=== PATIENT | female | born 1945 | race Caucasian/White ===

== ENCOUNTER 2023-05-15 15:33 | Inpatient (IN) ==
[2023-05-15 16:41] LABS: Basophils # (auto) 0.03 K/uL (0.00-0.20); Basophils % (auto) 0.2 %; Eosinophils # (auto) 0.01 K/uL (0.00-0.50); Eosinophils % (auto) 0.1 %; Hematocrit (blood only) 31.2 % (37.0-47.0); Hemoglobin 10.7 g/dl (12.0-16.0); Immature Granulocytes # (auto) 0.05 K/uL (0.01-0.20); Immature Granulocytes % (auto) 0.4 %; Lymphocytes # (auto) 0.79 K/uL (1.20-3.40); Lymphocytes % (auto) 6.2 %; Mean Corpuscular Hemoglobin 29.6 pg (25.0-34.0); Mean Corpuscular Hgb Conc 34.3 g/dL (32.0-36.0); Mean Corpuscular Volume 86.4 fL (80.0-100.0); Mean Platelet Volume 10.7 fL (9.4-12.4); Monocytes # (auto) 1.59 K/uL (0.11-0.59); Monocytes % (auto) 12.5 %; Neutrophils # (auto) 10.23 K/uL (1.40-6.50); Neutrophils % (auto) 80.6 %; Platelet Count 212 K/uL (130-400); RDW Coefficient of Variation 14.6 % (11.5-14.5); RDW Standard Deviation 46.9 fL (36.4-46.3); Red Blood Count 3.61 M/uL (4.20-5.40)
--- NOTE | 2023-05-15 16:45 | XRay Report ---
XR chest 1V not portable HISTORY: 78 years-old Female Weakness weakness COMPARISON: None TECHNIQUE: AP view of the chest FINDINGS: Cardiomediastinal and hilar silhouettes are within normal limits. The patient is mildly rotated. No p neumothorax, pleural effusion, airspace consolidation or overt pulmonary edema. Displaced and impacte d comminuted left proximal humeral fracture. IMPRESSION: 1. No acute cardiopulmonary abnormality. 2. Displaced, comminuted and impacted left proximal humeral fracture, possibly subacute. ACT 112: Negative or not required by law. The above report was generated using voice recognition software. It may contain grammatical, syntax o r spelling errors. Electronically signed by: Socrates Copeland M.D. 05/15/2023 4:43 PM
[2023-05-15 16:59] LABS: Albumin Globulin Ratio 1.8 (0.9-2); Albumin Level 3.9 gm/dl (3.4-5.0); BUN Creatinine Ratio 32.7 (10-20); Bilirubin,Total 1.9 mg/dl (0.2-1.0); Calcium 9.6 mg/dl (8.6-10.3); Creatinine Clr Calc Pharmacy 47.1 ml/min; Est GFR (African American) 64.5 ml/min; Est GFR (Non-African American) 55.6 ml/min; Globulin 2.2 gm/dl (2.5-4.0); Magnesium 1.9 mg/dl (1.7-2.4); Potassium 4.4 mmol/L (3.5-5.1); Total Protein 6.1 gm/dl (6.0-8.3)
[2023-05-15 17:05] LABS: Partial Thromboplastin Ratio 0.8; Partial Thromboplastin Time 22 Seconds (21-31); Troponin I High Sensitivity 35.7 pg/ml (0-14)
[2023-05-15 17:14] LABS: Thyroid Stimulating Hormone 0.755 uIu/ml (0.300-4.500)
--- NOTE | 2023-05-15 17:31 | Emergency Department Note ---
Impression & Plan Generalized weakness, Left humeral fracture, Fall from standing, Rhabdomyolysis, Elevated CK, Acute hyponatremia, Non-ST elevation IN (NSTEMI) ED Provider Note HISTORY OF PRESENT ILLNESS: Patient is a 78-year-old female presenting with left shoulder pain and weakness. Patient's landlord who checked on the patient today and found her down on the ground provides most of the history. Reports that the patient fell 3 days ago. She reportedly fell and hit her head 3 days ago. She was found by her landlord sitting on the ground in her apartment today. Patient is amnestic to falling and does not remember any events leading to her fall. She is currently complaining of left shoulder pain, left elbow pain, and left knee pain. She states she is not on any anticoagulation. Landlord was concerned that patient was very confused and called 911. On EMS arrival, she was having difficulties ambulating secondary to weakness. Patient denies any chest pain or shortness of breath. Denies any abdominal pain. ROS: as above PHYSICAL EXAM: Constitutional: Patient appears in no acute distress. HENT: Head: Normocephalic. Old appearing ecchymosis to the right forehead. Eyes: EOMI, PERRL Mouth/Throat: Mucous membranes moist. Neck: Trachea midline. Neck supple. No midline cervical spine tenderness to palpation. Cardiovascular: RRR, No murmurs, rubs or gallops. Intact distal pulses. Pulmonary/Chest: No respiratory distress. Breath sounds clear and equal bilaterally. No wheezes or rales. No chest wall tenderness to palpation. Abdominal: Abdomen soft, no tenderness, rebound or guarding. Back: No midline spinal tenderness, no paraspinal tenderness, no CVA tenderness. Musculoskeletal: - LUE: Ecchymosis and swelling diffusely across the left shoulder. No open wounds. Unable to range his shoulder secondary to pain. Patient also has ecchymosis to the left lateral elbow. She is able to flex and extend at the elbow. Intact radial pulse. Able to give thumbs up, okay sign and cross fingers. - LLE: Patient is able to straight leg raise bilaterally. No reproducible tenderness to palpation of the pelvis. She does have ecchymosis to the medial part of her left knee. Able to flex and extend the knee without significant pain. Intact DP and PT pulses. Able to dorsiflex and plantarflex at the ankle. Skin: Warm and dry. No rash, erythema, pallor or cyanosis Psychiatric: Appropriate mood and affect for situation. Neurological: Alert and keenly responsive. CN II-XII grossly intact, moving all extremities equally and fully. MDM: - Vitals signs showed tachypnea. - History obtained via patient and patient's landlord, given patient's confusion. Patient presents with left shoulder pain and weakness. Patient reportedly has been having recurrent falls in the last few days that she is amnestic to. Her landlord went to check on her today and found her on the ground. Patient is complaining of left shoulder pain. Denies any chest pain or shortness of breath. Denies any dysuria or hematuria. - Chronic conditions affecting care: CKD; hypothyroidism; HTN - Differential diagnoses include, but are not limited to: UTI; intracranial hemorrhage; CVA; humeral fracture; electrolyte abnormality - Order placed for continuous cardiac monitoring. At this time, monitor showed rate of 82 bpm with normal sinus rhythm, per my interpretation. - External medical records reviewed. History and physical note dated 10/05/2020 was reviewed. Patient follows in [facility] ophthalmology for her cataracts. - EKG interpreted by myself showed normal sinus rhythm. Rate 79 bpm. QT 410. No acute ischemic changes. - Laboratory workup interpreted by myself showed leukocytosis (WBC 12.70) with left shift; hyponatremia (Na 128); normal creatinine; elevated CK (1180); elevated troponin (35.7) - CXR negative for pneumonia, per my interpretation. Radiology did note a displaced, comminuted and impacted left proximal humeral fracture - Xray knee negative for fracture, per my interpretation - Xray left elbow negative for fracture - CT head wo contrast negative for acute intracranial pathology - CT cervical spine wo negative for acute cervical spine fracture, but he did have a right clavicular head fracture. - Patient given 1L NS in ER - Significant concern for patient's ability to care for self at home. Will admit to hospitalist service. - Discussion was had with adult protective caseworker about patient's case and need for admission - Hospitalist consulted for admission - Patient admitted to [facility] hospitalist service for further evaluation and management. ASSESSMENT AND PLAN: Diagnosis: generalized weakness; left humeral fracture; acute hyponatremia; rhabdomyolysis; NSTEMI; elevated CK Plan: admit Past Med/Surg History Medical History History of colon polyps Endometrial cancer HX HYSTERECTOMY 20 YR AGO , HX RADIATION Hypothyroid HTN (hypertension) Chronic kidney disease Surgical History History of cataract surgery LEFT History of colonoscopy History of hysterectomy Family History Family/Other Hypertension Grandmother Breast cancer Brother Cancer Brother Cancer Social History Smoking Status: Former smoker Do You Dip or Chew Tobacco: No; Hx Alcohol Use: Yes Alcohol type: wine Preferred Language: Ukrainian Communication Ability: Effective Visual Impairment: Limited Hearing Ability: Normal 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: No Beliefs That Will Affect Care: None marital status: Single Current Living Situation: Alone current occupational status: retired Feels Safe at Home: Yes Assistive Devices: Glasses Allergies Allergies Allergy/AdvReac Type Severity Reaction Status Date / Time Penicillins Allergy Intermediate HX ASTHMA, Verified 05/15/23 16:52 MADE ASTHMA LIKE SYMPTOMS WORSE Home Meds Home Medications Medication Instructions Recorded Confirmed aspirin 81 mg tablet,delayed 81 mg PO DAILY 04/25/19 05/15/23 release (Adult Low Dose Aspirin) hydrochlorothiazide 25 mg tablet 25 mg PO QAM 04/25/19 05/15/23 latanoprost 0.005 % eye drops 1 drops OPB QPM 04/25/19 05/15/23 lisinopril 40 mg tablet 40 mg PO QAM 04/25/19 05/15/23 atorvastatin 20 mg tablet 20 mg PO QAM 05/15/23 05/15/23 carvedilol 12.5 mg tablet 12.5 mg PO BID 05/15/23 05/15/23 cholecalciferol (vitamin D3) 25 25 mcg PO DAILY 05/15/23 05/15/23 mcg (1,000 unit) capsule (Vitamin D3) levothyroxine 112 mcg tablet 112 mcg PO DAILYBB 05/15/23 05/15/23 vitamin B complex-vitamin C-folic 1 tab PO DAILY 05/15/23 05/15/23 acid 1 mg tablet Results & Data (ED) Vital Signs Vital Signs - 24 hr 05/15/23 15:24 05/15/23 15:24 05/15/23 16:20 Temperature 36.8 C Temperature Source Oral Pulse Rate 90 Respiratory Rate 25 H Respiratory Effort / Characteristics Non-Labored Spontaneous Respiratory Depth Normal Respiratory Pattern Regular Blood Pressure 107/73 Blood Pressure Mean 84 Pulse Oximetry 97 97 97 Oxygen Delivery Method Room Air Room Air Room Air Oxygen Flow Rate 0 0 Sepsis Recent Fever Within 48 Hours No Sepsis New/Unexplained Change in Mental Status Yes Sepsis Action Taken by Nursing No Action Required 05/15/23 16:20 05/15/23 17:10 Temperature Temperature Source Pulse Rate 81 Respiratory Rate Respiratory Effort / Characteristics Respiratory Depth Respiratory Pattern Blood Pressure Blood Pressure Mean Pulse Oximetry 97 Oxygen Delivery Method Room Air Oxygen Flow Rate Sepsis Recent Fever Within 48 Hours Sepsis New/Unexplained Change in Mental Status Sepsis Action Taken by Nursing Laboratory Data 05/15/23 16:00 05/15/23 16:00 Lab Results 05/15/23 05/15/23 Range/Units 16:00 17:31 WBC 12.70 H (4.8-10.8) K/ul RBC 3.61 L (4.20-5.40) M/uL Hgb 10.7 L (12.0-16.0) g/dl Hct 31.2 L (37.0-47.0) % MCV 86.4 (80.0-100.0) fL MCH 29.6 (25.0-34.0) pg MCHC 34.3 (32.0-36.0) g/dL RDW Std Deviation 46.9 H (36.4-46.3) fL RDW Coeff of Nanci 14.6 H (11.5-14.5) % Plt Count 212 (130-400) K/uL MPV 10.7 (9.4-12.4) fL Immature Gran % (Auto) 0.4 % Neut % (Auto) 80.6 % Lymph % (Auto) 6.2 % Cocke % (Auto) 12.5 % Eos % (Auto) 0.1 % Baso % (Auto) 0.2 % Neut # (Auto) 10.23 H (1.40-6.50) K/uL Lymph # (Auto) 0.79 L (1.20-3.40) K/uL Cocke # (Auto) 1.59 H (0.11-0.59) K/uL Eos # (Auto) 0.01 (0.00-0.50) K/uL Baso # (Auto) 0.03 (0.00-0.20) K/uL Immature Gran # (Auto) 0.05 (0.01-0.20) K/uL PT 11.0 (9.0-12.0) Seconds INR 1.0 (0.9-1.1) APTT 22 (21-31) Seconds PTT Ratio 0.8 Sodium 128 L (136-145) mmol/L Potassium 4.4 (3.5-5.1) mmol/L Chloride 93 L (98-107) mmol/L Carbon Dioxide 25 (21-32) mmol/L Anion Gap 10 (3-11) BUN 32 H (6-23) mg/dl Creatinine 0.98 (0.6-1.2) mg/dl Est Cr Clr Drug Dosing 47.1 ml/min Est GFR ( Amer) 64.5 ml/min Est GFR (Non-Af Amer) 55.6 ml/min BUN/Creatinine Ratio 32.7 H (10-20) Glucose 109 H (70-99(Fasting)) mg/dl Osmolality 275 L (280-300) mOsm/kg Calcium 9.6 (8.6-10.3) mg/dl Magnesium 1.9 (1.7-2.4) mg/dl Total Bilirubin 1.9 H (0.2-1.0) mg/dl AST 53 H (13-39) U/L ALT 29 (7-52) U/L Alkaline Phosphatase 52 (34-104) U/L Total Creatine Kinase 1180 H Cancelled (26-192) U/L Troponin I High Sens 35.7 H (0-14) pg/ml Total Protein 6.1 (6.0-8.3) gm/dl Albumin 3.9 (3.4-5.0) gm/dl Globulin 2.2 L (2.5-4.0) gm/dl Albumin/Globulin Ratio 1.8 (0.9-2) TSH 0.755 (0.300-4.500) uIu/ml Administered Medications Discontinued Medications Sodium Chloride (Nss) 1,000 mls @ 999 mls/hr IV .Q1H1M ONE Stop: 05/15/23 18:31 Last Admin: 05/15/23 18:05 Dose: 999 mls/hr Documented By: WISAM Imaging Data Radiologist's Impression: Chest X-Ray 05/15/23 16:20 XR chest 1V not portable HISTORY: 78 years-old Female Weakness weakness COMPARISON: None TECHNIQUE: AP view of the chest FINDINGS: Cardiomediastinal and hilar silhouettes are within normal limits. The patient is mildly rotated. No pneumothorax, pleural effusion, airspace consolidation or overt pulmonary edema. Displaced and impacted comminuted left proximal humeral fracture. IMPRESSION: 1. No acute cardiopulmonary abnormality. 2. Displaced, comminuted and impacted left proximal humeral fracture, possibly subacute. ACT 112: Negative or not required by law. The above report was generated using voice recognition software. It may contain grammatical, syntax or spelling errors. Electronically signed by: Socrates Copeland M.D. 05/15/2023 4:[address] 05/15/23 17:26 CT SCAN OF THE CERVICAL SPINE CLINICAL HISTORY: Fall. COMPARISON STUDY: No priors. TECHNIQUE: CT scan of the cervical spine is performed from the skull base to the upper thoracic spine. Images are reviewed in the axial, sagittal, and coronal planes. IV contrast was not administered for this examination. A dose lowering technique was utilized adhering to the principles of ALARA. FINDINGS: Skeletal structures: The skeletal structures are osteopenia. There is no evidence of fracture or subluxation involving the cervical spine. Vertebral body height and alignment are maintained. Tiny anterior osteophytes are seen throughout. The odontoid process and lateral masses are intact. The atlantoaxial articulation is preserved noting mild productive degenerative change. The spinous processes appear intact. A comminuted fracture of the right clavicle is partially imaged. Intervertebral discs: There is mild multilevel disc space narrowing, greatest at C5-C6 and C6-C7. Central canal: A posterior disc osteophyte complex at C5-C6 may contribute to mild acquired compromise of the central canal. Soft tissues: The prevertebral and paraspinous soft tissues are within normal limits. The thyroid gland is atrophic. There is atherosclerotic calcification of the carotid bulbs. There is hemorrhage around a right clavicular fracture. Calvarium: The visualized calvarium at the skull base appears intact. Brain parenchyma: Partially visualized brain parenchyma at the skull base is within normal limits. Sinuses and mastoids: There is trace mucosal thickening in the right maxillary antrum. The mastoid air cells are well pneumatized. Lung apices: Clear as visualized. IMPRESSION: 1. There is no evidence of fracture or subluxation involving the cervical spine. 2. Osteopenia and spondylotic change as above. 3. A comminuted fracture of the right clavicular head is partially visualized. ACT 112: Negative or not required by law. Electronically signed by: Amrit Delgado M.D. 05/15/2023 6:[address] 05/15/23 17:26 CT SCAN OF THE BRAIN WITHOUT IV CONTRAST CLINICAL HISTORY: Fall. COMPARISON STUDY: No priors. TECHNIQUE: Unenhanced axial CT scan of the brain is performed from the vertex to the skull base. A dose lowering technique was utilized adhering to the principles of ALARA. CT DOSE: 1601.13 mGy.cm FINDINGS: Brain parenchyma: There is age-related involutional change noting advanced confluent subcortical and periventricular microangiopathic disease. There is no hemorrhage, mass effect, or evidence of acute territorial ischemia by CT criteria. Frederick-white matter differentiation is preserved. No extra-axial fluid collection is seen. Ventricles, sulci, cisterns: Prominent secondary to involutional change. Intracranial vasculature: There is atherosclerotic calcification of the cavernous carotid and vertebral arteries. Calvarium: The skeletal structures are osteopenic. No depressed calvarial fracture is identified. Sinuses and mastoids: The visualized paranasal sinuses are clear. The mastoid air cells are well pneumatized. Orbits: The bony orbits are grossly intact. There are bilateral ocular lens implants. IMPRESSION: There is no hemorrhage, mass effect, or evidence of acute territorial ischemia by CT criteria. ACT 112: Negative or not required by law. Electronically signed by: Amrit Delgado M.D. 05/15/2023 6:38 PM Discharge Plan Visit Data Chief Complaint: Altered Mental Status ED Provider: Elizabeth Guerrero Discharge Problem: Generalized weakness, Left humeral fracture, Fall from standing, Rhabdomyolysis, Elevated CK, Acute hyponatremia, Non-ST elevation IN (NSTEMI) Forms Stand Alone Forms: [facility] Prescriptions Prescriptions: No Action aspirin [Adult Low Dose Aspirin] 81 mg tablet,delayed release (DR/EC) 81 mg PO DAILY hydrochlorothiazide 25 mg tablet 25 mg PO QAM latanoprost 0.005 % drops 1 drops OPB QPM Patient Comments: BOTH EYES lisinopril 40 mg tablet 40 mg PO QAM atorvastatin 20 mg tablet 20 mg PO QAM carvedilol 12.5 mg tablet 12.5 mg PO BID B complex-vitamin C-folic acid 1 mg Tablet 1 tab PO DAILY levothyroxine 112 mcg tablet 112 mcg PO DAILYBB cholecalciferol (vitamin D3) [Vitamin D3] 25 mcg (1,000 unit) Capsule 25 mcg PO DAILY Referrals Referrals: Paul De La Rosa, [Primary Care Provider] -
--- NOTE | 2023-05-15 17:57 | Electrocardiogram Report ---
Test Reason : Blood Pressure : / mmHG Vent. Rate : 079 BPM Atrial Rate : 079 BPM P-R Int : 162 ms QRS Dur : 088 ms QT Int : 410 ms P-R-T Axes : 036 -47 061 degrees QTc Int : 470 ms Normal sinus rhythm Left axis deviation Low voltage QRS Abnormal ECG When compared with ECG of 30-JUL-2013 15:34, Premature ventricular complexes are no longer Present Confirmed by Valeriy Wen ([id number]) on 05/15/2023 5:57:32 PM Referred By: Confirmed By:Valeriy Wen
[2023-05-15] MEDS: SODIUM CHLORIDE 0.9% 1,000 ML IV ONE ×2 (18:05→21:08)
--- NOTE | 2023-05-15 18:26 | History & Physical Report ---
Date of Service May 15, 2023 Assessment & Plan (1) Acute metabolic encephalopathy: Plan: This is a 78-year-old female with PMH of hypertension, CKD 3, dyslipidemia, acquired hypothyroidism, chronic borderline hyponatremia and other medical problems listed below who presents after multiple falls at home and acute metabolic encephalopathy in setting of UTI and rhabdomyolysis. In setting of UTI and rhabdo Mentation improving in ED, but unsure nature or details of either fall CT head without acute intracranial abnormality Expect improvement with IV fluids, abx (2) UTI (urinary tract infection): Plan: Abnormal UA. Started on empiric Rocephin, follow urine culture (3) Rhabdomyolysis: Plan: CK >1000 in setting of falls Cr at baseline ~ 1 Initial HS trop mildly elevated at 35.7, no chest pain or acute EKG changes Continue IV fluids, repeat CK in AM (4) Repeated falls: (5) Traumatic ecchymosis of left upper arm: (6) Clavicular fracture: (7) Proximal humeral fracture: Plan: Has had at least 2 unwitnessed falls in the past few days with extensive bruising on L arm Lives alone and ambulates independently at baseline Evidence of displaced, comminuted and impacted left proximal humeral fracture, possibly subacute Added shoulder XR for better visualization Ortho consulted, pain control, fall precautions, PT/OT when able (8) CKD (chronic kidney disease), stage III: Plan: Follows with Dr. Stevens, h/o renal stones. Cr at baseline ~1. Continue to monitor with daily BMP (9) HTN (hypertension): Plan: Home regimen includes carvedilol 12.5mg BID, hctz and lisinopril 40mg Given 1L NSS in ED but BP remains borderline low. Continue IV fluids overnight, will hold antihypertensives, to be reassessed tomorrow (10) Hypothyroidism: Plan: Continue levothyroxine DVT Ppx: SCDs Code status: FULL PCP: Janes De La Rosa Dispo: Admitted to PCU Updated patient's cousin Noemi over the phone [phone] (closest living relative), resides in [place] is looking for patient's advance directive paperwork at home. Patient seen in collaboration with Dr. Owens. Please see addendum. I spent a total of 75 minutes coordinating, documenting, and providing care for this patient excluding time spent in the performance of separately billed services. History of Present Illness Chief Complaint: Altered mental status Primary Care Provider: Paul De La Rosa DO This is a 78-year-old female with PMH of hypertension, CKD 3, dyslipidemia, acquired hypothyroidism, chronic borderline hyponatremia and other medical problems listed below who presents after multiple falls at home and altered mental status. History primarily obtained from landlord as patient does not remember events from the past few days other than she felt that she has been in a "black hole". Patient lives in [facility] and predominantly student housing and has lived in the building for the past 40 years. He is close to both the landlord and maintenance staff, who check in on her a few times per week. At baseline, patient is alert and oriented, independent with A DLs and walks a few miles a day. [place] or [place] when she fell a few days ago. Does not remember any details of the fall. When the maintenance staff checked on patient earlier today, she was found on the ground in between the bathroom in her bedroom and was brought to the ED for further evaluation. Patient does not remember any details of this fall or how long she was on the ground. Endorses pain in areas with bruising such as left arm, left knee and right forehead. Denies any fever, chills, lightheadedness, chest pain, shortness of breath, nausea, vomiting, abdominal pain, dysuria, hematuria, diarrhea or constipation. Does not have any close living family but does have a cousin who resides in [place]. Otherwise considers as close his family. 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 Allergies Allergy/AdvReac Type Severity Reaction Status Date / Time Penicillins Allergy Intermediate HX ASTHMA, Verified 05/15/23 16:52 MADE ASTHMA LIKE SYMPTOMS WORSE Home Medications Medication Instructions Recorded Confirmed Type aspirin 81 mg tablet,delayed 81 mg PO DAILY 04/25/19 05/15/23 History release (Adult Low Dose Aspirin) hydrochlorothiazide 25 mg tablet 25 mg PO QAM 04/25/19 05/15/23 History latanoprost 0.005 % eye drops 1 drops OPB QPM 04/25/19 05/15/23 History lisinopril 40 mg tablet 40 mg PO QAM 04/25/19 05/15/23 History atorvastatin 20 mg tablet 20 mg PO QAM 05/15/23 05/15/23 History carvedilol 12.5 mg tablet 12.5 mg PO BID 05/15/23 05/15/23 History cholecalciferol (vitamin D3) 25 25 mcg PO DAILY 05/15/23 05/15/23 History mcg (1,000 unit) capsule (Vitamin D3) levothyroxine 112 mcg tablet 112 mcg PO DAILYBB 05/15/23 05/15/23 History vitamin B complex-vitamin C-folic 1 tab PO DAILY 05/15/23 05/15/23 History acid 1 mg tablet Past Med/Surg History Medical History CKD (chronic kidney disease), stage III Hypothyroidism History of colon polyps Endometrial cancer HX HYSTERECTOMY 20 YR AGO , HX RADIATION HTN (hypertension) Surgical History Status post EDY-BSO History of cataract surgery LEFT History of colonoscopy History of hysterectomy Family History Family/Other Hypertension Grandmother Breast cancer Brother Cancer Brother Cancer Social History Smoking Status: Never smoker Second Hand Exposure: No; Do You Dip or Chew Tobacco: No; Hx Alcohol Use: No Hx Substance Use: No Preferred Language: [place] Sudanese Communication Ability: Effective Visual Impairment: Limited Hearing Ability: Normal Director Sports Required: No Beliefs That Will Affect Care: None marital status: Single Current Living Situation: Alone current occupational status: retired Other Information That Helps Us Care for You: No Feels Safe at Home: Yes Safety Concerns: Feels Safe At This Time Assistive Devices: Cane and Other Review of Systems Review of Systems: At least ten systems reviewed and negative except as noted in the HPI. Physical Exam Physical Exam: General Appearance: WD/WN, vitals as above, NAD, sitting up in bed, pleasant Head: normocephalic, + bruising on R forehead Eyes: normal inspection, PERRL, conjunctivae normal, anicteric sclerae ENT: external ear and nose normal, oropharynx normal Neck: normal visual inspection, trachea midline, no thyromegaly Respiratory: normal respiratory effort, lungs clear to auscultation, no wheeze, rales, rhonchi. No accessory muscle use Cardiovascular: regular rate, rhythm, no murmur, normal peripheral pulses, no BLE edema. Vessels: no JVD Chest: normal inspection of chest Abdomen/GI: normal bowel sounds, soft, nontender, no hepatosplenomegaly Extremities/Musculoskeletal: + Significant ecchymosis and edema of left arm, shoulder displaced, TTP, L medical knee and L foot prox. to great toe with ecchymosis, edema. No cyanosis or clubbing, extremities motor strength 5/5 Neurologic: PERRL, EOMI, accommodation nl, no face palsy, no dysarthria, CN's II-XI intact bilaterally and moves all extremities Psychiatric: A+Ox3 with some transient confusion, limited insight Skin: no rashes, normal color, warm/dry Results & Data Results & Data Vital Signs (Past 12 Hours) Vital Signs Temp Pulse Resp BP Pulse Ox O2 Del Method O2 Flow Rate 05/15/23 17:10 81 05/15/23 16:20 97 Room Air 05/15/23 16:20 97 Room Air 0 05/15/23 15:24 97 Room Air 0 05/15/23 15:24 36.8 C 90 25 H 107/73 97 Room Air Laboratory Results Short CBC 05/15/23 Range/Units 16:00 WBC 12.70 H (4.8-10.8) K/ul Hgb 10.7 L (12.0-16.0) g/dl Hct 31.2 L (37.0-47.0) % Plt Count 212 (130-400) K/uL BMP 05/15/23 16:00 Sodium 128 L Potassium 4.4 Chloride 93 L Carbon Dioxide 25 BUN 32 H Creatinine 0.98 Glucose 109 H Calcium 9.6 Cardiac Enzymes 05/15/23 05/15/23 Range/Units 16:00 17:31 Total Creatine Kinase 1180 H Cancelled (26-192) U/L Liver Function 05/15/23 Range/Units 16:00 Total Bilirubin 1.9 H (0.2-1.0) mg/dl AST 53 H (13-39) U/L ALT 29 (7-52) U/L Alkaline Phosphatase 52 (34-104) U/L Albumin 3.9 (3.4-5.0) gm/dl Diagnostic Findings Chest X-Ray 05/15/23 16:20 XR chest 1V not portable HISTORY: 78 years-old Female Weakness weakness COMPARISON: None TECHNIQUE: AP view of the chest FINDINGS: Cardiomediastinal and hilar silhouettes are within normal limits. The patient is mildly rotated. No pneumothorax, pleural effusion, airspace consolidation or overt pulmonary edema. Displaced and impacted comminuted left proximal humeral fracture. IMPRESSION: 1. No acute cardiopulmonary abnormality. 2. Displaced, comminuted and impacted left proximal humeral fracture, possibly subacute. ACT 112: Negative or not required by law. The above report was generated using voice recognition software. It may contain grammatical, syntax or spelling errors. Electronically signed by: Socrates Copeland M.D. 05/15/2023 4:[address] 05/15/23 17:26 CT SCAN OF THE CERVICAL SPINE CLINICAL HISTORY: Fall. COMPARISON STUDY: No priors. TECHNIQUE: CT scan of the cervical spine is performed from the skull base to the upper thoracic spine. Images are reviewed in the axial, sagittal, and coronal planes. IV contrast was not administered for this examination. A dose lowering technique was utilized adhering to the principles of ALARA. FINDINGS: Skeletal structures: The skeletal structures are osteopenia. There is no evidence of fracture or subluxation involving the cervical spine. Vertebral body height and alignment are maintained. Tiny anterior osteophytes are seen throughout. The odontoid process and lateral masses are intact. The atlantoaxial articulation is preserved noting mild productive degenerative change. The spinous processes appear intact. A comminuted fracture of the right clavicle is partially imaged. Intervertebral discs: There is mild multilevel disc space narrowing, greatest at C5-C6 and C6-C7. Central canal: A posterior disc osteophyte complex at C5-C6 may contribute to mild acquired compromise of the central canal. Soft tissues: The prevertebral and paraspinous soft tissues are within normal limits. The thyroid gland is atrophic. There is atherosclerotic calcification of the carotid bulbs. There is hemorrhage around a right clavicular fracture. Calvarium: The visualized calvarium at the skull base appears intact. Brain parenchyma: Partially visualized brain parenchyma at the skull base is within normal limits. Sinuses and mastoids: There is trace mucosal thickening in the right maxillary antrum. The mastoid air cells are well pneumatized. Lung apices: Clear as visualized. IMPRESSION: 1. There is no evidence of fracture or subluxation involving the cervical spine. 2. Osteopenia and spondylotic change as above. 3. A comminuted fracture of the right clavicular head is partially visualized. ACT 112: Negative or not required by law. Electronically signed by: Amrit Delgado M.D. 05/15/2023 6:[address] 05/15/23 17:26 CT SCAN OF THE BRAIN WITHOUT IV CONTRAST CLINICAL HISTORY: Fall. COMPARISON STUDY: No priors. TECHNIQUE: Unenhanced axial CT scan of the brain is performed from the vertex to the skull base. A dose lowering technique was utilized adhering to the principles of ALARA. CT DOSE: 1601.13 mGy.cm FINDINGS: Brain parenchyma: There is age-related involutional change noting advanced confluent subcortical and periventricular microangiopathic disease. There is no hemorrhage, mass effect, or evidence of acute territorial ischemia by CT criteria. Frederick-white matter differentiation is preserved. No extra-axial fluid collection is seen. Ventricles, sulci, cisterns: Prominent secondary to involutional change. Intracranial vasculature: There is atherosclerotic calcification of the cavernous carotid and vertebral arteries. Calvarium: The skeletal structures are osteopenic. No depressed calvarial fracture is identified. Sinuses and mastoids: The visualized paranasal sinuses are clear. The mastoid air cells are well pneumatized. Orbits: The bony orbits are grossly intact. There are bilateral ocular lens implants. IMPRESSION: There is no hemorrhage, mass effect, or evidence of acute territorial ischemia by CT criteria. ACT 112: Negative or not required by law. Electronically signed by: Amrit Delgado M.D. 05/15/2023 6:38 PM ECG Additional Comments: EKG reviewed- sinus rhythm, no acute ST changes Code Status & VTE Plan VTE Prophylaxis Plan VTE Prophylaxis will be ordered: Yes Supervising Physician Co-Signing Physician Notes Pt was seen and examined by myself, Cheyenne Owens MD on the day of service. Care was coordinated with Pattie Beasley PA-C. 78yoF presenting with AMS and fall. Somewhat confused on exam. Significantly bruised on her face L shoulder, knees and lower extremities Imaging with noted humeral head fracture and possible fracture of the clavicle. UA suggestive of a severe infection, urine Cx pending. IV Rocephin, ortho consult Otherwise as above. I spent a total [id number] coordinating, documenting, and providing care for this patient excluding time spent in the performance of separately billed services
--- NOTE | 2023-05-15 18:40 | CT Scan Report ---
CT SCAN OF THE BRAIN WITHOUT IV CONTRAST CLINICAL HISTORY: Fall. COMPARISON STUDY: No priors. TECHNIQUE: Unenhanced axial CT scan of the brain is performed from the vertex to the skull base. A do se lowering technique was utilized adhering to the principles of ALARA. CT DOSE: 1601.13 mGy.cm FINDINGS: Brain parenchyma: There is age-related involutional change noting advanced confluent subcortical and periventricular microangiopathic disease. There is no hemorrhage, mass effect, or evidence of acute t erritorial ischemia by CT criteria. Frederick-white matter differentiation is preserved. No extra-axial fl uid collection is seen. Ventricles, sulci, cisterns: Prominent secondary to involutional change. Intracranial vasculature: There is atherosclerotic calcification of the cavernous carotid and vertebr al arteries. Calvarium: The skeletal structures are osteopenic. No depressed calvarial fracture is identified. Sinuses and mastoids: The visualized paranasal sinuses are clear. The mastoid air cells are well pneu matized. Orbits: The bony orbits are grossly intact. There are bilateral ocular lens implants. IMPRESSION: There is no hemorrhage, mass effect, or evidence of acute territorial ischemia by CT lor palacio. ACT 112: Negative or not required by law. Electronically signed by: Amrit Delgado M.D. 05/15/2023 6:38 PM
--- NOTE | 2023-05-15 18:59 | CT Scan Report ---
CT SCAN OF THE CERVICAL SPINE CLINICAL HISTORY: Fall. COMPARISON STUDY: No priors. TECHNIQUE: CT scan of the cervical spine is performed from the skull base to the upper thoracic spine . Images are reviewed in the axial, sagittal, and coronal planes. IV contrast was not administered fo r this examination. A dose lowering technique was utilized adhering to the principles of ALARA. FINDINGS: Skeletal structures: The skeletal structures are osteopenia. There is no evidence of fracture or subl uxation involving the cervical spine. Vertebral body height and alignment are maintained. Tiny anteri or osteophytes are seen throughout. The odontoid process and lateral masses are intact. The atlantoax ial articulation is preserved noting mild productive degenerative change. The spinous processes appea r intact. A comminuted fracture of the right clavicle is partially imaged. Intervertebral discs: There is mild multilevel disc space narrowing, greatest at C5-C6 and C6-C7. Central canal: A posterior disc osteophyte complex at C5-C6 may contribute to mild acquired compromis e of the central canal. Soft tissues: The prevertebral and paraspinous soft tissues are within normal limits. The thyroid gla nd is atrophic. There is atherosclerotic calcification of the carotid bulbs. There is hemorrhage arou nd a right clavicular fracture. Calvarium: The visualized calvarium at the skull base appears intact. Brain parenchyma: Partially visualized brain parenchyma at the skull base is within normal limits. Sinuses and mastoids: There is trace mucosal thickening in the right maxillary antrum. The mastoid ai r cells are well pneumatized. Lung apices: Clear as visualized. IMPRESSION: 1. There is no evidence of fracture or subluxation involving the cervical spine. 2. Osteopenia and spondylotic change as above. 3. A comminuted fracture of the right clavicular head is partially visualized. ACT 112: Negative or not required by law. Electronically signed by: Amrit Delgado M.D. 05/15/2023 6:56 PM
--- NOTE | 2023-05-15 19:13 | XRay Report ---
LEFT KNEE 3 VIEWS CLINICAL HISTORY: Fall. Left knee injury. FINDINGS: AP, crosstable lateral, and sunrise views of the left knee are obtained. No prior studies a re available for comparison at the time of dictation. The skeletal structures are osteopenic. No frac ture is seen. There is moderate degenerative narrowing in the medial and patellofemoral compartments. Mild narrowing is seen in the lateral compartment. There is chondrocalcinosis within the medial and lateral components. There are marginal osteophytes, patellar enthesophytes, and degenerative beaking of the tibial spine. A small joint effusion is observed. There is soft tissue edema around the knee. IMPRESSION: 1. Soft tissue swelling and small joint effusion with no fracture identified. 2. Osteopenia with degenerative change and chondrocalcinosis as above. Electronically signed by: Amrit Delgado M.D. 05/15/2023 7:11 PM
--- NOTE | 2023-05-15 19:26 | XRay Report ---
LEFT ELBOW 2 VIEWS CLINICAL HISTORY: Fall. Left arm injury. FINDINGS: AP and lateral views of the left elbow are obtained. No prior studies are available for [facility] at the time of dictation. The skeletal structures are osteopenic. There is no radiographic ev idence of acute fracture or dislocation on this 2 view examination. No joint effusion is identified. Soft tissue edema is seen throughout the left arm. IMPRESSION: Soft tissue swelling with no radiographic evidence of acute fracture. Electronically signed by: Amrit Delgado M.D. 05/15/2023 7:25 PM
[2023-05-15] MEDS ORDERED: ONDANSETRON INJ 2 MG/ML 2 ML VIAL IV PRN (20:10)
[2023-05-15] MEDS ORDERED: ACETAMINOPHEN 325 MG TAB PO PRN (20:10)
[2023-05-15 20:15] LABS: Appearance Urine Cloudy (Clear); Bacteria Urine Automated 1+ (Negative); Bilirubin Urine Negative (Negative); Blood Urine Negative (Negative); Color Urine Dark Yellow; Epithelial Cell Urine Auto >30 /lpf (0-5); Glucose Urine UA Negative (Negative); Ketones Urine Trace (Negative); Leukocyte Esterase Urine 2+ (Negative); Nitrite Urine Positive (Negative); Protein Urine Trace (Negative); Specific Gravity Urine 1.022 (1.000-1.030); Urobilinogen Urine Negative (Negative); pH Urine 5.5 (4.5-7.5)
[2023-05-15 20:42] LABS: Calcium Oxalate Crystals Urine Present (None Prsent); RBC Urine Automated 0-4 /hpf (0-4)
[2023-05-15] MEDS: LATANOPROST 0.005% OP SOLN 2.5 ML BTL OPB SCH (20:45)
[2023-05-15] MEDS: SODIUM CHLORIDE 0.9% 1,000 ML IV SCH (20:45)
[2023-05-15] MEDS: ACETAMINOPHEN 500 MG TAB PO SCH (20:46)
[2023-05-15] MEDS: carvediloL 12.5 MG TAB PO SCH (20:59)
[2023-05-15 21:01] LABS: Amphetamines+Metham, Urine Neg (Neg); Barbiturates, Urine Neg (Neg); Benzodiazepine, Urine Neg (Neg); Cocaine, Urine Neg (Neg); MDMA (Ecstacy), Urine Neg (Neg); Marijuana, Urine Neg (Neg); Methadone, Urine Neg (Neg); Opiate, Urine Neg (Neg); Phencyclidine, Urine Neg (Neg)
[2023-05-15] MEDS: cefTRIAXone SODIUM 1,000 MG in DEXTROSE 5 % MINI-B 50 ML IV SCH (22:36)
[2023-05-16 04:20] LABS: Hematocrit (blood only) 25.2 % (37.0-47.0); Hemoglobin 8.3 g/dl (12.0-16.0); Mean Corpuscular Hemoglobin 29.7 pg (25.0-34.0); Mean Corpuscular Hgb Conc 32.9 g/dL (32.0-36.0); Mean Corpuscular Volume 90.3 fL (80.0-100.0); Mean Platelet Volume 10.8 fL (9.4-12.4); Platelet Count 175 K/uL (130-400); RDW Coefficient of Variation 14.9 % (11.5-14.5); RDW Standard Deviation 49.3 fL (36.4-46.3); Red Blood Count 2.79 M/uL (4.20-5.40); White Blood Count 7.64 K/ul (4.8-10.8)
[2023-05-16 04:42] LABS: Calcium 7.8 mg/dl (8.6-10.3); Creatinine Clr Calc Pharmacy 56.9 ml/min; Est GFR (African American) 81.2 ml/min; Est GFR (Non-African American) 70.1 ml/min; Potassium 3.3 mmol/L (3.5-5.1)
--- OUTSIDE RECORDS SUMMARY | 2023-05-16 06:53 | External Medical Summary | Summary of Care ---
Author Name Unknown Organization [facility] Address [address] [place] [address] Phone [phone] Care Team Providers Care Barrel Turner Name Role Phone Paul De La Rosa DO Primary Care Provider [phone] Reason for Visit * Reason Onset Date Comments Adult Annual Wellness Visit, Subsequent Visit Encounter Details Date Type Department Care Team (Late st Contact Info) Description 03/08/2023 Telephone Ancillary [facility] [address] [facility] [place] [address] Stacey Chawla, JEANINE Adult Annual Wellness Visit, Subsequent Visit Allergies Active Allergy Reactions Criticality Noted Date Comments Penicillins Nausea/vomiting High 07/31/2006 Other reaction(s): HX ASTHMA, MADE ASTHMA LIKE SYMPTOMS WORSE documented as of this encounter (statuses as of 03/23/2023) Medications Medication Sig Dispensed Refills Start Date End Date Status ASPIRIN 81 MG OR TABS one tab by mouth daily 34 5 04/07/2004 Active FLUORIDE TOOTHPASTE DT PSTEIndications:Arr ested dental caries 0 01/18/2009 Activ e B Prdivnh-A-Sqzyy Acid Oral Tablet Take by mouth daily. 0 05/14/2020 Active LORazepam 0.5 MG Oral Tablet (Ativan) 1 Tablet. 0 09/13/2020 Active Vitamin D 25 MCG (1000 UT) Oral Tablet Take 1 Tablet by mouth in the morning. 0 Active hydroCHLOROthiazide 12.5 MG Oral Capsule (Hydrodiuril) TAKE 1 CAPSULE BY MOUTH IN THE MORNING. 90 Capsule 3 07/04/2022 07/04/2023 Active Latanoprost 0.005 % Ophthalmic Solution (Xalatan) instill one drop into both eyes at bedtime for 30 days 2.5 mL 11 08/23/2022 Active Carvedilol 12.5 MG Oral Tablet (Coreg) Take 1 Tablet by mouth in the morning and 1 Tablet before bedtime. 180 Tablet 3 09/27/2022 Active Latanoprost 0.005 % Ophthalmic Solution (Xalatan) instill 1 drop into both eyes at bedtime 7.5 mL 3 09/15/2022 Active Atorvastatin Calcium 20 MG Oral Tablet (Lipitor)Indication s:Dyslipidemia, goal LDL below 130 TAKE ONE TABLET BY MOUTH IN THE MORNING 90 Tablet 3 11/21/2022 Active Levothyroxine Sodium 112 MCG Oral Tablet (Levoxyl) Take 1 Tablet by mouth in the morning. (at least 30 min prior to breakfast or other meds). 90 Tablet 3 11/28/2022 Active Lisinopril 40 MG Oral TabletIndications:E ssential hypertension with goal blood pressure less than 140/90 Take 1 Tablet by mouth in the morning. TAKE ONE TABLET BY MOUTH IN THE MORNING. 90 Tablet 3 11/28/2022 Active documented as of this encounter (statuses as of 03/23/2023) Active Problems Problem Noted Date Diagnosed Date Benign hypertension with stage 3b chronic kidney disease 07/20/2020 Overview: Per CKD protocol Primary open-angle glaucoma, bilateral, moderate stage 07/18/2019 Acquired hypothyroidism 11/17/2015 History of renal stone 05/27/2015 HTN, goal below 140/90 05/25/2015 Dyslipidemia, goal LDL below 130 05/10/2012 ADVANCE DIRECTIVE INFORMATION 07/23/2007 Overview: Yes, Patient instructed to provide copy of advance directive for provider to review and to be scanned into Electronic Medical Record documented as of this encounter (statuses as of 03/23/2023) Resolved Problems Problem Noted Date Diagnosed Date Resolved Date Benign hypertension with CKD (chronic kidney disease) stage III 06/15/2017 07/22/2020 Overview: Per CKD protocol Hyponatremia 05/25/2015 07/05/2018 HTN, goal below 140/90 10/09/201311/26 HTN, goal below 130/80 04/08/200910/09 Overview: Per HTN Taxonomy. Dyslipidemia, goal LDL below 100 02/25/2009 05/10/2012 Overview: Per Lipid Taxonomy. 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 HTN, goal below 140/90 07/24/200104/08 Overview: Per HTN Taxonomy. Malignant neoplasm of corpus uteri 07/20/2000 12/13/2016 Other disorder of menstruati on and other abnormal bleeding from female genital tract 07/04/2000 08/07/2000 CA IN SITU CERVIX UTERI 07/10 CKD (chronic kidney disease) stage 3, GFR 30-59 ml/min 04/25/2018 Overview: non functioning right kidney documented as of this encounter (statuses as of 03/23/2023) Immunizations Name Administration Dates Next Due COVID-19 mRNA, LNP-s, No Pre serve, 2-Dose Series (Moderna) 06/19/2020,05/17/2020 COVID-19, mRNA, LNP-s, PF, B ooster, 100mcg/0.5mg (Moderna) 08/01/2021,01/25/2021 Covid-19, Mrna, Lnp-s, Pf, B ivalent, 30 Mcg, IM, 12 yrs and above (Pfizer) 12/01/2021 Covid-19, Mrna, Lnp-s, Pf, B ivalent, 50 Mcg, IM, 12 yrs and above (Moderna) 08/25/2022 Pneumococcal Conjugate Vacc, 13 Valent (Prevnar) 05/27/2015 Pneumococcal Polysaccharide PPV23 (Pneumovax) 11/19/2013,02/14/2007 Season Influenza, Quad, PF, Adjuvanted, 65+ Yrs, IM (FLUAD) 01/20/2020 Seasonal Influenza, PF, 6 M & above, IM , (FluLaval or Fluzone) 12/31/2017,12/13/2016 Seasonal Influenza, Quadriva lent Hd (Fluzone Hd) 11/28/2022,01/16/2022,02/22/2021 Seasonal Influenza, Quadriva lent, No Preserve, IM 12/15/2015 12/14/2016 Seasonal Influenza, Split, I IV3, With Preserve, Inj 11/26/2014,11/19/2013,11/23/2012,11/10,04/12/2011,01/03/2010,02/15/20 07,01/12/2006 Seasonal Influenza, Trivalen t, Adjuvanted, 65+ yrs 01/13/2019 TDAP (age 10 and older)(Boostrix) 11/07/2021 TDAP (age 11 and older)(Adacel) 07/29/2011,07/31 Varicella Zoster Vaccine (Adult) 09/14/2008 Zoster Vaccine Recombinant (Shingrix) 11/10/2019 ,07/21/2019 documented as of this encounter Social History Tobacco Use Types Packs/Day Years Used Date Smoking Tobacco: Never Smokeless Tobacco: Never Alcohol Use Standard Drinks/Week Comments Yes 0 (1 standard drink = 0.6 oz pur e alcohol) infreq. PHQ-2 Answer Date Recorded PHQ Adult Total Score 3 02/13/2022 Hunger Vital Sign Answer Date Recorded Within the past 12 months, y ou worried that your food would run out before you got the money to buy more. Never true 05/21/19 23 Within the past 12 months, t he food you bought just didn't last and you didn't have money to get more. Never true 05/20/2022 Sex and Gender Information Value Date Recorded Sex Assigned at Female 11/04/2021 11:13 PM EDT Gender Identity Female 11/04/2021 11:13 PM EDT Sexual Orientation Straight 11/04/2021 11 :13 PM EDT Sexual Orientation Something else 11/04/2021 11 :13 PM EDT Job Start Date Occupation Industry Not on file Not on file Not on file documented as of this encounter Miscellaneous Notes * Telephone Encounter - Stacey Chawla, JEANINE - 03/08/2023 2:08 PM EST Provider to address: nothing Reason for Call: No chief complaint on file. Contact: [facility] Contact Type: Information Outcome: Sent message to patient to schedule an AWV Face to face time spent with Patient (minutes): 0 Total Time including non face to face (minutes): 10 documented in this encounter Plan of Treatment Upcoming Encounters Date Type Department Care Team (Late st Contact Info) Description 03/30/2023 2:40 PM EST Office Visit Nephrology, [facility] [address] [facility] [place] [address] Héctor Stevens MD [address] [facility] [place] [address] 07/02/2023 12:40 PM EDT Office Visit Family Practice [facility] [place] [facility] [address] [facility] [place] [address] Paul De La Rosa, DO [address] [facility] [place] [address] Scheduled Procedures Name Priority Associated Diagnoses Date/Ti me COLONOSCOPY FLEXIBLE PROXIMA L DIAGNOSTIC Recall Special screening for malignant neoplasms, colon Health Maintenance Due Date Last Done Comments COVID-19 Vaccine ( season) 2022 08/25/2022, 12/01/2021, 08/01/2021, Additional history exists Depression Screening 02/13/2023 02/13/2022 Albumin/Creatinine Ratio 05/24/202305/23/2 023, 01/06/2019, 03/28/2018, Additional history exists GFR 09/21/2023 03/23/2023, 11/10, 05/23/2022, Additional history exists CKD HGB USE SMARTSET 35956 11/24/202311/23, 11/23/2022, 03/24/2022, Additional history exists TSH 11/24/2023 11/23/2022, 05/10, 11/02/2021, Additional history exists CKD PHOS USE SMARTSET 13819 03/23/202403/12, 11/23/2022, 03/24/2022, Additional history exists DTaP,Tdap,and Td Vaccines (4 - Td or Tdap) 11/08/2031 11/07/2021, 07/29/2011, 07/31/2006, Additional history exists Pneumococcal Vaccine: 65+ Years Completed 05/27/2015, 11/19/2013, 02/14/2007 Zoster Vaccines Completed 11/10/2019, 07/10, 09/14/2008 Influenza Vaccine (FLU shot) Completed , 01/16/2022, 02/22/2021, Additional history exists GARDASIL-HPV IMMUNIZATION SERIES Aged Out No longer eligible based on patient's age to complete this topic Hepatitis B Aged Out No longer eligi ble based on patient's age to complete this topic MENINGOCOCCAL (MENACTRA/MENVEO) Aged Out No longer eligible based on patient's age to complete this topic documented as of this encounter Medical Devices Not on filedocumented as of this encounter Advance Directives Documents on File Type Date Recorded Patient Quality Controller Expl anation Power of Branch Banker 07/31/2006 Care Teams Barrel Turner Relationship Specialty Start Date End Date Paul De La Rosa DO [address] [place] [address] PCP - General Family Medicine 09/26/16 documented as of this encounter
--- OUTSIDE RECORDS SUMMARY | 2023-05-16 06:53 | External Medical Summary | Summary of Care ---
Author Name Unknown Organization [facility] Address [address] [place] [address] Phone [phone] Care Team Providers Care Freezer Machine Operator Name Role Phone Paul De La Rosa DO Primary Care Provider [phone] Reason for Visit * Reason Onset Date Comments Medication Administration 11/28/2022 Flu an d/or Pneumo Inj Encounter Details Date Type Department Care Team Description 11/28/2022 Office Visit Family Practice [facility] [address] [place] [address] Paul De La Rosa DO [address] [place] [address] Essential hypertension with goal blood pressure less than 140/90*; Need for prophylactic vaccination and inoculation against influenza; Dyslipidemia, goal LDL below 130; Acquired hypothyroidism; Benign hypertension with stage 3b chronic kidney disease (HCC) Allergies Active Allergy Reactions Severity Noted Date Comments Penicillins Nausea/vomiting High 07/31/2006 Other reaction(s): HX ASTHMA, MADE ASTHMA LIKE SYMPTOMS WORSE documented as of this encounter (statuses as of 11/28/2022) Medications Medication Sig Dispensed Refills Start Date End Date Status ASPIRIN 81 MG OR TABS one tab by mouth daily 34 5 04/07/2004 Active FLUORIDE TOOTHPASTE DT PSTEIndications:Ar rested dental caries 0 01/18/2009 Active B Zvotkht-A-Fbeqe Acid Oral Tablet Take by mouth daily. 0 05/14/2020 Active LORazepam 0.5 MG Oral Tablet (Ativan) 1 Tablet. 0 09/13/2020 Active Vitamin D 25 MCG (1000 UT) Oral Tablet Take 1 Tablet by mouth in the morning. 0 Active hydroCHLOROthiazid e 12.5 MG Oral Capsule (Hydrodiuril) TAKE 1 CAPSULE BY MOUTH IN THE MORNING. 90 Capsule 3 07/04/2022 4 Active Latanoprost 0.005 % Ophthalmic Solution (Xalatan) [...] Active Atorvastatin Calcium 20 MG Oral Tablet (Lipitor)Indicatio ns:Dyslipidemia, goal LDL below 130 TAKE ONE TABLET BY MOUTH IN THE MORNING 90 Tablet 3 11/21/2022 Active Levothyroxine Sodium 112 MCG Oral Tablet (Levoxyl) Take 1 Tablet by mouth in the morning. (at least 30 min prior to breakfast or other meds). 90 Tablet 3 11/28/2022 Active Lisinopril 40 MG Oral TabletIndications: Essential hypertension with goal blood pressure less than 140/90 Take 1 Tablet by mouth in the morning. TAKE ONE TABLET BY MOUTH IN THE MORNING. 90 Tablet 3 11/28/2022 Active latanoprost (XALATAN) 0.005 % ophthalmic solutionIndication s:Glaucoma of both eyes, unspecified glaucoma type 1 Drop at bedtime. 2.5 mL 12 12/13/2016 3 Discontinue d(Medicatio n List Clean Up) Lisinopril 40 MG Oral TabletIndications: Essential hypertension with goal blood pressure less than 140/90 TAKE ONE TABLET BY MOUTH IN THE MORNING 90 Tablet 3 11/07/2021 3 Discontinue d(Refill) Levothyroxine Sodium 112 MCG Oral Tablet (Levoxyl) Take 1 Tablet by mouth in the morning. (at least 30 min prior to breakfast or other meds). 90 Tablet 3 05/30/2022 3 Discontinue d(Refill) documented as of this encounter (statuses as of 11/28/2022) Active Problems Problem Noted Date Benign hypertension with stage 3b chroni c kidney disease 07/20/2020 Overview: Per CKD protocol Primary open-angle glaucoma, bilateral, moderate stage 07/18/2019 Acquired hypothyroidism 11/17/2015 History of renal stone 05/27/2015 HTN, goal below 140/90 05/25/2015 Dyslipidemia, goal LDL below 130 013 ADVANCE DIRECTIVE INFORMATION 07/23/2007 Overview: Yes, Patient instructed to provide copy of advance directive for provider to review and to be scanned into Electronic Medical Record documented as of this encounter (statuses as of 11/28/2022) Resolved Problems Problem Noted Date Resolved Date Benign hypertension with CKD (chronic kidney disease) stage III 06/15/2017 07/22/2020 Overview: Per CKD protocol Hyponatremia 05/25/2015 07/05/2018 HTN, goal below 140/90 10/09/2013 5 HTN, goal below 130/80 04/08/2009 4 Overview: Per HTN Taxonomy. Dyslipidemia, goal LDL below 100 02/25/2009 05/10/2012 Overview: Per Lipid Taxonomy. 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 HTN, goal below 140/90 07/24/2001 0 Overview: Per HTN Taxonomy. Malignant neoplasm of corpus uteri 07/20/2000 12/13/2016 Other disorder of menstruati on and other abnormal bleeding from female genital tract 07/04/2000 08/07/2000 CA IN SITU CERVIX UTERI 07/21/19 CKD (chronic kidney disease) stage 3, GFR 30-59 ml/min 04/25/2018 Overview: non functioning right kidney documented as of this encounter (statuses as of 11/28/2022) Immunizations Name Administration Dates Next Due COVID-19 [...] IM (FLUAD) 01/20/2020 Seasonal Influenza, PF, 6 mo ns & Above, IM , (Flulaval) 12/31/2017,12/13/2016 Seasonal Influenza, Quadriva lent Hd (Fluzone [...] = 0.6 oz pur e alcohol) infreq. Food Insecurity Answer Date Recorded Within the past 12 months, y ou worried that your food would run out before you got money to buy more. Never true 05/20/2022 Within the past 12 months, t he food you bought just didn't last and you didn't have money to get more. Never true 05/20/2022 Sex Assigned at Date Recorded Female 11/04/2021 11:13 PM EDT Job Start Date Occupation Industry Not on file Not on file Not on file documented as of this encounter Last Filed Vital Signs Vital Sign Reading Time Taken Comments Blood Pressure 136/70 11/28/2022 12:58 PM EDT Pulse 66 11/28/2022 12:58 PM EDT Temperature 35.9 C (96.7 F) 11/28/2022 12:58 PM E DT Respiratory Rate 18 11/28/2022 12:58 PM EDT Oxygen Saturation - - Inhaled Oxygen Concentration - - Weight 67.2 kg (148 lb 3.2 oz) 11/28/2022 12:58 PM EDT Height - - Body Mass Index 24.69 02/13/2022 11:01 AM EST documented in this encounter Progress Notes * Paul De La Rosa, DO - 11/28/2022 1:15 PM EDT Subjective: Holli Moreno is a 77 year old female. Chief Complaint Patient presents with Medication Administration Flu and/or Pneumo Inj HPI: Pt here in follow-up. We adjusted her thyroid medication,. Did not feel different utside of possible effect from Coreg. Coreg put on for BP. Sometimes feels tired after taking it. Also depends on how well she slept. BP seems all over. She feels like her BP was stable for a long time until last year. HAs been up since. She also feels like she is losing weight over time. Now losing without trying. She feels that she was losing weight before then. No burning with urination, F or C. No change in bowels. No night sweats. PMHx, meds, and allergies reviewed Patient Active Problem List Diagnosis Code ADVANCE DIRECTIVE INFORMATION Dyslipidemia, goal LDL below 130 E78.5 HTN, goal below 140/90 I10 History of renal stone Z87.442 Acquired hypothyroidism E03.9 Primary open-angle glaucoma, bilateral, moderate stage H40.1132 Benign hypertension with stage 3b chronic kidney disease (HCC) I12.9, N18.32 Current Outpatient Medications Medication Sig Dispense Refill ASPIRIN 81 MG OR TABS one tab by mouth daily 34 5 FLUORIDE TOOTHPASTE DT PSTE 0 B Ruxzamn-T-Bppgb Acid Oral Tablet Take by mouth daily. LORazepam 0.5 MG Oral Tablet (Ativan) 1 Tablet. Lisinopril 40 MG Oral Tablet TAKE ONE TABLET BY MOUTH IN THE MORNING 90 Tablet 3 Levothyroxine Sodium 112 MCG Oral Tablet (Levoxyl) Take 1 Tablet by mouth in the morning. (at least30 min prior to breakfast or other meds). 90 Tablet 3 Latanoprost 0.005 % Ophthalmic Solution (Xalatan) instill one drop into both eyes at bedtime for 30days 2.5 mL 11 Carvedilol 12.5 MG Oral Tablet (Coreg) Take 1 Tablet by mouth in the morning and 1 Tablet before bedtime. 180 Tablet 3 Atorvastatin Calcium 20 MG Oral Tablet (Lipitor) TAKE ONE TABLET BY MOUTH IN THE MORNING 90 Tablet 3 Vitamin D 25 MCG (1000 UT) Oral Tablet Take 1 Tablet by mouth in the morning. hydroCHLOROthiazide 12.5 MG Oral Capsule (Hydrodiuril) TAKE 1 CAPSULE BY MOUTH IN THE MORNING. 90 Capsule 3 Latanoprost 0.005 % Ophthalmic Solution (Xalatan) instill 1 drop into both eyes at bedtime 7.5 mL 3 No current facility-administered medications for this visit. Review of patient's allergies indicates: Allergen Reactions Penicillins Nausea/vomiting Other reaction(s): HX ASTHMA, MADE ASTHMA LIKE SYMPTOMS WORSE OBJECTIVE: BP 154/76 | Pulse 66 | Temp 35.9 C (96.7 F) (Tympanic) | Resp 18 | Wt 67.2 kg (148 lb 3.2 oz) |LMP 07/02/2000 | BMI 24.69 kg/m | BSA 1.75 m Estimated body mass index is 24.69 kg/m as calculated from the following: Height as of 02/13/22: 1.65 m (5' 4.96"). Weight as of this encounter: 67.2 kg (148 lb 3.2 oz). BP Readings from Last 3 Encounters: 11/28/22 154/76 09/27/22 135/68 05/22/22 136/82 Wt Readings from Last 3 Encounters: 11/28/22 67.2 kg (148 lb 3.2 oz) 09/27/22 68 kg (150 lb) 05/22/22 71 kg (156 lb 9.6 oz) ROS: Negative except for above PHYSICAL EXAM: General: alert, healthy, and no distress Head: Normocephalic, No masses, lesions, tenderness or abnormalities ASSESSMENT/Plan Essential hypertension with goal blood pressure less than 140/90 (Primary) - Lisinopril 40 MG Oral Tablet; Take 1 Tablet by mouth in the morning. TAKE ONE TABLET BY MOUTH IN THE MORNING. Need for prophylactic vaccination and inoculation against influenza - INFLUENZA VACC, QUAD, HIGH DOSE (FLUZONE HD) Dyslipidemia, goal LDL below 130 Acquired hypothyroidism Benign hypertension with stage 3b chronic kidney disease (HCC) Other orders - Levothyroxine Sodium 112 MCG Oral Tablet (Levoxyl); Take 1 Tablet by mouth in the morning. (at least 30 min prior to breakfast or other meds). Multiple chronic stable problems discussed. Continue Levothyroxine at 112 mcg. The above was discussed and understanding was expressed. Paul De La Rosa DO * Paulette Stephens LPN - 11/28/2022 12:59 PM EDT PRE - ADMINISTRATION DOCUMENTATION Are you experiencing any cold symptoms or fever? No Have you had Guillain-[place] Syndrome (an illness that causes paralysis) within the last 6 weeks? No Have you had the flu shot in the past? YES Have you ever had a reaction to the flu shot? No Paulette Stephens LPN, 11/28/2022 12:59 PM Immunization Administration Documentation Time Out Procedure Performed: Yes Patient Identified (Ask Name/Date of ): Yes Does the patient have a fever greater than 101 degrees today? No Patient allergic to latex? No [facility] Stock: No Immunization(s) verified: Yes, Immunization Name: Flu, VIS Sheet(s) given: Yes Verified Side and Site: Yes Verified Shot(s) with Parent(s)/Patient: Yes documented in this encounter Nursing Notes * Paulette Stephens LPN - 11/28/2022 12:57 PM EDT Holli Hunt Tiffanie presents for 6 month recheck. Medications & HM reviewed. Patient brought in a list of BP readings. documented in this encounter Plan of Treatment Upcoming Encounters Date Type Specialty Care Team Description 03/30/2023 Office Visit Nephrology Héctor Stevens MD [address] [place] [address] 07/02/2023 Office Visit Family Medicine Paul De La Rosa DO [address] [facility] [place] [address] Scheduled Procedures Name Priority Associated Diagnoses Date/Ti me COLONOSCOPY FLEXIBLE PROXIMA L DIAGNOSTIC Recall Special screening for malignant neoplasms, colon Health Maintenance Due Date Last Done Comments Depression Screening 02/13/2023 02/13/2022 Albumin/Creatinine Ratio 05/24/20232 023, 01/06/2019, 03/28/2018, Additional history exists GFR 05/24/2023 11/23/2022, 05/10, 03/24/2022, Additional history exists CKD HGB USE SMARTSET 73986 11/24/202311/23, 11/23/2022, 03/24/2022, Additional history exists CKD PHOS USE SMARTSET 93335 11/24/202311/10, 03/24/2022, 07/11/2021, Additional history exists TSH 11/24/2023 11/23/2022, 05/10, 11/02/2021, Additional history exists DTaP,Tdap,and Td Vaccines (4 - Td or Tdap) 11/08/2031 11/07/2021, 07/29/2011, 07/31/2006, Additional history exists Pneumococcal Vaccine: 65+ Years Completed 05/27/2015, 11/19/2013, 02/14/2007 Zoster Vaccines Completed 11/10/2019, 07/10, 09/14/2008 COVID-19 Vaccine Completed 08/25/2022, , 08/01/2021, Additional history exists Influenza Vaccine (FLU shot) Completed , 01/16/2022, [...] Not on filedocumented as of this encounter Visit Diagnoses Diagnosis Essential hypertension with goal blood pressure less than 140/90- Primary Need for prophylactic vaccination and inoculation against influenza Dyslipidemia, goal LDL below 130 Other and unspecified hyperlipidemia Acquired hypothyroidism Unspecified hypothyroidism Benign hypertension with stage 3b chronic kidney disease (HCC) documented in this encounter Advance Directives Documents on File Type Date Recorded Patient Liberal Arts Dean Expl anation Power of Quill Stripper 07/31/2006 Care Teams Freezer Machine Operator Relationship Specialty Start Date End Date Paul De La Rosa, DO [address] [place] [address] PCP - General Family Medicine 09/26/16 documented as of this encounter
--- OUTSIDE RECORDS SUMMARY | 2023-05-16 06:53 | External Medical Summary | Summary of Care ---
Author Name Unknown Organization [facility] Address [address] [place] [address] Phone [phone] Care Team Providers Care Ultrasonic Cleaner Name Role Phone Paul De La Rosa DO Primary Care Provider [phone] Reason for Visit * Reason Comments Outpatient Testing Encounter Details Date Type Department Care Team (Late st Contact Info) Description 03/23/2023 10:30 AM EST Laboratory [facility] [address] [place] [id number] [place], [address] [place] [address] Hyponatremia Allergies Active Allergy Reactions Criticality Noted Date [...] dental caries 0 01/18/2009 Activ e B Fwhjlwy-V-Tgapo Acid Oral Tablet Take by mouth daily. [...] on file documented as of this encounter Plan of Treatment Upcoming Encounters Date Type Department Care Team (Late st Contact Info) Description 03/30/2023 2:40 PM EST Office Visit Nephrology, [facility] [address] [facility] [place] [address] Héctor Stevens MD [address] [facility] [place] [address] 07/02/2023 12:40 PM EDT Office Visit Family Practice [facility] [place] [address] [facility] [place] [address] Paul De La Rosa DO [address] [facility] [place] [address] Pending Results Name Type Priority Associated Diagnoses Date /Time RENAL FUNCTION PANEL Lab Routine Hyponatremia 03/23/2023 10:11 AM EST Scheduled Procedures Name Priority Associated Diagnoses Date/Ti me COLONOSCOPY FLEXIBLE PROXIMA L DIAGNOSTIC Recall Special screening for malignant neoplasms, colon Health Maintenance Due Date Last Done Comments COVID-19 Vaccine ( season) 2022 08/25/2022, 12/01/2021, 08/01/2021, Additional history exists Depression Screening 02/13/2023 02/13/2022 Albumin/Creatinine Ratio 05/24/202305/23/2 023, 01/06/2019, 03/28/2018, Additional history exists GFR 05/24/2023 11/23/2022, 05/10, 03/24/2022, Additional history exists CKD HGB USE SMARTSET 19887 11/24/202311/23, 11/23/2022, 03/24/2022, Additional history exists CKD PHOS USE SMARTSET 38761 11/24/202311/10, 03/24/2022, 07/11/2021, Additional history exists TSH [...] as of this encounter Visit Diagnoses Diagnosis Hyponatremia Hyposmolality and/or hyponatremia documented in this encounter Advance Directives Documents on File Type Date Recorded 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
--- OUTSIDE RECORDS SUMMARY | 2023-05-16 06:53 | External Medical Summary | Summary of Care ---
Author Name Unknown Organization [facility] Address [address] [place] [address] Phone [phone] Care Team Providers Care Unit Receptionist Name Role Phone Paul De La Rosa DO Primary Care Provider [phone] Reason for Visit * Reason Onset Date Comments Adult Annual Wellness Visit, Subsequent Visit Encounter Details Date Type Department Care Team (Late st Contact Info) Description 03/08/2023 Telephone Ancillary [facility] [address] [facility] [place] [address] Stacey Chawla, JEANINE Adult Annual Wellness Visit, Subsequent Visit Allergies Active Allergy Reactions Criticality Noted Date Comments Penicillins Nausea/vomiting High 07/31/2006 Other reaction(s): HX ASTHMA, MADE ASTHMA LIKE SYMPTOMS WORSE documented as of this encounter (statuses as of 03/26/2023) Medications Medication Sig Dispensed Refills Start Date End Date Status ASPIRIN 81 MG OR TABS one tab by mouth daily 34 5 04/07/2004 Active FLUORIDE TOOTHPASTE DT PSTEIndications:Arr ested dental caries 0 01/18/2009 Activ e B Cnujiyg-H-Fbnso Acid Oral Tablet Take by mouth daily. [...] as of this encounter (statuses as of 03/26/2023) Active Problems Problem Noted Date Diagnosed Date [...] as of this encounter (statuses as of 03/26/2023) Resolved Problems Problem Noted Date Diagnosed Date [...] as of this encounter (statuses as of 03/26/2023) Immunizations Name Administration Dates Next Due COVID-19 [...] 03/30/2023 2:40 PM EST Office Visit Nephrology, [facility] [address] [facility] [place] [address] Héctor Stevens MD [address] [facility] [place] [address] 07/02/2023 12:40 PM EDT Office Visit Family Practice [facility] [place] [address] [facility] [place] [address] Paul De La Rosa, DO [address] [facility] [place] [address] Scheduled Procedures Name Priority Associated Diagnoses Date/Ti me COLONOSCOPY FLEXIBLE PROXIMA L DIAGNOSTIC Recall Special screening for malignant neoplasms, colon Health Maintenance Due Date Last Done Comments COVID-19 Vaccine ( season) 2022 08/25/2022, 12/01/2021, 08/01/2021, Additional history exists Depression Screening 02/13/2023 02/13/2022 Albumin/Creatinine Ratio 05/24/202305/23/2 023, 01/06/2019, 03/28/2018, Additional history exists GFR 09/21/2023 03/23/2023, 11/10, 05/23/2022, Additional history exists CKD HGB USE SMARTSET 78152 11/24/202311/23, 11/23/2022, 03/24/2022, Additional history exists TSH 11/24/2023 11/23/2022, 05/10, 11/02/2021, Additional history exists CKD PHOS USE SMARTSET 81956 03/23/202403/12, 11/23/2022, 03/24/2022, Additional history exists DTaP,Tdap,and [...] Documents on File Type Date Recorded 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
--- OUTSIDE RECORDS SUMMARY | 2023-05-16 06:53 | External Medical Summary | Summary of Care ---
Author Name Unknown Organization [facility] Address [address] [place] [address] Phone [phone] Care Team Providers Care Chiropractic Neurologist Name Role Phone Paul De La Rosa DO Primary Care Provider [phone] Reason for Visit * Reason Onset Date Comments Test Results 11/24/2022 Encounter Details Date Type Department Care Team Description 11/24/2022 Telephone [facility] [address] [place] [address] Héctor Stevens MD [address] [facility] [place] [address] Test Results Allergies Active Allergy Reactions Severity Noted Date Comments Penicillins Nausea/vomiting High 07/31/2006 Other reaction(s): HX ASTHMA, MADE ASTHMA LIKE SYMPTOMS WORSE documented as of this encounter (statuses as of 11/24/2022) Medications Medication Sig Dispensed Refills Start Date End Date Status ASPIRIN 81 MG OR TABS one tab by mouth daily 34 5 04/07/2004 Active FLUORIDE TOOTHPASTE DT PSTEIndications:Arr ested dental caries 0 01/18/2009 Activ e latanoprost (XALATAN) 0.005 % ophthalmic solutionIndications :Glaucoma of both eyes, unspecified glaucoma type 1 Drop at bedtime. 2.5 mL 12 12/13/2016 Active B Vbietux-F-Fgotb Acid Oral Tablet Take by mouth daily. 0 05/14/2020 Active LORazepam 0.5 MG Oral Tablet (Ativan) 1 Tablet. 0 09/13/2020 Active Lisinopril 40 MG Oral TabletIndications:E ssential hypertension with goal blood pressure less than 140/90 TAKE ONE TABLET BY MOUTH IN THE MORNING 90 Tablet 3 11/07/2021 01/08/2023 Active Vitamin D 25 MCG (1000 UT) Oral Tablet Take 1 Tablet by mouth in the morning. 0 Active Levothyroxine Sodium 112 MCG Oral Tablet (Levoxyl) Take 1 Tablet by mouth in the morning. (at least 30 min prior to breakfast or other meds). 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 01 CKD (chronic kidney disease) stage 3, GFR 30-59 ml/min 04/25/2018 Overview: non functioning right kidney documented as of this encounter (statuses as of 11/24/2022) Immunizations Name Administration Dates Next Due COVID-19 mRNA, LNP-s, No Pre serve, 2-Dose Series (Moderna) 06/19/2020,05/17/2020 COVID-19, mRNA, LNP-s, PF, B ooster, 100mcg/0.5mg (Moderna) 08/01/2021,01/25/2021 Covid-19, Mrna, Lnp-s, Pf, B ivalent, 30 Mcg, IM, 12 yrs and above ([employer]) 12/01/2021 Pneumococcal Conjugate Vacc, 13 Valent (Prevnar) 05/27/2015 Pneumococcal Polysaccharide PPV23 (Pneumovax) 11/19/2013,02/14/2007 Season Influenza, Quad, PF, Adjuvanted, 65+ Yrs, IM (FLUAD) 01/20/2020 Seasonal Influenza, PF, 6 mo ns & Above, IM , (Flulaval) 12/31/2017,12/13/2016 Seasonal Influenza, Quadriva lent Hd (Fluzone Hd) 01/16/2022,02/22/2021 Seasonal Influenza, Quadriva lent, No Preserve, IM [...] encounter Miscellaneous Notes * Telephone Encounter - Celestina Barahona RN - 11/24/2022 12:21 PM EDT ----- Message from Héctor Stevens MD sent at 11/24/2022 10:38 AM EDT ----- Kidney function and urine test stable. Serum sodium slightly low but within the range. documented in this encounter Plan of Treatment Upcoming Encounters Date Type Specialty Care Team Description 11/28/2022 Office Visit Family Medicine Paul De La Rosa DO [address] [facility] [place] [address] 03/30/2023 Office Visit Nephrology Héctor Stevens MD [address] [facility] [place] [address] Scheduled Procedures Name Priority Associated Diagnoses Date/Ti me COLONOSCOPY FLEXIBLE PROXIMA L DIAGNOSTIC Recall Special screening for malignant neoplasms, colon Health Maintenance Due Date Last Done Comments Influenza Vaccine (FLU shot) (#1) 2022 01/16/2022, 02/22/2021, 01/20/2020, Additional history exists Depression Screening 02/13/2023 02/13/2022 Albumin/Creatinine Ratio 05/24/202305/23/2 023, 01/06/2019, 03/28/2018, Additional history exists GFR 05/24/2023 11/23/2022, 05/10, 03/24/2022, Additional history exists CKD HGB USE SMARTSET 17722 11/24/202311/23, 11/23/2022, 03/24/2022, Additional history exists CKD PHOS USE SMARTSET 29235 11/24/202311/10, 03/24/2022, 07/11/2021, Additional history exists TSH 11/24/2023 11/23/2022, 05/10, 11/02/2021, Additional history exists DTaP,Tdap,and Td Vaccines (4 - Td or Tdap) 11/08/2031 11/07/2021, 07/29/2011, 07/31/2006, Additional history exists Pneumococcal Vaccine: 65+ Years Completed 05/27/2015, 11/19/2013, 02/14/2007 Zoster Vaccines Completed 11/10/2019, 07/10, 09/14/2008 COVID-19 Vaccine Completed 12/01/2021, , 01/25/2021, Additional history exists GARDASIL-HPV IMMUNIZATION SERIES Aged [...] Documents on File Type Date Recorded Patient It Sales Representative Expl anation Power of Gasoline Tester 07/31/2006 Care Teams Chiropractic Neurologist Relationship Specialty Start Date End Date Paul De La Rosa, DO [address] [facility] [place] [address] PCP - General Family Medicine 09/26/16 documented as of this encounter
--- OUTSIDE RECORDS SUMMARY | 2023-05-16 06:53 | External Medical Summary | Summary of Care ---
Author Name Unknown Organization [facility] Address [address] [place] [address] Phone [phone] Care Team Providers Care Medication Care Manager Name Role Phone Garland De La Rosae Bronson ROBIN Primary Care Provider [phone] Reason for Visit * Reason Comments Chronic Kidney Disease (CKD) Encounter Details Date Type Department Care Team (Late st Contact Info) Description 03/30/2023 2:40 PM EST Office Visit Nephrology, [facility] [address] [facility] [place] [address] Héctor Stevens MD [address] [facility] [place] [address] Hyponatremia*; Benign hypertension with stage 3b chronic kidney disease (HCC); HTN, goal below 140/90; History of renal stone Allergies Active Allergy Reactions Criticality Noted Date Comments Penicillins Nausea/vomiting High 07/31/2006 Other reaction(s): HX ASTHMA, MADE ASTHMA LIKE SYMPTOMS WORSE documented as of this encounter (statuses as of 03/30/2023) Medications Medication Sig Dispensed Refills Start Date End Date Status ASPIRIN 81 MG OR TABS one tab by mouth daily 34 5 04/07/2004 Active FLUORIDE TOOTHPASTE DT PSTEIndications:Arr ested dental caries 0 01/18/2009 Activ e B Nodccds-E-Frhne Acid Oral Tablet Take by mouth daily. [...] as of this encounter (statuses as of 03/30/2023) Active Problems Problem Noted Date Diagnosed Date [...] as of this encounter (statuses as of 03/30/2023) Resolved Problems Problem Noted Date Diagnosed Date [...] as of this encounter (statuses as of 03/30/2023) Immunizations Name Administration Dates Next Due COVID-19 [...] Date Smoking Tobacco: Never Smokeless Tobacco: Never Tobacco Cessation:Counseling Given: Not Answered Alcohol Use Standard Drinks/Week Comments Yes 0 [...] Sign Reading Time Taken Comments Blood Pressure 167/87 03/30/2023 2:36 PM EST Pulse 57 03/30/2023 2:36 PM EST Temperature 36.6 C (97.8 F) 03/30/2023 2:33 PM ES T Respiratory Rate 18 03/30/2023 2:33 PM EST Oxygen Saturation 98% 03/30/2023 2:33 PM EST Inhaled Oxygen Concentration - - Weight 65.3 kg (143 lb 14.4 oz) 03/30/2023 2:33 PM EST Height - - Body Mass Index 23.97 02/13/2022 11:01 AM EST documented in this encounter Progress Notes * Héctor Stevens MD - 03/30/2023 2:32 PM EST Chief Complaint Patient presents with Status Check CKD 3, Htn, HPI: Patient is a pleasant 78 year old female with CKD stage G3b-A1 without proteinuria secondary to advanced age, HTN, and functionally solitary kidney due to renal stones here for follow up. With HTN for about 16 years. No recent stones and patient drinks a significant amount of water. No tobacco. No Diabetes. No myeloma. No NSAIDs. Since last visit ---she had 24 hour ambulatory blood pressure monitoring done and blood pressure was good after switching over to carvedilol. She feels very tired after carvedilol but does feellike it is working. Denies any infections, procedures, or hospitalizations. Patient continues to drink plenty of water. No recent kidney stones. Denies any nausea, vomiting, SOB, chest pain, edema, confusion or metallic taste to foods. No new meds. PMH: Patient Active Problem List Diagnosis Code ADVANCE [...] 5 FLUORIDE TOOTHPASTE DT PSTE 0 B Nlzwqad-F-Yiaec Acid Oral Tablet Take by mouth daily. LORazepam 0.5 MG Oral Tablet (Ativan) 1 Tablet. Vitamin D 25 MCG (1000 UT) Oral [...] 1 Tablet before bedtime. 180 Tablet 3 Latanoprost 0.005 % Ophthalmic Solution (Xalatan) instill 1 drop into both eyes at bedtime 7.5 mL 3 Atorvastatin Calcium 20 MG Oral Tablet (Lipitor) TAKE ONE TABLET BY MOUTH IN THE MORNING 90 Tablet 3 Levothyroxine Sodium 112 MCG Oral Tablet (Levoxyl) Take 1 Tablet by mouth in the morning. (at least30 min prior to breakfast or other meds). 90 Tablet 3 Lisinopril 40 MG Oral Tablet Take 1 Tablet by mouth in the morning. TAKE ONE TABLET BY MOUTH IN THEMORNING. 90 Tablet 3 No current facility-administered medications for this visit. Past Medical History: Diagnosis Date Benign colon polyp 07/31/14 hyperplastic repeat 10 years Calculus of kidney 05/09/2007 Carcinoma in situ of cervix uteri Dyslipidemia, goal LDL below 100 02/25/2009 Per Lipid Taxonomy. Endometrial cancer (HCC) 07/2000 Charis with radiation HTN, goal below 130/80 04/08/2009 Per HTN Taxonomy. 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, grade 3 Past Surgical History: Procedure Laterality Date BREAST LESION,OTHER,EXCISION Right 04/07/2015 Papilloma COLONOSCOPY, DIAGNOSTIC (RECTUM) 07/31/2014 hyperplastic polyp, diverticulosis, repeat 10 yrs/COLONOSCOPY FLEXIBLE PROXIMAL DIAGNOSTIC performed by Brad Robins MD at ENDOSCOPY [facility] COLONOSCOPY, REMOVE LESION 06/14 hyperplastic polyps, repeat 2014 COLORECTAL CANCER SCREEN;W/FLE 09/06/98 WNL CYSTOSCOPY 06-14-07 CYSTOSCOPY 07-23-07 stent removal CYSTOSCOPY 12-31-07 STENT REMOVAL CYSTOSCOPY/INSERTION OF STENT 12-04-2007 CYSTOURETERO W/LITHOTRIPSY 12-04-2007 EXC BREAST LESION RADMARK Right 04/07/2015 04/07/2015 right breast EXCISION OF BREAST LESION RADIOLOGICAL MARKER performed by Lynnette Doshi MD at OR [facility] dx: breast , right 10:00, needle localization excision negative for carcinoma, focal intraductal papilloma with atypia, < 1 mm from superior margin, fibroadenomatoid change and columnar cell change , microcalcifications identified FRAGMENT KIDNEY STONE BY SHOCK WAVE 07-12-07 FRAGMENT KIDNEY STONE BY SHOCK WAVE 12-04-07 ESWL (Extracorporeal Shock Wave Lithotripsy) FRAGMENT KIDNEY STONE BY SHOCK WAVE 12/13/2007 INFORMATION 2004 vaginal biopsy, glandular metaplasia - neg bx INSERT URETERAL SUPPORT 06-14-07 Ureteral Stent Placement MAMMOGRAM - 1 BREAST 11/29/07 birad code 2, benign findings, yearly mammo. MAG views MAMMOGRAM - BILATERAL 10/20/03 birad code 2 MAMMOGRAM - BILATERAL 11/18/04 birad code 2 MAMMOGRAM - BILATERAL 11/21/05 birad code 2 MAMMOGRAM - BILATERAL 11/22/06 birad code2 MAMMOGRAM SCREENING BILATERAL 12/15/2010 birad 2, repeat in 12mths MAMMOGRAM SCREENING-BILATERAL 11-26-07 birad code 0, MAG views requested for left upper outer quadrant calcifications. stable asymmetries. PAP SCREEN 12/21/05 RADIATION THERAPY 2000 Endometrial Cancer RADIATION THERAPY DOSE PLAN 2000 TOTAL ABD HYSTERECTOMY W/WO REMOVAL OF TUBE(S) Bilateral 07/10 CHARIS/BSO, Stage IB Grade 3 endometrial camcer Review of patient's allergies indicates: Allergen Reactions Penicillins Nausea/vomiting Other reaction(s): HX ASTHMA, MADE ASTHMA LIKE SYMPTOMS WORSE Family History Problem Relation Age of Onset Neurological Disorder Mother dementia/seizures Hypertension Father skin cancer Cancer Grandmother (Paternal) breast Breast Cancer Grandmother (Paternal) Cancer Brother bladder Cancer Brother colon/liver Other (Other) Other no ovarian cancer Family Status Relation Status Mother at age 83 old age, seizures no cancers Father at age 88 skin cancer, in fdc, pneumonia, dementia Brother at age 33 intestinal cancer Brother at age abt 60 bladder cancer at 50, back pain, recurrent cancer Maternal Grandmother at age 80s ? 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 Drug use: No Sexual activity: Never Lifestyle Physical activity: Days per week: Not on file Minutes per session: Not on file Stress: Not on file Relationships Social connections: Talks on phone: Not on file Gets together: Not on file Attends amish service: Not on file Active member of club or organization: Not on file Attends meetings of clubs or organizations: Not on file Relationship status: Not on file Intimate partner violence: Fear of current or ex partner: Not on file Emotionally abused: Not on file Physically abused: Not on file Forced sexual activity: Not on file Other Topics Concern Service No Blood Transfusions No Caffeine Concern No Occupational Exposure No Hobby Hazards No Sleep Concern No Stress Concern No Weight Concern Yes Special Diet No Back Care No Exercise Yes Comment: Yoga, walks Bike Helmet Not Asked Seat Belt Yes Self-Exams Yes Comment: breast Social History Narrative Born in [facility] Review of Systems: General: No change in weight and no fatigue Head: No significant headache and No recent significant head injury Neck: No complaint of lumps in neck and No recent swelling in thyroid area Respiratory: No cough, sputum, or hemoptysis and No shortness of breath Cardiac: No chest pain and No edema Gastrointestinal: No dysphagia, No nausea, vomiting, diarrhea, or constipation and No abdominal pain Urinary: No dysuria, No hematuria and + nocturia chronic Musculoskeletal: No joint pain or stiffness, No arthritis and No joint swelling Neurologic: No fainting or blackouts, No seizures and No tremors Skin: No rash and No itching LMP 07/02/2000 BP 167/87 (BP Site: Right Arm, BP Position: Sitting, BP Cuff Size: Regular) | Pulse 57 | Temp 36.6 C (97.8 F) | Resp 18 | Wt 65.3 kg (143 lb 14.4 oz) | LMP 07/02/2000 | SpO2 98% | BMI 23.97 kg/m | BSA 1.73 m Physical Exam: General: alert, healthy, no distress, well nourished and well developed HEENT: normocephalic, atraumatic, Supple without masses or lymphadenopathy, sclera and conjuctiva clear bl Heart: rrr Lungs: clear Abdomen: abdomen soft, non-tender and normal bowel sounds Extremities: no joint deformities, effusion, or inflammation, no edema, no clubbing Neuro Exam: alert & oriented x 3 with fluent speech, no focal motor/sensory deficits, gait normal Skin: Skin color, texture, turgor normal. No rashes or lesions NEPH-FLOW Latest Ref Rng & Units 06/02/2016 06/23/2016 12/05/2016 Bun 6 - 20 mg/dL 20 20 17 Cr 0.5 - 1.0 mg/dL 1.4 (H) 1.5 (H) 1.4 (H) eGFR >60 mL/min eGFR >60 37.6 (L) 36.4 (L) 39.0 (L) K 3.5 - 5.1 mmol/L 4.4 4.2 4.4 Hb 12.0 - 15.3 g/dL 13.4 Microalb/cr ratio <30 mg/g creat <11 NEPH-FLOW Latest Ref Rng & Units 04/03/2017 06/11/2017 10/04/2017 Bun 6 - 20 mg/dL 19 17 17 Cr 0.5 - 1.0 mg/dL 1.3 (H) 1.3 (H) 1.3 (H) eGFR >60 mL/min eGFR >60 40.9 (L) 42.8 (L) 40.1 (L) K 3.5 - 5.1 mmol/L 4.2 4.2 4.6 Hb 12.0 - 15.3 g/dL 11.8 (L) Microalb/cr ratio <30 mg/g creat <8 NEPH-FLOW Latest Ref Rng & Units 06/11/2017 10/04/2017 03/28/2018 Bun 6 - 20 mg/dL 17 17 25 (H) Cr 0.5 - 1.0 mg/dL 1.3 (H) 1.3 (H) 1.3 (H) eGFR >60 mL/min eGFR >60 42.8 (L) 40.1 (L) 41.7 (L) K 3.5 - 5.1 mmol/L 4.2 4.6 4.1 Hb 12.0 - 15.3 g/dL 11.8 (L) 12.9 Microalb/cr ratio <30 mg/g creat <8 <15 NEPH-FLOW Latest Ref Rng & Units 07/01/2018 01/06/2019 04/08/2019 Bun 6 - 20 mg/dL 19 23 (H) 20 Cr 0.5 - 1.0 mg/dL 1.2 (H) 1.3 (H) 1.4 (H) eGFR >60 mL/min eGFR >60 44.2 (L) 42.9 (L) 38.2 (L) K 3.5 - 5.1 mmol/L 4.4 4.4 4.4 Hb 12.0 - 15.3 g/dL 14.0 13.4 Microalb/cr ratio <30 mg/g creat <18 NEPH-FLOW Latest Ref Rng & Units 07/26/2020 09/01/2020 01/05/2021 Bun 6 - 20 mg/dL 17 18 17 Cr 0.5 - 1.0 mg/dL 1.2 (H) 1.2 (H) 1.1 (H) eGFR >=60 mL/min 45.5 (L) 46.5 (L) 49 (L) eGFR >60 K 3.5 - 5.1 mmol/L 4.3 4.3 4.3 Hb 12.0 - 15.3 g/dL 13.8 12.9 Pro/Cr ratio <150 mg/g 78 <114 NEPH-FLOW Latest Ref Rng & Units 09/01/2020 01/05/2021 07/11/2021 Bun 6 - 20 mg/dL 18 17 20 Cr 0.5 - 1.0 mg/dL 1.2 (H) 1.1 (H) 1.2 (H) eGFR >=60 mL/min 46.5 (L) 49 (L) 50 (L) eGFR >60 K 3.5 - 5.1 mmol/L 4.3 4.3 4.2 Hb 12.0 - 15.3 g/dL 12.9 12.9 Pro/Cr ratio <150 mg/g <114 69 Microalb/cr ratio <30 mg/g creat \\Hyponatremia (Primary) Chronic borderline hyponatremia with a serum sodium in the 130 range. But given her history of kidney stone with single functional kidney I do not want to take chance with recurrence of kidney stone.So we will continue hydrochlorothiazide and plenty of hydration despite borderline low sodium Benign hypertension with stage 3b chronic kidney disease (HCC) CKD stage G3b-A1 without proteinuria secondary to advanced age, HTN, and functionally solitary kidney due to renal stones. CT showed multiple right obstructing calculi with an unremarkable left kidney. Creatinine remains within baseline at 0.9---1.2 No tobacco. No Myeloma. No DM. No NSAIDs. Labs done was reviewed and discussed with the patient in detail. HTN, goal below 140/90 Blood pressure is not at goal. She is on lisinopril hydrochlorothiazide and carvedilol. She claims carvedilol is very effective but also makes her very sleepy and tired. We discussed about need for another blood pressure medicine to control---I do not want to raise thehydrochlorothiazide because of low borderline sodium, heart rate is already in the 50s so hard to raise carvedilol, lisinopril is already full-dose. She also does have some trace edema. She wants to follow her blood pressure for now. History of renal stone History of kidney stone in the past which actually caused permanent functional damage to 1 kidney. Fortunately has not had any major issues for the last few years on the current regimen of hydrochlorothiazide and push oral hydration. Previous uro risk study is did not show any abnormalities anyway. She does follow Low oxalate diet though. Follow Up: Return in about 6 months (around 09/28/2023) for Clinic Visit. | For: Clinic Visit Héctor Stevens MD documented in this encounter Nursing Notes * Celestina Barahona, RN - 03/30/2023 2:35 PM EST Follow up visit today. States she is taking medications as ordered and did take them today. She states she is worked up getting around in the snow. documented in this encounter Plan of Treatment Upcoming Encounters Date Type Department Care Team (Late st Contact Info) Description 07/02/2023 12:40 PM EDT Office Visit Family Practice [facility] [place] [address] [facility] [place] [address] Paul De La Rosa DO [address] [facility] [place] [address] 12/21/2023 11:40 AM EDT Office Visit Nephrology, [facility] [address] [place] [address] Héctor Stevens MD [address] [facility] [place] [address] Scheduled Procedures Name Priority Associated Diagnoses Date/Ti me COLONOSCOPY FLEXIBLE PROXIMA L DIAGNOSTIC Recall Special screening for malignant neoplasms, colon Health Maintenance Due Date Last Done Comments COVID-19 Vaccine ( season) 2022 08/25/2022, 12/01/2021, 08/01/2021, Additional history exists Depression Screening 02/13/2023 02/13/2022 Albumin/Creatinine Ratio 05/24/202305/23/2 023, 01/06/2019, 03/28/2018, Additional history exists GFR 09/21/2023 03/23/2023, 11/10, 05/23/2022, Additional history exists CKD HGB USE SMARTSET 11977 11/24/202311/23, 11/23/2022, 03/24/2022, Additional history exists TSH 11/24/2023 11/23/2022, 05/10, 11/02/2021, Additional history exists CKD PHOS USE SMARTSET 63435 03/23/202403/12, 11/23/2022, 03/24/2022, Additional history exists DTaP,Tdap,and [...] as of this encounter Visit Diagnoses Diagnosis Hyponatremia- Primary Hyposmolality and/or hyponatremia Benign hypertension with stage 3b chronic kidney disease (HCC) HTN, goal below 140/90 Unspecified essential hypertension History of renal stone Personal history of urinary calculi documented in this encounter Advance Directives Documents on File Type Date Recorded Patient Behavioral Analyst Expl anation Power of Glove Former 07/31/2006 Care Teams Medication Care Manager Relationship Specialty Start Date End Date Paul De La Rosa DO [address] [place] [address] PCP - General Family Medicine 09/26/16 documented as of this encounter"
--- OUTSIDE RECORDS SUMMARY | 2023-05-16 06:53 | External Medical Summary | Summary of Care ---
Author Name Unknown Organization [facility] Address [address] [place] [address] Phone [phone] Care Team Providers Care Fluoroscope Operator Name Role Phone Paul De La Rosa DO Primary Care Provider [phone] Reason for Visit * Reason Onset Date Comments Adult Annual Wellness Visit, Subsequent Visit Encounter Details Date Type Department Care Team (Late st Contact Info) Description 03/08/2023 Telephone Ancillary [facility] [address] [facility] [place] [address] Stacey Chawla, JEANINE Adult Annual Wellness Visit, Subsequent Visit Allergies Active Allergy Reactions Criticality Noted Date Comments Penicillins Nausea/vomiting High 07/31/2006 Other reaction(s): HX ASTHMA, MADE ASTHMA LIKE SYMPTOMS WORSE documented as of this encounter (statuses as of 03/08/2023) Medications Medication Sig Dispensed Refills Start Date End Date Status ASPIRIN 81 MG OR TABS one tab by mouth daily 34 5 04/07/2004 Active FLUORIDE TOOTHPASTE DT PSTEIndications:Arr ested dental caries 0 01/18/2009 Activ e B Zaxpujf-E-Xzibw Acid Oral Tablet Take by mouth daily. [...] as of this encounter (statuses as of 03/08/2023) Active Problems Problem Noted Date Diagnosed Date [...] as of this encounter (statuses as of 03/08/2023) Resolved Problems Problem Noted Date Diagnosed Date [...] as of this encounter (statuses as of 03/08/2023) Immunizations Name Administration Dates Next Due COVID-19 [...] 03/30/2023 2:40 PM EST Office Visit Nephrology, [facility] [address] [facility] [place] [address] Héctor Stevens MD [address] [facility] [place] [address] 07/02/2023 12:40 PM EDT Office Visit Family Practice [facility] [place] [address] [facility] [place] [address] Paul De La Rosa, DO [address] [facility] [place] [address] Scheduled Procedures Name Priority Associated Diagnoses Date/Ti me COLONOSCOPY FLEXIBLE PROXIMA L DIAGNOSTIC Recall Special screening for malignant neoplasms, colon Health Maintenance Due Date Last Done Comments COVID-19 Vaccine ( season) 2022 08/25/2022, 12/01/2021, 08/01/2021, Additional history exists Depression Screening 02/13/2023 02/13/2022 Albumin/Creatinine Ratio 05/24/20232 023, 01/06/2019, 03/28/2018, Additional history exists GFR 05/24/2023 11/23/2022, 05/10, 03/24/2022, Additional history exists CKD HGB USE SMARTSET 10924 11/24/202311/23, 11/23/2022, 03/24/2022, Additional history exists CKD PHOS USE SMARTSET 93295 11/24/202311/10, 03/24/2022, 07/11/2021, Additional history exists TSH [...] Documents on File Type Date Recorded Patient Driver Messenger Expl anation Power of Block Cableman 07/31/2006 Care Teams Fluoroscope Operator Relationship Specialty Start Date End Date Paul De La Rosa DO [address] [place] [address] PCP - General Family Medicine 09/26/16 documented as of this encounter
--- OUTSIDE RECORDS SUMMARY | 2023-05-16 06:53 | External Medical Summary ---
Author Name Unknown Address Unknown Organization K09[facility] [place] [address] Laboratory Report Ordering Provider Test Date Status CANDELARIA MORROW 03/23/2023 10:11:13 Final Observation Date Value Abnormality Reference (Units ) Status BUN 03/23/2023 10:11:13 19 6-20 (mg/dL) Final Creatinine 03/23/2023 10:11:13 0.9 0.5-1.0 (mg/dL) Final Glomerular filtration rate/1.73 sq M.predicted [Volume Rate/Area] in Serum, Plasma or Blood by Creatinine-based formula (CKD-EPI) 03/23/2023 10:11:13 62 >=60 (mL/min) Final eGFR is calculated based on the CKD-EPI 2020 equation SODIUM 03/23/2023 10:11:13 133 Below low normal 135 -146 (mmol/L) Final Potassium 03/23/2023 10:11:13 4.5 3.5-5.1 (m mol/L) Final Cl 03/23/2023 10:11:13 96 Below low normal 98- 107 (mmol/L) Final CO2 03/23/2023 10:11:13 27 22-32 (mmo l/L) Final Anion gap 03/23/2023 10:11:13 10 7-15 (mmol /L) Final Glucose 03/23/2023 10:11:13 92 70-120 (mg /dL) Final Calcium 03/23/2023 10:11:13 10.1 8.4-10.2 ( mg/dL) Final Albumin 03/23/2023 10:11:13 4.2 3.8-5.0 (g /dL) Final Phosphate 03/23/2023 10:11:13 3.6 2.5-4.8 (m g/dL) Final Performing Location [facility] [place] [address]
--- OUTSIDE RECORDS SUMMARY | 2023-05-16 06:53 | External Medical Summary | Summary of Care ---
Author Name Unknown Organization [facility] Address [address] [place] [address] Phone [phone] Care Team Providers Care Bridge Club Manager Name Role Phone Paul De La Roas DO Primary Care Provider [phone] Reason for Visit * Reason Onset Date Comments Adult Annual Wellness Visit, Subsequent Visit Encounter Details Date Type Department Care Team (Late st Contact Info) Description 03/08/2023 Telephone Ancillary [facility] [address] [facility] [place] [address] Stacey Chawla, JEANINE Adult Annual Wellness Visit, Subsequent Visit Allergies Active Allergy Reactions Criticality Noted Date Comments Penicillins Nausea/vomiting High 07/31/2006 Other reaction(s): HX ASTHMA, MADE ASTHMA LIKE SYMPTOMS WORSE documented as of this encounter (statuses as of 03/20/2023) Medications Medication Sig Dispensed Refills Start Date End Date Status ASPIRIN 81 MG OR TABS one tab by mouth daily 34 5 04/07/2004 Active FLUORIDE TOOTHPASTE DT PSTEIndications:Arr ested dental caries 0 01/18/2009 Activ e B Lwokdas-I-Egmyk Acid Oral Tablet Take by mouth daily. [...] as of this encounter (statuses as of 03/20/2023) Active Problems Problem Noted Date Diagnosed Date [...] as of this encounter (statuses as of 03/20/2023) Resolved Problems Problem Noted Date Diagnosed Date [...] as of this encounter (statuses as of 03/20/2023) Immunizations Name Administration Dates Next Due COVID-19 [...] 03/30/2023 2:40 PM EST Office Visit Nephrology, [facility] [address] [facility] [place] [address] Héctor Stevens MD [address] [facility] [place] [address] 07/02/2023 12:40 PM EDT Office Visit Family Practice [facility] [place] [address] [facility] [place] [address] Paul De La Rosa, DO [address] [facility] [place] [address] Scheduled Procedures Name Priority Associated Diagnoses Date/Ti me COLONOSCOPY FLEXIBLE PROXIMA L DIAGNOSTIC Recall Special screening for malignant neoplasms, colon Health Maintenance Due Date Last Done Comments COVID-19 Vaccine ( season) 2022 08/25/2022, 12/01/2021, 08/01/2021, Additional history exists Depression Screening 02/13/2023 02/13/2022 Albumin/Creatinine Ratio 05/24/20232 023, 01/06/2019, 03/28/2018, Additional history exists GFR 05/24/2023 11/23/2022, 05/10, 03/24/2022, Additional history exists CKD HGB USE SMARTSET 56569 11/24/202311/23, 11/23/2022, 03/24/2022, Additional history exists CKD PHOS USE SMARTSET 25031 11/24/202311/10, 03/24/2022, 07/11/2021, Additional history exists TSH [...] Documents on File Type Date Recorded Patient Brickmason Apprentice Expl anation Power of Audio Visual Engineer 07/31/2006 Care Teams Bridge Club Manager Relationship Specialty Start Date End Date Paul De La Rosa DO [address] [place] [address] PCP - General Family Medicine 09/26/16 documented as of this encounter
--- OUTSIDE RECORDS SUMMARY | 2023-05-16 06:53 | External Medical Summary | Summary of Care ---
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 Allergies Active Allergy Reactions Criticality Noted Date Comments Penicillins Nausea/vomiting High 07/31/2006 Other reaction(s): HX ASTHMA, MADE ASTHMA LIKE SYMPTOMS WORSE documented as of this encounter (statuses as of 03/08/2023) Medications Medication Sig Dispensed Refills Start Date End Date Status ASPIRIN 81 MG OR TABS one tab by mouth daily 34 5 5 Active FLUORIDE TOOTHPASTE DT PSTEIndications:Ar rested dental caries 0 9 Active B Fadhyri-S-Sewua Acid Oral Tablet Take by mouth daily. 0 1 Active LORazepam 0.5 MG Oral Tablet (Ativan) 1 Tablet. 0 1 Active latanoprost (XALATAN) 0.005 % ophthalmic solutionIndication s:Glaucoma of both eyes, unspecified glaucoma type 1 Drop at bedtime. 2.5 mL 12 7 11/29/19 23 Discontinued(Med ication List Clean Up) Atorvastatin Calcium 20 MG Oral Tablet (Lipitor)Indicatio ns:Dyslipidemia, goal LDL below 130 TAKE ONE TABLET BY MOUTH IN THE MORNING 90 Tablet 3 2 11/20/19 23 Discontinued(Ref ill) Levothyroxine Sodium 100 MCG Oral Tablet (Levoxyl)Indicatio ns:Acquired hypothyroidism TAKE ONE TABLET BY MOUTH IN THE MORNING AT LEAST 30 MINUTES PRIOR TO BREAKFAST OR OTHER MEDS 90 Tablet 3 2 05/31/19 23 Discontinued Lisinopril 40 MG Oral TabletIndications: Essential hypertension with goal blood pressure less than 140/90 TAKE ONE TABLET BY MOUTH IN THE MORNING 90 Tablet 3 2 11/29/19 23 Discontinued(Ref ill) Metoprolol Succinate ER 50 MG Oral Tablet Extended Release 24 Hour (toPROL XL)Indications:HTN , goal below 130/80 TAKE ONE TABLET BY MOUTH IN THE MORNING 90 Tablet 3 2 03/28/19 23 Discontinued(Med ication/Dose Changed) Vsnlcfq-Jppkdm-Cjy ll Pertussis 5-2.5-18.5 LF-MCG/0.5 Suspension Prefilled Syringe (Boostrix)Indicati ons:Need for diphtheria-tetanus -pertussis (Tdap) vaccine INJECT 0.5 ML INTO A LARGE MUSCLE ONCE FOR 1 DOSE DIRECTED .5 mL 0 2 03/28/19 23 Discontinued(Pat ient preference/disco ntinuation) hydroCHLOROthiazid e 12.5 MG Oral Capsule (Hydrodiuril) TAKE 1 CAPSULE BY MOUTH IN THE MORNING. 90 Capsule 3 2 07/05/19 23 Discontinued(Ref ill) Latanoprost 0.005 % Ophthalmic Solution (Xalatan) INSTILL ONE DROP INTO BOTH EYES AT BEDTIME 7.5 mL 4 2 06/28/19 23 documented as of this encounter (statuses as [...] IM, 12 yrs and above (Pfizer) 12/01/2021 Pneumococcal Conjugate Vacc, 13 Valent (Prevnar) [...] the money to buy more. Never true 11/05/19 22 Within the past 12 months, t he food you bought just didn't last and you didn't have money to get more. Never true 11/04/2021 Sex and Gender Information Value Date Recorded [...] Sign Reading Time Taken Comments Blood Pressure 138/82 02/13/2022 11:01 AM EST Pulse 51 02/13/2022 11:01 AM EST Temperature 36.3 C (97.3 F) 02/13/2022 11:[address] Respiratory Rate 18 02/13/2022 11:01 AM EST Oxygen Saturation 97% 02/13/2022 11:01 AM EST Inhaled Oxygen Concentration - - Weight 72.2 kg (159 lb 3.2 oz) 02/13/2022 11:01 AM EST Height 165 cm (5' 4.96") 02/13/2022 11:01 AM EST Body Mass Index 26.52 02/13/2022 11:01 AM EST documented in this encounter Patient Instructions * Patient Instructions* Bette Huynh RN - 02/13/2022 10:49 AM EST Patient Instructions - Fall Prevention (This education is for all patients over 65 regardless of symptoms) Remember to take your current medications as prescribed. In order to prevent falls, you are encouraged to: Exercise Utilize assistive/adaptive devices Avoid multifocal lenses when walking Avoid hazards in home Maintain a regular toileting schedule Any questions please contact our office. Preventing Falls in the Home (This education is for all patients over 65 regardless of symptoms) As you get older, falls are more likely. Thats because your reaction time slows. Your muscles and joints may also get stiffer, making them less flexible. Illness, medications, and vision changes can also affect your balance. A fall could leave you unable to live on your own. To make your home safer, follow these tips: Floors Put nonskid pads under area rugs Remove throw rugs Replace worn floor coverings Tack carpets firmly to each step on carpeted stairs. Put nonskid strips on the edges of uncarpeted stairs Keep floors and stairs free of clutter and cords Arrange furniture so there are clear pathways Clean up any spills right away Bathrooms Install grab bars in the tub or shower Apply nonskid strips or put a nonskid rubber mat in the tub or shower Sit on a bath chair to bathe Use bathmats with nonskid backing Lighting Keep a flashlight in each room Put a nightlight along the pathway between the bedroom and the bathroom Melissa Patient Education Copyright 2008 - 2010 Melissa except where otherwise noted Preventing Falls: Exercises to Improve Balance, Flexibility, Strength, and Staying Power (This education is for all patients over 65 regardless of symptoms) Certain types of exercises may help make you less likely to fall. Try the ones below. Or do other exercises that your healthcare provider suggests. Depending on your health, you may need to start slowly. Dont let that stop you. Even small amounts of exercise can help you. Be sure to talk to yourhealthcare provider before starting any exercise program. Improve Balance Many types of exercise can help improve balance. Tashia chi and yoga are good examples. Heres another one to try. You can do it anytime and almost anywhere. Stand next to a counter or solid support. Push yourself up onto your tiptoes. Hold for 5 seconds. If you start to lose your balance, hold on to the counter. Rest and repeat 5 times. Work up to holding for 20 to 30 seconds, if you can. Increase Flexibility Being more flexible makes it easier for you to move around safely. Try exercises like the seated hamstring stretch. Sit in a chair and put one foot on a stool. Straighten your leg and reach with both hands down either side of your leg. Reach as far down your leg as you can. Hold for about 20 seconds. Go back to the starting position. Then repeat 5 times. Switch legs. Build Strength Resistance exercises help build strength. You can do them without equipment. Or you can use weights, elastic bands, or special machines. One such exercise is called the biceps curl. You can hold a 1 pound weight or even a can of soup. Do this exercise at least 3 times a week. Strive for everyday. Sit up straight in a chair. Keep your elbow close to your body and your wrist straight. Bend your arm, moving your hand up to your shoulder. Then slowly lower your arm. Repeat 5 times. Switch to the other arm. Build Your Staying Power Aerobic exercises make your heart and lungs stronger so you can keep moving longer. Walking and swimming are two of the best types of exercises you can do. Using a stationary bike is great, too. Find an aerobic exercise that you enjoy. Start slowly and build up. Even 5 minutes is helpful. Aimfor a goal of 30 minutes, at least 3 times a week. You dont have to do 30 minutes in one session. Break it up and walk a little throughout the day. More Helpful Tips Start easy. Slowly work up to doing more. Talk with your healthcare provider about the best exercises for you. Call senior centers or health clubs about exercise programs. If needed, have a family member watch you walk every so often to check your stability. Exercise with a friend. Choose an activity you both enjoy. Try exercises that you can do anytime, anywhere. Here are two examples. Have someone with you when you first try these: Practice walking by placing one foot right in front of the other. Stand up and sit down 10 times. Repeat this throughout the day. Melissa Patient Education Copyright 2008 - 2010 Melissa except where otherwise noted. Preventing Falls: Moving Safely Using a Cane or Walker (This education is for all patients over 65 regardless of symptoms) Keep the cane away from your feet so you dont trip. A walking aid, such as a cane or walker, can help you stay more independent and avoid falls. Remember to keep your walking aid within easy reach when youre in a chair or in bed. And learn how to use it safely so you dont injure yourself. Using a Cane If you have a stronger side, hold the cane on that side. 17. Get your balance. 18. Move the cane and your weaker leg forward. 19. Support your weight on both the cane and your weaker side. 20. Step with your stronger leg. 21. Start again from step 1. If youre using a folding walker, be sure you know how to lock it open. Check that its locked open before each use. Using a Walker 7. Roll the walker (or lift it, if youre using one without wheels) forward about 12 inches. 8. Step forward with your weaker leg first. 9. Use the walker to help keep your balance. 10. Bring your other foot forward to the center of the walker. 11. Start again from step 1. Helpful Tips Check with your healthcare provider about the right walking aid to use. Ask about a walker with a seat attached. Check the tips of your cane or walker to make sure they have nonskid covers. Move slowly from room to room. Dont petersen. Sit down to get dressed. Use a kirby pack or backpack to keep your hands free. Get help for jobs that mean climbing, even on a stepstool. Melissa Patient Education Copyright 2008 - 2010 Melissa except where otherwise noted. Urinary Incontinence Plan of Care Documentation: (This education is for all patients over 65 regardless of symptoms) Current medications reconciled. Patient encouraged to: Practice kegal exercises Provide education materials Use the restroom every 2 hours throughout the day Limit caffeine, alcohol, spicy foods and acidic foods Keep a bladder diary Limit fluid intake 3-4 hours before bed Lose weight Prevent constipation Take fluid pills at a time when you can get to the bathroom quickly Control sugar better if diabetic Limit fluid intake to 60 oz. per day Wear support stockings (TEDs)if you have edema Bette Huynh RN 02/13/2022 Kegel Exercises Kegel exercises dont require special clothing or equipment. Theyre easy to learn and simple to do. And if you do them right, no one can tell youre doing them, so they can be done almost anywhere. Your doctor, nurse, or physical therapist can answer any questions you have and help you get started. A Weak Pelvic Floor The pelvic floor muscles may weaken due to aging, and vaginal childbirth, injury, surgery, chronic cough, or lack of exercise. If the pelvic floor is weak, your bladder and other pelvic organs may sag out of place. The urethra may also open too easily and allow urine to leak out. Kegel exercises can help you strengthen your pelvic floor muscles so they can better support the pelvic organs and control urine flow. How Kegel Exercises Are Done Try each of the Kegel exercises described below. When youre doing them, try not to move your leg, buttock, or stomach muscles. While youre urinating, try to stop the flow of urine. Start and stop it as often as you can. Contract as if you were stopping your urine stream, but do it when youre not urinating. Tighten your rectum as if trying not to pass gas. Contract your anus, but dont move your buttocks. Helpful Hints Do your Kegels as often as you can. The more you do them, the faster youll feel the results. Pick an activity you do often as a reminder. For instance, do your Kegels every time you sit down. Tighten your pelvic floor before you sneeze, get up from a chair, cough, laugh, or lift. This protects your pelvic floor from injury and can help prevent urine leakage. Try to hold each Kegel for a slow count to five. You probably wont be able to hold them for thatlong at first, but keep practicing. It will get easier as your pelvic floor gets stronger. Eventually, special weights that you place in your vagina may be recommended to help make your Kegels even more effective. Melissa Patient Education Copyright 2009 - 2010 Melissa except where otherwise noted. Here are some helpful tips for your urinary incontinence: (This education is for all patients over 65 regardless of symptoms) Practice Kegel exercises Use the restroom every 2 hours throughout the day Limit caffeine, alcohol, spicy foods, and acidic foods Keep a bladder diary Limit fluid intake 3-4 hours before bed Lose weight Prevent constipation Take fluid pills at a time when can get to the bathroom quickly Control sugar better if diabetic Limit fluid intake to 60 oz. per day Any questions, please feel free to contact our office. Hi Ms. Morneo, As your primary care physician, I know that regular visits with my patients who have several chronic conditions can go a long way in helping you stay healthy. Many times, the clinic team and I are in touch with you and/or other care team members between office visits to adjust medications, discuss any changes in your health, and review our care plan to make sure it is still meeting your needs. I am dedicated to helping you take a more active role in your overall care. It is important that there are resources available to you, so I created a personalized plan of care with a Health Calendar for you, which is included on the next page of this letter. Below is a list that summarizes your electronic health record: Health Maintenance Due: Health Maintenance Due Topic Date Due Hepatitis B (1 of 3 - 3-dose series) Never done Alb / Creat Ratio 01/07/2020 Depression Screening, Annual for Pts 12 and Over 07/13/2020 COVID-19 Vaccine (5 - Booster for Moderna series) 09/26/2021 GFR - Renal Function 01/11/2022 Current Medication List: (as of Visit date not found (in office), Visit date not found (telemedicine) ) Current Outpatient Medications Medication Sig Dispense Refill ASPIRIN 81 MG OR TABS one tab by mouth daily 34 5 FLUORIDE TOOTHPASTE DT PSTE 0 latanoprost (XALATAN) 0.005 % ophthalmic solution 1 Drop at bedtime. 2.5 mL 12 B Socfvzw-F-Voohx Acid Oral Tablet Take by mouth daily. Atorvastatin Calcium 20 MG Oral Tablet (Lipitor) TAKE ONE TABLET BY MOUTH IN THE MORNING 90 Tablet 3 Levothyroxine Sodium 100 MCG Oral Tablet (Levoxyl) TAKE ONE TABLET BY MOUTH IN THE MORNING AT LEAST 30 MINUTES PRIOR TO BREAKFAST OR OTHER MEDS 90 Tablet 3 Lisinopril 40 MG Oral Tablet TAKE ONE TABLET BY MOUTH IN THE MORNING 90 Tablet 3 Metoprolol Succinate ER 50 MG Oral Tablet Extended Release 24 Hour (toPROL XL) TAKE ONE TABLET BY MOUTH IN THE MORNING 90 Tablet 3 hydroCHLOROthiazide 12.5 MG Oral Capsule (Hydrodiuril) TAKE 1 CAPSULE BY MOUTH IN THE MORNING. 90 Capsule 3 Latanoprost 0.005 % Ophthalmic Solution (Xalatan) INSTILL ONE DROP INTO BOTH EYES AT BEDTIME 7.5 mL 4 LORazepam 0.5 MG Oral Tablet (Ativan) 0.5 mg. Oyinmvc-Vuufja-Lorcl Pertussis 5-2.5-18.5 LF-MCG/0.5 Suspension Prefilled Syringe (Boostrix) INJECT 0.5 ML INTO A LARGE MUSCLE ONCE FOR 1 DOSE DIRECTED .5 mL 0 No current facility-administered medications for this visit. Current List of Allergies: (as of Visit date not found (in office), Visit date not found (telemedicine) ) Review of patient's allergies indicates: Allergen Reactions Penicillins Nausea/vomiting Other reaction(s): HX ASTHMA, MADE ASTHMA LIKE SYMPTOMS WORSE Most Recent Lab Results: Results for orders placed or performed in visit on 11/02/21 TSH WITH FREE T4 IF INDICATED Result Value Ref Range TSH 0.93 0.27 - 4.20 uIU/mL Sincerely, Paul De La Rosa, DO 02/13/2022 [facility] Calendar (as of Visit date not found (in office), Visit date not found (telemedicine) ) Care needs Care needs Last completed Due next Hepatitis B vaccine (1 of 3 - 3-dose series) --- Never done Urine albumin/creatinine test 01/06/2019 01/07/2020 COVID-19 Vaccine (5 - Booster for Moderna series) 08/01/2021 09/26/2021 Kidney Function Test 07/11/2021 01/11/2022 Yearly thyroid level check 11/02/2021 11/02/2022 Diphtheria, tetanus & pertussis vaccines (4 - Td or Tdap) 11/07/2021 11/08/2031 As you look over the recommended services, be sure to check with your insurance company to determine what's covered. [employer] is a great tool that helps you review your medical record online, including test results, doctor notes and your health summary. You can also schedule appointments with me and other members of your care team, request prescription refills and ask for advice related to your medical conditions at [email or web address]. documented in this encounter Progress Notes * Bette Huynh, JEANINE - 02/13/2022 10:52 AM EST Images from the original note were not included. AD8 Dementia Screening Interview Person answering questions: patient Remember, "Yes, a change" indicates that there has been a change in the last several years caused by cognitive (thinking and memory) problems 1. Problems with judgement (eg: problems making decisions, bad financial decisions, problems with thinking). No (0) 2. Less interest in hobbies/activities. No (0) 3. Repeats the same things over and over (questions, stories, or statements). No (0) 4. Trouble learning how to use a tool, appliance, or gadget (eg: VCR, computer, microwave, remote control). No (0) 5. Forgets correct month or year. No (0) 6. Trouble handling complicated financial affairs (eg: balancing checkbook, income taxes, paying bills). No (0) 7. Trouble remembering appointments. No (0) 8. Daily problems with thinking and/or memory. No (0) TOTAL AD8: 0 - AD8 Dementia Screening Score The final score is a sum of the number items marked "Yes, A Change". 0 - 1: Normal cognition; 2 or greater: Cognitive impairments is likely to be present - further testing required Adult Annual Wellness Visit: Holli Moreno is a 77 year old female who presents for an Adult Annual Wellness Visit. Depression Screening: Did the patient complete the screening questionnaire for Depression? Yes Is the patient's total score for Depression 15 or greater? No, no further intervention needed, unless requested by patient. Did the patient answer positively to the suicide question? No, no further intervention needed, unless requested by patient. In general, compared to other people your age, what would you say that your health is? Very Good Ht Readings from Last 1 Encounters: 02/13/22 1.65 m (5' 4.96") Wt Readings from Last 1 Encounters: 02/13/22 72.2 kg (159 lb 3.2 oz) Body Mass Index: BMI Less than 30 Body mass index is 26.52 kg/m. BP Readings from Last 1 Encounters: 02/13/22 138/82 Medical/Surgical/Family History Reviewed: Yes Past Medical History: Diagnosis Date Benign colon polyp 07/31/14 hyperplastic repeat 10 years Calculus of kidney 05/09/2007 Carcinoma in situ of cervix uteri Dyslipidemia, goal LDL below 100 02/25/2009 Per Lipid Taxonomy. Endometrial cancer (HCC) 07/2000 Edy with radiation HTN, goal below 130/80 04/08/2009 Per HTN Taxonomy. 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.02 endometrioid adenocarcinoma stage 1B, grade 3 Past Surgical History: Procedure Laterality Date BREAST LESION,OTHER,EXCISION Right 04/07/2015 Papilloma COLONOSCOPY, DIAGNOSTIC (RECTUM) 07/31/2014 hyperplastic polyp, diverticulosis, repeat 10 yrs/COLONOSCOPY FLEXIBLE PROXIMAL DIAGNOSTIC performed by Brad Robins MD at ENDOSCOPY [facility] COLONOSCOPY, REMOVE LESION 06/14 hyperplastic polyps, repeat 2014 COLORECTAL CANCER SCREEN;W/FLE 09/06/98 WNL CYSTOSCOPY 06-14-07 CYSTOSCOPY 07-23-07 stent removal CYSTOSCOPY 12-31-07 STENT REMOVAL CYSTOSCOPY/INSERTION OF STENT 12-04-2007 CYSTOURETERO W/LITHOTRIPSY 12-04-2007 EXC BREAST LESION RADMARK Right 04/07/2015 04/07/2015 right breast EXCISION OF BREAST LESION RADIOLOGICAL MARKER performed by Lynnette Doshi MD at OR [facility] dx: breast , right 10:00, needle localization [...] HYSTERECTOMY W/WO REMOVAL OF TUBE(S) Bilateral 07/10 EDY/BSO, Stage IB Grade 3 endometrial camcer Family History Problem Relation Age of Onset Neurological Disorder Mother dementia/seizures Hypertension Father skin cancer Cancer Grandmother (Paternal) breast Breast Cancer Grandmother (Paternal) Cancer Brother bladder Cancer Brother colon/liver Other (Other) Other no ovarian cancer Has patient ever had cancer? History of cancer, type: uterine and location: uterus, treated with hysterectomy and radiation treatment. Social History Tobacco Use Smoking status: Never Smokeless tobacco: Never Substance Use Topics Alcohol use: Yes Comment: infreq. Vaping/E-Cigarette Use Vaping/E-Cigarette Use Never User Passive Exposure No Counseling Given? No Vaping/E-Cigarette Substances Nicotine No Other No Flavoring No THC No Cannabidiol (CBD) No Vaping/E-Cigarette Devices Disposable No Pre-filled or Refillable Cartridge No Refillable Tank No Pre-filled Pod No Tobacco/Alcohol screening completed today? Yes Hospital Care: Admissions (within the last year): Not Applicable ER within 30 days: No Does the patient have an Advance Directives/Living Will? Yes Last Physical Exam: Last physical exam: 11/07/2021 Does patient see primary provider regularly? Yes Does patient see other providers? Yes, Specialist Patient Care Team updated? Yes Review of patient's allergies indicates: Allergen Reactions Penicillins Nausea/vomiting Other reaction(s): HX ASTHMA, MADE ASTHMA LIKE SYMPTOMS WORSE Immunization History Administered Date(s) Administered COVID-19 mRNA, LNP-s, No Preserve, 2-Dose Series (Moderna) 05/17/2020, 06/19/2020 Covid-19 Mrna, Lnp-s, No Preserve, Booster (Moderna) 01/25/2021, 08/01/2021 Covid-19, Mrna, Lnp-s, Pf, Bivalent Booster, 30 Mcg, IM, 12 yrs and above (W-locate) 12/01/2021 Pneumococcal Conjugate Vacc, 13 Valent (Prevnar) 05/27/2015 Pneumococcal Polysaccharide PPV23 (Pneumovax) 02/14/2007, 11/19/2013 Seasonal Influenza, Quadrivalent Hd (Fluzone Hd) 02/22/2021, 01/16/2022 Seasonal Influenza, Quadrivalent, No Preserve, 6 Mons & Above, IM 12/13/2016, 12/31/2017 Seasonal Influenza, Quadrivalent, No Preserve, Adjuvanted, 65+ Yrs, IM 01/20/2020 Seasonal Influenza, Quadrivalent, No Preserve, IM 12/15/2015 Seasonal Influenza, Split, IIV3, With Preserve, Inj 01/12/2006, 02/14/2007, 01/03/2010, 04/12/2011, 11/28/2011, 11/23/2012, 11/19/2013, 11/26/2014 Seasonal Influenza, Trivalent, Adjuvanted, 65+ yrs 01/13/2019 TD - Tetanus/Diptheria (ADULT) 02/24/1998 TDAP (age 10 and older)(Boostrix) 11/07/2021 TDAP (age 11 and older)(Adacel) 07/31/2006, 07/29/2011 Varicella Zoster Vaccine (Adult) 09/14/2008 Zoster Vaccine Recombinant (Shingrix) 07/21/2019, 11/10/2019 Current Outpatient Medications Medication Sig Dispense Refill ASPIRIN 81 MG OR TABS one tab by mouth daily 34 5 FLUORIDE TOOTHPASTE DT PSTE 0 latanoprost (XALATAN) 0.005 % ophthalmic solution 1 Drop at bedtime. 2.5 mL 12 B Kifdpih-Z-Lvwxn Acid Oral Tablet Take by mouth daily. Atorvastatin Calcium 20 MG Oral Tablet (Lipitor) TAKE ONE TABLET BY MOUTH IN THE MORNING 90 Tablet 3 Levothyroxine Sodium 100 MCG Oral Tablet (Levoxyl) TAKE ONE TABLET BY MOUTH IN THE MORNING AT LEAST 30 MINUTES PRIOR TO BREAKFAST OR OTHER MEDS 90 Tablet 3 Lisinopril 40 MG Oral Tablet TAKE ONE TABLET BY MOUTH IN THE MORNING 90 Tablet 3 Metoprolol Succinate ER 50 MG Oral Tablet Extended Release 24 Hour (toPROL XL) TAKE ONE TABLET BY MOUTH IN THE MORNING 90 Tablet 3 hydroCHLOROthiazide 12.5 MG Oral Capsule (Hydrodiuril) TAKE 1 CAPSULE BY MOUTH IN THE MORNING. 90 Capsule 3 Latanoprost 0.005 % Ophthalmic Solution (Xalatan) INSTILL ONE DROP INTO BOTH EYES AT BEDTIME 7.5 mL 4 LORazepam 0.5 MG Oral Tablet (Ativan) 0.5 mg. Ckcbsun-Npvsyi-Hyqcq Pertussis 5-2.5-18.5 LF-MCG/0.5 Suspension Prefilled Syringe (Boostrix) INJECT 0.5 ML INTO A LARGE MUSCLE ONCE FOR 1 DOSE DIRECTED .5 mL 0 No current facility-administered medications for this visit. Patient Active Problem List Diagnosis Code ADVANCE DIRECTIVE INFORMATION Dyslipidemia, goal LDL below 130 E78.5 HTN, goal below 140/90 I10 History of renal stone Z87.442 Acquired hypothyroidism E03.9 Primary open-angle glaucoma, bilateral, moderate stage H40.1132 Benign hypertension with stage 3b chronic kidney disease (HCC) I12.9, N18.32 Medication Compliance: Patient is able to obtain all of her medications? Yes Patient takes medications as prescribed? Yes Patient manages own medications: Yes Patient uses a pill box? Yes, refill(s) completed by self Dental Exam: Yes: Every 6 Months Eye Screening: Yes: Every 4 months Are you having trouble with hearing? No Do you use an assistive device to help your hearing? No Exercise Screening: daily exercise, likes to walk at least a mile daily, depending on weather. Nutrition Assessment: Eats a balanced diet and Eats three meals a day Pain Screening: Are you having any pain? No Sleep Screening Tool 'STOP': 1. Do you snore? No 2. Do you feel fatigued during the day? No 3. Do you wake up feeling like you haven't slept? No 4. Have you been told you stop breathing at night? No 5. Do you gasp for air or choke while sleeping? No 6. Have you been told you have Sleep Apnea? No 7. Do you have high blood pressure or are on medication(s) to control high blood pressure? Yes SCORE: If you check YES to two or more questions, make a referral for Obstructive Sleep Apnea Patient and Caregiver Support System: Patient lives alone Means of Transportation: [facility] Patient lives in One Story, 4th floor of apartment building and does have an elevator. Community Resources: Not Applicable Functional Status and ADL Skills: Has patient ever had an amputation? No Functional Assessment: 90- Able to carry on normal activity, minor symptoms of disease Ambulation: Patient ambulates with assistive device. Walking stick Dressing: Gets clothes and dresses without any assistance: Independent Able to move freely in chair or bed including turning over: Independent Repositioning (bed or chair): Not applicable Transfers: Independent Toileting: Goes to bathroom, uses toilet, arranges clothes and returns without any assistance: Independent Toileting: continent of bladder and continent of bowel Feeding: Self Bathing: Self; tub in shower, grab bar present, floor of tub is textured with rubber mat, when getting out of shower patient steps onto bath mat/rug. Requires none assistance with ADLs. Instrumental ADL's: Shopping: Independent Housekeeping: Independent Handling Finances: Independent DME Vendor Name: Not Applicable Fall Risk Assessment: Can the patient demonstrate that she can stand from a sitting position? Yes Has the patient had a fall within the last 6 months? No Does the patient have a problem with her gait or balance? Yes Does the patient take 4 or more prescription medicines? Yes Does the patient use sedatives or narcotics? No Fall Risk Factors Present: Uses more than 4 medications Uses assistive devices Balance or gait disturbances Lower extremity weakness Older than age 70 Kol-Te-qrb-Go Test: Time began at 1045. Patient stood from sitting position and walked approximately 10 feet, returned and sat down. Total time for atm-zp-bje-go test was 12 seconds. Vjo-Vj-als-Go Test completed? Yes Gender Specific Preventative Plan: Health Maintenance Topic Date Due Hepatitis B (1 of 3 - 3-dose series) Never done Alb / Creat Ratio 01/07/2020 Depression Screening, Annual for Pts 12 and Over 07/13/2020 GFR - Renal Function 01/11/2022 CKD HGB USE SMARTSET 73064 07/11/2022 CKD PHOS USE SMARTSET 34262 07/11/2022 TSH FOR THYROID MEDICATION MONITORING YEARLY 11/02/2022 DTaP,Tdap,and Td Vaccines (4 - Td or Tdap) 11/08/2031 Influenza Vaccine (FLU shot) Completed Zoster Vaccines Completed Pneumococcal Vaccine: 65+ Years Completed COVID-19 Vaccine Completed MENINGOCOCCAL (MENACTRA/MENVEO) Aged Out GARDASIL-HPV IMMUNIZATION SERIES Aged Out Routine general medical examination at a health care facility (Primary) Risk and functional assessment Dyslipidemia, goal LDL below 130 Continue to monitor and take current medications. Lab Results Component Value Date/Time LDL CHOLESTEROL (CALCULATED) - [facility] 49 09/01/2020 10:28 AM LDL CHOLESTEROL (CALCULATED) - [facility] 50 10/06/2019 11:40 AM LDL CHOLESTEROL (DIRECT MEASURE) - [facility] NOT APPLICABLE 10/06/2019 11:40 AM LDL CHOLESTEROL (DIRECT MEASURE) - [facility] 123 05/13/2015 11:21 AM Acquired hypothyroidism Continue to monitor and take current medications. Lab Results Component Value Date/Time TSH - [facility] 0.93 11/02/2021 11:27 AM TSH - [facility] 0.62 09/01/2020 10:28 AM TSH - [facility] 0.60 01/14/2020 10:22 AM TSH - [facility] 3.60 07/16/2019 02:21 PM TSH - [facility] 3.21 12/26/2017 11:37 AM HTN, goal below 140/90 Continue to monitor and take current medications. BP Readings from Last 3 Encounters: 02/13/22 138/82 11/07/21 136/84 07/14/21 134/80 Benign hypertension with stage 3b chronic kidney disease (HCC) Continue to monitor and take current medications. Continue to follow-up with nephrology. Last labs 07/11/21: BUN 6 - 20 mg/dL 20 Creatinine 0.5 - 1.0 mg/dL 1.2High Estimated Glomerular Filtration Rate >=60 mL/min 50 Primary open-angle glaucoma, bilateral, moderate stage Continue to monitor and follow-up with ophthalmology. Patient received two covid vaccines and three booster shots, last one being 12/01/21, immunization record updated. Patient received flu shot on 01/16/22, immunization record already updated. Patient's last dexa scan done 08/2014, telephone encounter sent to Dr. De La Rosa to see if he would like another one ordered. Patient's last mammogram done 01/2020, telephone encounter sent to Dr. De La Rosa to see if he wouldlike her to do another one. Patient had colonoscopy on 07/2014, recommended repeat in 10 years. Patient had protein creat done on 07/11/21. Patient is seeing a decrease in her weight over the past "few years". She always struggled with keeping weight off, but is now seeing a decrease in her appetite and weight. She currently does a low oxalate diet per recommendations from nephrology. Patient will discuss with DR. De La Rosa and recommended she also discuss with Dr. Stevens due to her CKD. Encouraged patient to talk with them about possibly using boost or ensure to help keep her protein intake up. Patient verbalized understanding. Aging and Nutrition Problems education material shared to patient's MyG. Follow Up: Return in 1 year (on 02/13/2023) for 12 month Subsequent Adult Wellness Visit. | For: 12 month Subsequent Adult Wellness Visit | Check-out note: 12 month Subsequent Adult Wellness Visit Would patient like to schedule next AWV visit? Yes Bette Huynh RN documented in this encounter Miscellaneous Notes * Pt Handout (on AVS) - Bette Huynh RN - 02/13/2022 11:35 AM EST Images from the original note were not included. 20718 Aging and Nutrition Problems Poor nutrition means not getting enough nutrients from food to keep you healthy. This can cause many kinds of health problems. Poor nutrition can make you lose muscle. It can make you feel tired and weak. And it can make it harder for your body to fight infection and heal wounds. You may have trouble with daily tasks. You may even lose mobility. Work with your healthcare provider to make sure you get enough nutrients to be healthy and maintain a good quality of life. What nutrients do you need? Nutrients you need from food to keep you healthy include: Protein. Protein can help build muscle and prevent infections. It?s found in meats, fish, eggs, cheese, milk, nuts, and beans. This is the most common nutrient that older adults don?t get enough of. Carbohydrates. These help give you energy. They have fiber to help with digestion. Carbohydratesare found in grains, fruits, beans, and other legumes. Fats. Healthy fats help your organs, skin, hair, and brain. They also help your body absorb certain vitamins. Vitamins. These include vitamins C, D, B-6, B-12, folate, and others. These help your body repair tissues, use energy, and do many other processes. Minerals. These include iron, magnesium, calcium, zinc, and others. These help with many things.They make sure your cells have enough oxygen, your nervous system works well, and your bones stay strong. What can cause poor nutrition? Older adults may have nutrition problems due to any of these: Eating less food Not eating enough variety of foods Not absorbing enough nutrients from food You may be eating less because of: Not being hungry very often Feeling full too quickly Feeling full for a long time Appetite for food can change because of: Changes in hormones that control or affect hunger Less ability to smell and taste Lack of physical activity Slowed digestion Stress Depression Medicine that causes low appetite Cancer and cancer treatment Dementia Alcoholism Parkinson disease Or you may be eating less, or less variety of foods, because of: Teeth or denture problems that make biting and chewing difficult Trouble swallowing (dysphagia) Trouble using your arms, hands, or fingers because of pain, stiffness, or tremor Stomach acid reflux Being less able to go grocery shopping Being less able to cook and prepare food Lack of interest in cooking Living alone and eating most meals alone Being in a housing facility where you don?t like the food You may have problems that cause your body not to absorb enough nutrients. This can be from: Diarrhea Constipation Vomiting Nausea Gastritis Problems from poor nutrition Older adults who don?t have good nutrition may have problems such as: Unplanned weight loss Loss of muscle Less strength Feeling tired and weak Trouble with balance and walking Trouble thinking and remembering Trouble with bathing, dressing, and other daily tasks Weakened bones Wounds that are slow to heal Gum problems and tooth loss Falls that can cause injury Slow recovery from surgery Worsening of conditions such as COPD or heart disease More infections Loss of mobility and independence Earlier Making changes to eat better Talk with your healthcare provider about the reasons you may be eating less food, or less variety of foods. They can help you make changes to get better nutrition. These may include: Working with a director of accreditation or dietitian Finding foods that are easier to eat if you have trouble chewing or swallowing Medicines to help with digestive problems Having protein, vitamin, mineral, or other nutritional supplements Counseling or medicine for depression Dental care to fix pain and other problems Talking with your housing facility about other food options Local services to help with shopping for and preparing food Local services that provide cooked meals to seniors Eating your meals in social settings Getting enough protein Old adults are at most risk of not getting enough protein in their diets. This is known as protein-energy malnutrition (PEM). Protein is one of the most important nutrients for staying healthy. Talk with your healthcare provider about the best ways to get enough protein every day. This may include: Adding protein to every meal. This includes turkey, chicken, beef, pork, gruber, fish, shellfish, eggs, and cheese. Protein is also found in foods such as nuts, nut butters, beans and other legumes,seeds, and tofu. You can also get protein from animal milks and soy milk. Having protein supplements between meals. There are many kinds of protein drinks and other protein supplements. These have protein from whey, soy, and other sources. If you have trouble digesting lactose or soy, ask your healthcare provider which type of protein supplement may be best for you. Last Reviewed Date: 07/11/201919990508-7176 [employer]. All rights reserved. This information is not intended as a substitute for professional medical care. Always follow your healthcare professional's instructions. * Pt Handout (on AVS) - Bette Huynh RN - 02/13/2022 11:07 AM EST Images from the original note were not included. 03219 Preventing Falls: Making Changes in Your Living Space Is your living space filled with hazards that could cause you to fall? Changes can make you safer. They could even save your life. Take a careful look around your home. Change what you can on your own. Hire someone or ask friends or family to help with harder tasks. Be sure to add a nonslip mat to the inside of your shower or bathtub. Always keep a nightlight on. Keep a clear path from your bed to the bathroom. Move items from higher shelves to lower ones. Remove hazards Remove things that can trip you, like throw rugs, boxes, piles of paper, or cords. Nail down rugs or carpeting if you don't want to remove them. Don't store items on stairs. Keep walkways clear. Clean up spills right away. Replace glass tables with wooden ones. They're safer if you fall. Add safety devices Add handrails to both sides of stairs. Buy a raised toilet seat. Add grab bars near the toilet and in the shower. Get grabbers to help you reach things and avoid climbing. Improve lighting Add nightlights to halls, bedrooms, and bathrooms. Put light switches at the top and bottom of stairs. Be sure each room and flight of stairs has proper lighting. Use shades or curtains to cut glare from windows. Put flashlights in each room. Replace burned-out bulbs. Get glowing light switches for room entrances. Take other precautions Use nonskid floor wax. Buy a nonslip mat and a liquid soap dispenser for the shower. Tack down carpets or use slip-resistant backing. Put most-used items within easy reach. Add bright paint or tape on the top front edge of steps. Save big jobs, such as moving furniture or other heavy objects, for family or friends. Get professional help installing grab bars. They can be unsafe if not installed the right way. Fix riskier rooms first Don't tackle everything at once. Focus on one room at a time. The bathroom is a common spot for falls, so you may want to start there. Or start with a room you spend lots of time in, such as your bedroom. Make only a few changes at once. This will give you time to adjust to them. Outside safety You might arrange for these changes yourself, or you might need to talk to your building performance consultant or[employer] association about them. Have loose boards on porches or damaged stairs repaired. Have rough edges, holes, or large cracks in sidewalks or driveways repaired. Remove hazards that could trip you, such as hoses or pepe. Use high-wattage light bulbs (100 marroquin or greater) near outside doors and stairs. Add handrails to outside stairs. Have them extend beyond the bottom step. Get help in winter weather with ice or snow removal. Last Reviewed Date: 07/11/201919992062-2123 The [employer]. All rights reserved. This information is not intended as a substitute for professional medical care. Always follow your healthcare professional's instructions. * Pt Handout (on AVS) - Bette Huynh RN - 02/13/2022 11:07 AM EST Images from the original note were not included. 40208 Exercises to Prevent Falls Certain types of exercises may help make you less likely to fall. Try the ones below or do other exercises that your healthcare provider suggests. Depending on your health, you may need to start slowly. Don't let that stop you. Even small amountsof exercise can help you. Talk with your healthcare provider before starting any exercise program. Improve balance Many types of exercise can help improve balance. Tashia chi and yoga are good examples. Here's anotherone to try. You can do it anytime and almost anywhere. Stand next to a counter or solid support. Push yourself up onto your tiptoes. Hold for 5 seconds. If you start to lose your balance, hold on to the counter. Rest and repeat 5 times. Work up to holding for 20 to 30 seconds, if you can. Increase flexibility Being more flexible makes it easier for you to move around safely. Try exercises like the seatedhamstring stretch. o Sit in a chair and put one foot on a stool. o Straighten your leg and reach with both hands down either side of your leg. Reach as far down your leg as you can. o Hold for about 20 seconds. o Go back to the starting position. Then repeat 5 times. Switch legs. o o Build strength o Resistance exercises help build strength. You can do them without equipment. Or you can use weights, elastic bands, or special machines. One such exercise is called the biceps curl. You can hold a 1-pound weight or even a can of soup. Do this exercise at least 3 times a week. Strive for every day. Sit up straight in a chair. Keep your elbow close to your body and your wrist straight. Bend your arm, moving your hand up to your shoulder. Then slowly lower your arm. Repeat 5 times. Switch to the other arm. Build your staying power Aerobic exercises make your heart and lungs stronger so you can keep moving longer. Walking and swimming are 2 of the best types of exercises you can do. Using a stationary bike is great, too. Find an aerobic exercise that you enjoy. Start slowly and build up. Even 5 minutes is helpful. Aim for a goal of 30 minutes, at least 3 times a week. You don't have to do 30 minutes in 1 session. Break it up and walk a little throughout the day. Starting out safely and slowly Start easy. Slowly work up to doing more. Talk with your healthcare provider about the best exercises for you. Call senior centers or health clubs about exercise programs. If needed, have a family member watch you walk every so often to check your stability. Exercise with a friend. Choose an activity you both enjoy. Be sure to gently warm up and cool down. Drink fluids, such as water, to stay hydrated. If your provider recommended that you limit fluids, ask them how much is OK to drink while exercising. Consider tashia chi or yoga to strengthen your balance. Try exercises that you can do anytime, anywhere. Here are 2 examples. Have someone with you whenyou first try these: o Practice walking by placing one foot right in front of the other. o Stand up and sit down 10 times. Repeat this throughout the day. Last Reviewed Date: 01/10/202219999212-2044 [employer]. All rights reserved. This information is not intended as a substitute for professional medical care. Always follow your healthcare professional's instructions. documented in this encounter Plan of Treatment Upcoming Encounters Date Type Department Care Team (Late st Contact Info) Description 03/30/2023 2:40 PM EST Office Visit Nephrology, [facility] [address] [facility] [place] [address] Héctor Stevens MD [address] [facility] [place] [address] 07/02/2023 12:40 PM EDT Office Visit Family Practice [facility] [address] [facility] [place] [address] Paul De La Rosa, [address] [facility] [place] [id number] Scheduled Procedures Name Priority Associated Diagnoses Date/Ti me COLONOSCOPY FLEXIBLE PROXIMA L DIAGNOSTIC Recall Special screening for malignant neoplasms, colon Health Maintenance Due Date Last Done Comments COVID-19 Vaccine ( season) 2022 08/25/2022, 12/01/2021, 08/01/2021, Additional history exists Depression Screening 02/13/2023 02/13/2022 Albumin/Creatinine Ratio 05/24/20232 023, 01/06/2019, 03/28/2018, Additional history exists GFR 05/24/2023 11/23/2022, 05/10, 03/24/2022, Additional history exists CKD HGB USE SMARTSET 63822 11/24/202311/23, 11/23/2022, 03/24/2022, Additional history exists CKD PHOS USE SMARTSET 12318 11/24/202311/10, 03/24/2022, 07/11/2021, Additional history exists TSH [...] as of this encounter Visit Diagnoses Diagnosis Routine general medical examination at a health care facility- Primary Risk and functional assessment Screening for unspecified condition Dyslipidemia, goal LDL below 130 Other and unspecified hyperlipidemia Acquired hypothyroidism Unspecified hypothyroidism HTN, goal below 140/90 Unspecified essential hypertension Benign hypertension with stage 3b chronic kidney disease (HCC) Primary open-angle glaucoma, bilateral, moderate stage documented in this encounter Advance Directives Documents on File Type Date Recorded Patient Wheel Cutter Expl anation Power of Neuropsychology Director 07/31/2006 Care Teams Formation Fracturing Operator Relationship Specialty Start Date End Date Paul De La Rosa DO [address] [place] [address] PCP - General Family Medicine 09/26/16 documented as of this encounter
--- OUTSIDE RECORDS SUMMARY | 2023-05-16 06:54 | External Medical Summary | Summary of Care ---
Author Name Unknown Organization [facility] Address [address] [place] [address] Phone [phone] Care Team Providers Care Business Technology Professor Name Role Phone Donya Jang DO Primary Care Provider [phone] Reason for Visit * Reason Comments Medication Refill Encounter Details Date Type Department Care Team Description 11/19/2022 Refill Family Practice [facility] [place] [address] [place] [address] Donya aJng DO [address] [facility] [address] Dyslipidemia, goal LDL below 130 Allergies Active Allergy Reactions Severity Noted Date Comments Penicillins Nausea/vomiting High 07/31/2006 Other reaction(s): HX ASTHMA, MADE ASTHMA LIKE SYMPTOMS WORSE documented as of this encounter (statuses as of 11/21/2022) Medications Medication Sig Dispensed Refills Start Date End Date Status ASPIRIN 81 MG OR TABS one tab by mouth daily 34 5 04/07/2004 Active FLUORIDE TOOTHPASTE DT PSTEIndications:Ar rested dental caries 0 01/18/2009 Active latanoprost (XALATAN) 0.005 % ophthalmic solutionIndication s:Glaucoma of both eyes, unspecified glaucoma type 1 Drop at bedtime. 2.5 mL 12 12/13/2016 Active B Aieyqdh-V-Qiqps Acid Oral Tablet Take by mouth daily. 0 05/14/2020 Active LORazepam 0.5 MG Oral Tablet (Ativan) 1 Tablet. 0 09/13/2020 Active Lisinopril 40 MG Oral TabletIndications: Essential hypertension with goal blood pressure less than 140/90 TAKE ONE TABLET BY MOUTH IN THE MORNING 90 Tablet 3 11/07/2021 3 Active Vitamin D 25 MCG (1000 UT) Oral Tablet Take 1 Tablet by mouth in the morning. 0 Active Levothyroxine Sodium 112 MCG Oral Tablet (Levoxyl) Take 1 Tablet by mouth in the morning. (at least 30 min prior to breakfast or other meds). 90 Tablet 3 05/30/2022 Active hydroCHLOROthiazid e 12.5 MG Oral Capsule [...] THE MORNING 90 Tablet 3 11/21/2022 Active Atorvastatin Calcium 20 MG Oral Tablet (Lipitor)Indicatio ns:Dyslipidemia, goal LDL below 130 TAKE ONE TABLET BY MOUTH IN THE MORNING 90 Tablet 3 11/07/2021 3 Discontinue d(Refill) documented as of this encounter (statuses as of 11/21/2022) Active Problems Problem Noted Date Benign hypertension [...] as of this encounter (statuses as of 11/21/2022) Resolved Problems Problem Noted Date Resolved Date [...] as of this encounter (statuses as of 11/21/2022) Immunizations Name Administration Dates Next Due COVID-19 [...] encounter Miscellaneous Notes * Telephone Encounter - Walker Avalos [facility] - 11/21/2022 6:59 AM EDTSigned Prescriptions: Disp Refills Atorvastatin Calcium 20 MG Oral Tablet (Li*90 Tab*3 Sig: TAKE ONE TABLET BY MOUTH IN THE MORNINGAuthorizing Provider: DONYA JANG User: WALKER AVALOS documented in this encounter Plan of Treatment Upcoming Encounters Date Type Specialty Care Team Description 11/28/2022 Office Visit Family Medicine Donya Jang DO [address] [place] [address] 03/30/2023 Office Visit Nephrology Héctor Stevens MD [address] [place] [address] Scheduled Procedures Name Priority Associated Diagnoses Date/Ti me COLONOSCOPY FLEXIBLE PROXIMA L DIAGNOSTIC Recall Special screening for malignant neoplasms, colon Health Maintenance Due Date Last Done Comments Influenza Vaccine (FLU shot) (#1) 2022 01/16/2022, 02/22/2021, 01/20/2020, Additional history exists GFR 11/23/2022 05/23/2022, 03/12, 07/11/2021, Additional history exists Depression Screening 02/13/2023 02/13/2022 CKD HGB USE SMARTSET 90393 03/24/202303/24, 07/11/2021, 01/05/2021, Additional history exists CKD PHOS USE SMARTSET 41448 03/24/202303/12, 07/11/2021, 01/05/2021, Additional history exists Albumin/Creatinine Ratio 05/24/202305/23/2 023, 01/06/2019, 03/28/2018, Additional history exists TSH 05/24/2023 05/23/2022, 10/11, 09/01/2020, Additional history exists DTaP,Tdap,and Td Vaccines (4 [...] as of this encounter Visit Diagnoses Diagnosis Dyslipidemia, goal LDL below 130 Other and unspecified hyperlipidemia documented in this encounter Advance Directives Documents on File Type Date Recorded Patient Cable Lacer Expl anation Power of Origination Specialist 07/31/2006 Care Teams Business Technology Professor Relationship Specialty Start Date End Date Donya Jang, DO [address] [place] [facility] [address] PCP - General Family Medicine 09/26/16 documented as of this encounter
--- OUTSIDE RECORDS SUMMARY | 2023-05-16 06:54 | External Medical Summary ---
Author Name Unknown Address Unknown Organization [id number][facility] [place] [address] Laboratory Report Ordering Provider Test Date Status CANDELARIA MORROW 11/23/2022 09:58:33 Final Observation Date Value Abnormality Reference (Units ) Status WBC, Total 11/23/2022 09:58:33 6.33 4.00-10.8 0 (K/uL) Final RBC 11/23/2022 09:58:33 4.04 3.85-5.15 (M/uL) Final Hemoglobin 11/23/2022 09:58:33 12.4 12.0-15.3 (g/dL) Final HCT 11/23/2022 09:58:33 38.1 36.0-45.2 (%) Final MCV 11/23/2022 09:58:33 94.3 81.5-97.5 (fL) Final MCH 11/23/2022 09:58:33 30.7 27.0-34.0 (pg) Final MCHC 11/23/2022 09:58:33 32.5 32.0-36.0 (g/dL) Final RDW 11/23/2022 09:58:33 13.7 11.5-15.5 (%) Final Platelets 11/23/2022 09:58:33 229 140-400 (K /uL) Final MPV 11/23/2022 09:58:33 10.4 6.6-11.1 ( fL) Final Performing Location [facility] [place] [address]
--- OUTSIDE RECORDS SUMMARY | 2023-05-16 06:54 | External Medical Summary ---
Author Name Unknown Address Unknown Organization [id number]:[facility] [place] [address] Laboratory Report Ordering Provider Test Date Status CANDELARIA MORROW 11/23/2022 09:58:33 Final Observation Date Value Abnormality Reference (Units ) Status BUN 11/23/2022 09:58:33 19 6-20 (mg/dL) Final Creatinine 11/23/2022 09:58:33 1.0 0.5-1.0 (mg/dL) Final Glomerular filtration rate/1.73 sq M.predicted [Volume Rate/Area] in Serum, Plasma or Blood by Creatinine-based formula (CKD-EPI) 11/23/2022 09:58:33 57 Below low normal >=60 (mL/min) Final eGFR is calculated based on the CKD-EPI 2020 equation SODIUM 11/23/2022 09:58:33 133 Below low normal 135 -146 (mmol/L) Final Potassium 11/23/2022 09:58:33 4.5 3.5-5.1 (m mol/L) Final Cl 11/23/2022 09:58:33 95 Below low normal 98- 107 (mmol/L) Final CO2 11/23/2022 09:58:33 28 22-32 (mmo l/L) Final Anion gap 11/23/2022 09:58:33 10 7-15 (mmol /L) Final Glucose 11/23/2022 09:58:33 88 70-120 (mg /dL) Final Calcium 11/23/2022 09:58:33 9.9 8.4-10.2 ( mg/dL) Final Albumin 11/23/2022 09:58:33 4.2 3.8-5.0 (g /dL) Final Phosphate 11/23/2022 09:58:33 3.6 2.5-4.8 (m g/dL) Final Performing Location [facility] [place] [address]
--- OUTSIDE RECORDS SUMMARY | 2023-05-16 06:54 | External Medical Summary ---
Author Name Unknown Address Unknown Organization [id number]:[facility] [address] [place] [address] Laboratory Report Ordering Provider Test Date Status CRISTHIANARSLANEJ 11/23/2022 09:58:33 Final Observation Date Value Abnormality Reference (Units ) Status Parathyrin.intact [Mass/volume] in Serum or Plasma 11/23/2022 09:58:33 52 15-65 (pg/mL) Final Performing Location [facility] [place] [address] [place] [address]
--- OUTSIDE RECORDS SUMMARY | 2023-05-16 06:54 | External Medical Summary | Summary of Care ---
Author Name Unknown Organization [facility] Address [address] [place] [address] Phone [phone] Care Team Providers Care Band Cutting Machine Operator Name Role Phone Paul De La Rosa DO Primary Care Provider [phone] Reason for Visit * Reason Comments Outpatient Testing Encounter Details Date Type Department Care Team Description 11/23/2022 Laboratory Laboratory [address] [facility] [address] [place] [address] [place], Lab Scenery [address] [place] [address] Acquired hypothyroidism; Stage 3a chronic kidney disease (HCC) Allergies Active Allergy Reactions Severity Noted Date Comments Penicillins Nausea/vomiting High 07/31/2006 Other reaction(s): HX ASTHMA, MADE ASTHMA LIKE SYMPTOMS WORSE documented as of this encounter (statuses as of 11/23/2022) Medications Medication Sig Dispensed Refills Start Date End Date Status ASPIRIN 81 MG OR TABS one tab by mouth daily 34 5 04/07/2004 Active FLUORIDE TOOTHPASTE DT PSTEIndications:Arr ested dental caries 0 01/18/2009 Activ e latanoprost (XALATAN) 0.005 % ophthalmic solutionIndications :Glaucoma of both eyes, unspecified glaucoma type 1 Drop at bedtime. 2.5 mL 12 12/13/2016 Active B Ruqlekl-X-Idevp Acid Oral Tablet Take by mouth daily. [...] as of this encounter (statuses as of 11/23/2022) Active Problems Problem Noted Date Benign hypertension [...] as of this encounter (statuses as of 11/23/2022) Resolved Problems Problem Noted Date Resolved Date [...] as of this encounter (statuses as of 11/23/2022) Immunizations Name Administration Dates Next Due COVID-19 mRNA, LNP-s, No Pre serve, 2-Dose Series (Moderna) 06/19/2020,05/17/2020 COVID-19, mRNA, LNP-s, PF, B ooster, 100mcg/0.5mg (Moderna) 08/01/2021,01/25/2021 Covid-19, Mrna, Lnp-s, Pf, B ivalent, 30 Mcg, IM, 12 yrs and above ([employer]) 12/01/2021 Pneumococcal Conjugate Vacc, 13 Valent (Prevnar) [...] Influenza, Trivalen t, Adjuvanted, 65+ yrs 01/13/2019 TD - Tetanus/Diptheria [...] Office Visit Family Medicine Paul De La Rosa, DO [address] [place] [address] 03/30/2023 Office Visit Nephrology Héctor Stevens MD [address] [facility] [place] [address] Pending Results Name Type Priority Associated Diagnoses Date /Time TSH WITH FREE T4 IF INDICATED Lab Routine Acquired hypothyroidism 11/23/2022 9:58 AM EDT CBC WITH WBC DIFFERENTIAL Lab Routine Stage 3a chronic kidney disease (HCC) 11/23/2022 9:58 AM EDT PTH Lab Routine Stage 3a chronic kidney disease (HCC) 11/23/2022 9:58 AM EDT RENAL FUNCTION PANEL Lab Routine Stage 3a chronic kidney disease ([facility]) 11/23/2022 9:58 AM EDT CBC Lab Routine Stage 3a chronic kidney disease (HCC) 11/23/2022 9:58 AM EDT DIFFERENTIAL, AUTOMATED Lab Routine Stage 3a chronic kidney disease ([facility]) 11/23/2022 9:58 AM EDT PROTEIN/ CREATININE RATIO, URINE Lab Routine Stage 3a chronic kidney disease ([facility]) 11/23/2022 10:02 AM EDT Scheduled Procedures Name Priority Associated Diagnoses Date/Ti me COLONOSCOPY FLEXIBLE PROXIMA L DIAGNOSTIC Recall Special screening for malignant neoplasms, colon Health Maintenance Due Date Last Done Comments Influenza Vaccine (FLU shot) (#1) 2022 01/16/2022, 02/22/2021, 01/20/2020, Additional history exists GFR 11/23/2022 05/23/2022, 03/12, 07/11/2021, Additional history exists Depression Screening 02/13/2023 02/13/2022 CKD HGB USE SMARTSET 51128 03/24/202303/24, 07/11/2021, 01/05/2021, Additional history exists CKD PHOS USE SMARTSET 64368 03/24/202303/12, 07/11/2021, 01/05/2021, Additional history exists Albumin/Creatinine Ratio 05/24/2023 023, 01/06/2019, 03/28/2018, Additional history exists TSH [...] as of this encounter Visit Diagnoses Diagnosis Acquired hypothyroidism Unspecified hypothyroidism Stage 3a chronic kidney disease (HCC) documented in this encounter Advance Directives Documents on File Type Date Recorded Patient Pt Escort Expl anation Power of Manager Online 07/31/2006 Care Teams Band Cutting Machine Operator Relationship Specialty Start Date End Date Paul De La Rosa, DO [address] [facility] [place] [address] PCP - General Family Medicine 09/26/16 documented as of this encounter
--- OUTSIDE RECORDS SUMMARY | 2023-05-16 06:54 | External Medical Summary ---
Author Name Unknown Address Unknown Organization [id number]:[facility] [place] [address] Laboratory Report Ordering Provider Test Date Status CANDELARIA MORROW 11/23/2022 09:58:33 Final Observation Date Value Abnormality Reference (Units ) Status SYNC LEUKOCYTES IN BLOOD BY AUTOMATED COUNT 11/23/2022 09:58:33 6.33 4.00-10.80 (K/uL) Final Segs 11/23/2022 09:58:33 60.1 40.0-75.0 (%) Final Lymphs % 11/23/2022 09:58:33 21.0 18.0-42.0 (%) Final Monos 11/23/2022 09:58:33 11.2 Above high normal 1.0-11.0 (%) Final Eosinophils 11/23/2022 09:58:33 7.4 Above high normal 0.0-6.0 (%) Final Basos 11/23/2022 09:58:33 0.3 0.0-2.0 (%) Final Absolute Segs 11/23/2022 09:58:33 3.80 1.80-7.70 (K/uL) Final Lymphs, absolute 11/23/2022 09:58:33 1.33 1.00-4.80 (K/ul) Final Monos, Abs 11/23/2022 09:58:33 0.71 0.00-1.10 (K/uL) Final Eos, Abs 11/23/2022 09:58:33 0.47 0.00-0.70 (K/uL) Final Basos, Abs 11/23/2022 09:58:33 0.02 0.00-0.20 (K/uL) Final Performing Location [facility] [place] [address]
--- OUTSIDE RECORDS SUMMARY | 2023-05-16 06:54 | External Medical Summary ---
Author Name Unknown Address Unknown Organization [id number]:[facility] [place] - [address] [place] [address] Laboratory Report Ordering Provider Test Date Status CANDELARIA MORROW 11/23/2022 10:02:34 Final Normal: <150 mg/ g creatinine
High: 150-500 mg/g creatinine
Very High: >500 mg/g creatinine
Nephrotic: >3000 mg/g creatinine Observation Date Value Abnormality Reference (Units ) Status Protein/Creatinine [Ratio] in Urine 11/23/2022 10:02:34 100 <150 (mg/g ) Final Protein, Urine 11/23/2022 10:02:34 5 (mg/dL) Final Creatinine, Urine 11/23/2022 10:02:34 50 (mg/dL) Final Performing Location [facility] [place] [place] - [address] [place] [address]
--- OUTSIDE RECORDS SUMMARY | 2023-05-16 06:54 | External Medical Summary | Summary of Care ---
Author Name Unknown Organization [facility] Address [address] [place] [address] Phone [phone] Care Team Providers Care Support Services Rep Name Role Phone Paul De La Rosa DO Primary Care Provider [phone] Reason for Visit * Reason Comments Outpatient Testing Encounter Details Date Type Department Care Team Description 11/23/2022 Laboratory Laboratory [address] [facility] [address] [place] [address] [place], Lab Scenery [address] [place] [address] Acquired hypothyroidism; Stage 3a chronic kidney disease [...] bedtime. 2.5 mL 12 12/13/2016 Active B Yfsclxb-I-Kbkpp Acid Oral Tablet Take by mouth daily. [...] 30 Mcg, IM, 12 yrs and above ([employer]) 12/01/2021 Pneumococcal Conjugate Vacc, 13 Valent (Prevnar) [...] La Rosa, DO [address] [place] [address] 03/30/2023 Office Visit Nephrology Héctor Stevens MD 200 [facility] [place] [address] Pending Results Name Type Priority Associated Diagnoses Date /Time TSH WITH FREE T4 IF INDICATED Lab Routine Acquired hypothyroidism 11/23/2022 9:58 AM EDT CBC WITH WBC DIFFERENTIAL Lab Routine Stage 3a chronic kidney disease (HCC) 11/23/2022 9:58 AM EDT PTH Lab Routine Stage 3a chronic kidney disease (HCC) 11/23/2022 9:58 AM EDT RENAL FUNCTION PANEL Lab Routine Stage 3a chronic kidney disease ([facility]) 11/23/2022 9:58 AM EDT CBC Lab Routine Stage 3a chronic kidney disease (HCC) 11/23/2022 9:58 AM EDT DIFFERENTIAL, AUTOMATED Lab Routine Stage 3a chronic kidney disease ([facility]) 11/23/2022 9:58 AM EDT PROTEIN/ CREATININE RATIO, URINE Lab Routine Stage 3a chronic kidney disease ([facility]) 11/23/2022 10:02 AM EDT Scheduled Procedures Name Priority Associated Diagnoses Date/Ti me COLONOSCOPY FLEXIBLE PROXIMA L DIAGNOSTIC Recall Special screening for malignant neoplasms, colon Health Maintenance Due Date Last Done Comments Influenza Vaccine (FLU shot) (#1) 2022 01/16/2022, 02/22/2021, 01/20/2020, Additional history exists GFR 11/23/2022 05/23/2022, 03/12, 07/11/2021, Additional history exists Depression Screening 02/13/2023 02/13/2022 CKD HGB USE SMARTSET 12254 03/24/202303/24, 07/11/2021, 01/05/2021, Additional history exists CKD PHOS USE SMARTSET 91066 03/24/202303/12, 07/11/2021, 01/05/2021, Additional history exists Albumin/Creatinine [...] Documents on File Type Date Recorded Patient [employer] Expl anation Power of Buyer Renter 07/31/2006 Care Teams Support Services Rep Relationship Specialty Start Date End Date Paul De La Rosa, DO [address] [facility] [place] [address] PCP - General Family Medicine 09/26/16 documented as of this encounter
--- OUTSIDE RECORDS SUMMARY | 2023-05-16 06:54 | External Medical Summary ---
Author Name Unknown Address Unknown Organization [id number]:LABORATORY [facility] [place] - [address] [place] [address] Laboratory Report Ordering Provider Test Date Status LAINE NAQVI 11/23/2022 09:58:33 Final Observation Date Value Abnormality Reference (Units ) Status TSH 11/23/2022 09:58:33 1.07 0.27-4.20 (uIU/mL) Final Performing Location [facility] - [address] [place] [address]
--- NOTE | 2023-05-16 07:37 | XRay Report ---
LEFT SHOULDER 2 VIEWS CLINICAL HISTORY: Fall. Fracture. FINDINGS: 2 portable views of the left shoulder are obtained. The skeletal structures are osteopenic. There is an age-indeterminant impacted and comminuted fracture of the left humeral head and neck wit h displaced fragments. There is medial distraction and overriding of the humeral shaft. No additional acute fracture is identified. Arthritic change is seen at the glenohumeral and acromioclavicular brigid nts. Soft tissue edema is noted in the left arm. The imaged left lung parenchyma appears clear. IMPRESSION: Age indeterminant fracture of the left humeral head and neck as above. This may be acute to subacute. Correlate clinically. Electronically signed by: Amrit Delgado M.D. 05/16/2023 7:35 AM
[2023-05-16] MEDS: LEVOTHYROXINE SODIUM 112 MCG TABLET PO SCH (08:30)
--- NOTE | 2023-05-16 09:08 | Orthopedic Consultation ---
Date of Consultation May 16, 2023 Assessment & Plan (1) Proximal humeral fracture: IMPRESSION: Left proximal humerus fracture, impacted PLAN: RICE Will place in Ji fracture brace with a shoulder cap, sling for comfort. No heavy lifting. Pain control per primary service Continue care per primary service. Follow up in 2 weeks with x-rays in brace. Present on Admission?: Yes (2) Clavicular fracture: IMPRESSION: Right medial clavicle fracture PLAN: See above Sling for comfort Will obtain clavicle x-rays with serendipity views Activities as tolerated F/U in 2 weeks with x-rays 2 views right clavicle and Serendipity view Present on Admission?: Yes History of Present Illness Reason for Consultation: 1) Left proximal humerus fracture 2) Right medial clavicle fracture Requesting Physician: Bronson Orantes MD Attending Physician: Cheyenne Owens MD History of Present Illness Holli is a pleasant 78 yo female, RHD, who has PMH of hypertension, CKD 3, dyslipidemia, acquired hypothyroidism, chronic borderline hyponatremia and other medical problems listed below who presents after multiple falls at home and acute metabolic encephalopathy in setting of UTI and rhabdomyolysis, she was admitted to hospitalist service and I was consulted for further evaluation and treatment of the above fractures. She believes she injured her right clavicle after falling in March 2023 and injured her left shoulder when she fell at least 2 weeks ago. She thinks her most recent fall occurred when she did not pay attention while attempting to sit down. She denies any other injuries or pain. Allergies Allergy/AdvReac Type Severity Reaction Status Date / Time Penicillins Allergy Intermediate HX ASTHMA, Verified 05/15/23 16:52 MADE ASTHMA LIKE SYMPTOMS WORSE Home Medications Medication Instructions Recorded Confirmed Type aspirin 81 mg tablet,delayed 81 mg PO DAILY 04/25/19 05/15/23 History release (Adult Low Dose Aspirin) hydrochlorothiazide 25 mg tablet 25 mg PO QAM 04/25/19 05/15/23 History latanoprost 0.005 % eye drops 1 drops OPB QPM 04/25/19 05/15/23 History lisinopril 40 mg tablet 40 mg PO QAM 04/25/19 05/15/23 History atorvastatin 20 mg tablet 20 mg PO QAM 05/15/23 05/15/23 History carvedilol 12.5 mg tablet 12.5 mg PO BID 05/15/23 05/15/23 History cholecalciferol (vitamin D3) 25 25 mcg PO DAILY 05/15/23 05/15/23 History mcg (1,000 unit) capsule (Vitamin D3) levothyroxine 112 mcg tablet 112 mcg PO DAILYBB 05/15/23 05/15/23 History vitamin B complex-vitamin C-folic 1 tab PO DAILY 05/15/23 05/15/23 History acid 1 mg tablet Patient History Medical History CKD (chronic kidney disease), stage III Hypothyroidism History of colon polyps Endometrial cancer HX HYSTERECTOMY 20 YR AGO , HX RADIATION HTN (hypertension) Surgical History Status post EDY-BSO History of cataract surgery LEFT History of colonoscopy History of hysterectomy Family History Family/Other Hypertension Grandmother Breast cancer Brother Cancer Brother Cancer Social History Smoking Status: Former smoker Do You Dip or Chew Tobacco: No; Hx Alcohol Use: Yes Alcohol type: wine Preferred Language: Italian Communication Ability: Effective Visual Impairment: Limited Hearing Ability: Normal 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 2+ radial pulse. Motor to: median, radial, ulnar, AIN, PIN, musculocutaneous nerves intact. RUE: + TTP medial clavicle. + mild swelling SC joint. Shoulder ROM FF 160 degrees with mild crepitus at SC joint, without pain. LUE: Significant swelling & bruising shoulder down to elbow with various stages of healing green and purple discoloration. + TTP proximal humerus. + Bruising right forehead. Results & Data Vital Signs (Past 12 Hours) Vital Signs Pulse Pulse Resp BP BP Pulse Ox O2 Del Method 05/16/23 08:34 62 05/16/23 06:29 61 18 101/52 L 98 Room Air 05/16/23 02:37 66 18 104/56 L 98 Room Air 05/15/23 23:07 69 05/15/23 22:45 69 19 05/15/23 22:45 99/65 L 05/15/23 22:35 92/58 L 05/15/23 22:35 69 20 05/15/23 22:30 94/53 L 05/15/23 22:30 68 19 05/15/23 22:15 67 18 05/15/23 22:15 92/56 L 05/15/23 22:00 71 15 05/15/23 22:00 86/55 L 05/15/23 21:47 87/56 L 05/15/23 21:47 74 15 05/15/23 21:30 72 18 05/15/23 21:30 106/68 05/15/23 21:15 72 19 05/15/23 21:15 91/61 L 05/15/23 21:00 97/67 L 05/15/23 21:00 76 20 Laboratory Results Laboratory Results WBC 7.64 K/ul (4.8-10.8) 05/16/23 03:29 RBC 2.79 M/uL (4.20-5.40) L 05/16/23 03:29 Hgb 8.3 g/dl (12.0-16.0) L 05/16/23 03:29 Hct 25.2 % (37.0-47.0) L 05/16/23 03:29 MCV 90.3 fL (80.0-100.0) 05/16/23 03:29 MCH 29.7 pg (25.0-34.0) 05/16/23 03:29 MCHC 32.9 g/dL (32.0-36.0) 05/16/23 03:29 RDW Std Deviation 49.3 fL (36.4-46.3) H 05/16/23 03:29 RDW Coeff of Nanci 14.9 % (11.5-14.5) H 05/16/23 03:29 Plt Count 175 K/uL (130-400) 05/16/23 03:29 MPV 10.8 fL (9.4-12.4) 05/16/23 03:29 Immature Gran % (Auto) 0.4 % 05/15/23 16:00 Neut % (Auto) 80.6 % 05/15/23 16:00 Lymph % (Auto) 6.2 % 05/15/23 16:00 [place] % (Auto) 12.5 % 05/15/23 16:00 Eos % (Auto) 0.1 % 05/15/23 16:00 Baso % (Auto) 0.2 % 05/15/23 16:00 Neut # (Auto) 10.23 K/uL (1.40-6.50) H 05/15/23 16:00 Lymph # (Auto) 0.79 K/uL (1.20-3.40) L 05/15/23 16:00 [place] # (Auto) 1.59 K/uL (0.11-0.59) H 05/15/23 16:00 Eos # (Auto) 0.01 K/uL (0.00-0.50) 05/15/23 16:00 Baso # (Auto) 0.03 K/uL (0.00-0.20) 05/15/23 16:00 Immature Gran # (Auto) 0.05 K/uL (0.01-0.20) 05/15/23 16:00 PT 11.0 Seconds (9.0-12.0) 05/15/23 16:00 INR 1.0 (0.9-1.1) 05/15/23 16:00 APTT 22 Seconds (21-31) 05/15/23 16:00 PTT Ratio 0.8 05/15/23 16:00 Sodium 131 mmol/L (136-145) L 05/16/23 03:29 Potassium 3.3 mmol/L (3.5-5.1) L D 05/16/23 03:29 Chloride 102 mmol/L (98-107) 05/16/23 03:29 Carbon Dioxide 23 mmol/L (21-32) 05/16/23 03:29 Anion Gap 6 (3-11) 05/16/23 03:29 BUN 30 mg/dl (6-23) H 05/16/23 03:29 Creatinine 0.81 mg/dl (0.6-1.2) 05/16/23 03:29 Est Cr Clr Drug Dosing 56.9 ml/min 05/16/23 03:29 Est GFR ( Amer) 81.2 ml/min 05/16/23 03:29 Est GFR (Non-Af Amer) 70.1 ml/min 05/16/23 03:29 BUN/Creatinine Ratio 37.0 (10-20) H 05/16/23 03:29 Glucose 73 mg/dl (70-99(Fasting)) 05/16/23 03:29 Osmolality 275 mOsm/kg (280-300) L 05/15/23 17:31 Calcium 7.8 mg/dl (8.6-10.3) L 05/16/23 03:29 Magnesium 1.9 mg/dl (1.7-2.4) 05/15/23 16:00 Total Bilirubin 1.9 mg/dl (0.2-1.0) H 05/15/23 16:00 AST 53 U/L (13-39) H 05/15/23 16:00 ALT 29 U/L (7-52) 05/15/23 16:00 Alkaline Phosphatase 52 U/L (34-104) 05/15/23 16:00 Total Creatine Kinase 596 U/L (26-192) H 05/16/23 03:29 Troponin I High Sens 27.5 pg/ml (0-14) H 05/15/23 22:30 Total Protein 6.1 gm/dl (6.0-8.3) 05/15/23 16:00 Albumin 3.9 gm/dl (3.4-5.0) 05/15/23 16:00 Globulin 2.2 gm/dl (2.5-4.0) L 05/15/23 16:00 Albumin/Globulin Ratio 1.8 (0.9-2) 05/15/23 16:00 TSH 0.755 uIu/ml (0.300-4.500) 05/15/23 16:00 Urine Color Dark Yellow 05/15/23 19:37 Urine Appearance Cloudy (Clear) A 05/15/23 19:37 Urine pH 5.5 (4.5-7.5) 05/15/23 19:37 Ur Specific [place] 1.022 (1.000-1.030) 05/15/23 19:37 Urine Protein Trace (Negative) H 05/15/23 19:37 Urine Glucose (UA) Negative (Negative) 05/15/23 19:37 Urine Ketones Trace (Negative) H 05/15/23 19:37 Urine Blood Negative (Negative) 05/15/23 19:37 Urine Nitrite Positive (Negative) A 05/15/23 19:37 Urine Bilirubin Negative (Negative) 05/15/23 19:37 Urine Urobilinogen Negative (Negative) 05/15/23 19:37 Ur Leukocyte Esterase 2+ (Negative) H 05/15/23 19:37 Urine WBC (Auto) 10-30 /hpf (0-5) H 05/15/23 19:37 Urine RBC (Auto) 0-4 /hpf (0-4) 05/15/23 19:37 U Hyaline Cast (Auto) 1-5 /lpf (0-5) 05/15/23 19:37 U Epithel Cells (Auto) >30 /lpf (0-5) H 05/15/23 19:37 Urine Bacteria (Auto) 1+ (Negative) H 05/15/23 19:37 Urine Crystals Calcium Oxalate (None Prsent) A 05/15/23 19:37 Calcium Oxalate Crystal Present (None Prsent) A 05/15/23 19:37 Urine Yeast Budding (None Prsent) A 05/15/23 19:37 Urine Osmolality 645 mOsm/kg (500-800) 05/15/23 19:37 Urine Opiates Screen Neg (Neg) 05/15/23 19:37 Ur Methadone, Qual Neg (Neg) 05/15/23 19:37 Urine Barbiturates Neg (Neg) 05/15/23 19:37 Ur Phencyclidine (PCP) Neg (Neg) 05/15/23 19:37 U Amphetamin/Meth Scrn Neg (Neg) 05/15/23 19:37 MDMA (Ecstasy) Screen Neg (Neg) 05/15/23 19:37 U Benzodiazepines Scrn Neg (Neg) 05/15/23 19:37 Ur Cocaine Metabolite Neg (Neg) 05/15/23 19:37 U Marijuana (THC) Screen Neg (Neg) 05/15/23 19:37 Impressions Chest X-Ray 05/15/23 16:20 XR chest 1V not portable HISTORY: 78 years-old Female Weakness weakness COMPARISON: None TECHNIQUE: AP view of the chest FINDINGS: Cardiomediastinal and hilar silhouettes are within normal limits. The patient is mildly rotated. No pneumothorax, pleural effusion, airspace consolidation or overt pulmonary edema. Displaced and impacted comminuted left proximal humeral fracture. IMPRESSION: 1. No acute cardiopulmonary abnormality. 2. Displaced, comminuted and impacted left proximal humeral fracture, possibly subacute. ACT 112: Negative or not required by law. The above report was generated using voice recognition software. It may contain grammatical, syntax or spelling errors. Electronically signed by: Socrates Copeland M.D. 05/15/2023 4:[address] 05/15/23 17:26 CT SCAN OF THE CERVICAL SPINE CLINICAL HISTORY: Fall. COMPARISON STUDY: No priors. TECHNIQUE: CT scan of the cervical spine is performed from the skull base to the upper thoracic spine. Images are reviewed in the axial, sagittal, and coronal planes. IV contrast was not administered for this examination. A dose lowering technique was utilized adhering to the principles of ALARA. FINDINGS: Skeletal structures: The skeletal structures are osteopenia. There is no evidence of fracture or subluxation involving the cervical spine. Vertebral body height and alignment are maintained. Tiny anterior osteophytes are seen throughout. The odontoid process and lateral masses are intact. The atlantoaxial articulation is preserved noting mild productive degenerative change. The spinous processes appear intact. A comminuted fracture of the right clavicle is partially imaged. Intervertebral discs: There is mild multilevel disc space narrowing, greatest at C5-C6 and C6-C7. Central canal: A posterior disc osteophyte complex at C5-C6 may contribute to mild acquired compromise of the central canal. Soft tissues: The prevertebral and paraspinous soft tissues are within normal limits. The thyroid gland is atrophic. There is atherosclerotic calcification of the carotid bulbs. There is hemorrhage around a right clavicular fracture. Calvarium: The visualized calvarium at the skull base appears intact. Brain parenchyma: Partially visualized brain parenchyma at the skull base is within normal limits. Sinuses and mastoids: There is trace mucosal thickening in the right maxillary antrum. The mastoid air cells are well pneumatized. Lung apices: Clear as visualized. IMPRESSION: 1. There is no evidence of fracture or subluxation involving the cervical spine. 2. Osteopenia and spondylotic change as above. 3. A comminuted fracture of the right clavicular head is partially visualized. ACT 112: Negative or not required by law. Electronically signed by: Amrit Delgado M.D. 05/15/2023 6:56 PM Elbow X-Ray 05/15/23 17:26 LEFT ELBOW 2 VIEWS CLINICAL HISTORY: Fall. Left arm injury. FINDINGS: AP and lateral views of the left elbow are obtained. No prior studies are available for comparison at the time of dictation. The skeletal structures are osteopenic. There is no radiographic evidence of acute fracture or dislocation on this 2 view examination. No joint effusion is identified. Soft tissue edema is seen throughout the left arm. IMPRESSION: Soft tissue swelling with no radiographic evidence of acute fracture. Electronically signed by: Amrit Delgado M.D. 05/15/2023 7:[address] 05/15/23 17:26 CT SCAN OF THE BRAIN WITHOUT IV CONTRAST CLINICAL HISTORY: Fall. COMPARISON STUDY: No priors. TECHNIQUE: Unenhanced axial CT scan of the brain is performed from the vertex to the skull base. A dose lowering technique was utilized adhering to the principles of ALARA. CT DOSE: 1601.13 mGy.cm FINDINGS: Brain parenchyma: There is age-related involutional change noting advanced confluent subcortical and periventricular microangiopathic disease. There is no hemorrhage, mass effect, or evidence of acute territorial ischemia by CT cri teria. Frederick-white matter differentiation is preserved. No extra-axial fluid collection is seen. Ventricles, sulci, cisterns: Prominent secondary to involutional change. Intracranial vasculature: There is atherosclerotic calcification of the cavernous carotid and vertebral arteries. Calvarium: The skeletal structures are osteopenic. No depressed calvarial fracture is identified. Sinuses and mastoids: The visualized paranasal sinuses are clear. The mastoid air cells are well pneumatized. Orbits: The bony orbits are grossly intact. There are bilateral ocular lens implants. IMPRESSION: There is no hemorrhage, mass effect, or evidence of acute territorial ischemia by CT criteria. ACT 112: Negative or not required by law. Electronically signed by: Amrit Delgado M.D. 05/15/2023 6:38 PM Knee X-Ray 05/15/23 17:26 LEFT KNEE 3 VIEWS CLINICAL HISTORY: Fall. Left knee injury. FINDINGS: AP, crosstable lateral, and sunrise views of the left knee are obta ined. No prior studies are available for comparison at the time of dictation. The skeletal structures are osteopenic. No fracture is seen. There is moderate degenerative narrowing in the medial and patellofemoral compartments. Mild narrowing is seen in the lateral compartment. There is chondrocalcinosis within the medial and lateral components. There are marginal osteophytes, patellar enthesophytes, and degenerative beaking of the tibial spine. A small joint effusion is observed. There is soft tissue edema around the knee. IMPRESSION: 1. Soft tissue swelling and small joint effusion with no fracture identified. 2. Osteopenia with degenerative change and chondrocalcinosis as above. Electronically signed by: Amrit Delgado M.D. 05/15/2023 7:11 PM Shoulder X-Ray 05/15/23 20:10 LEFT SHOULDER 2 VIEWS CLINICAL HISTORY: Fall. Fracture. FINDINGS: 2 portable views of the left shoulder are obtained. The skeletal structures are osteopenic. There is an age-indeterminant impacted and comminuted fracture of the left humeral head and neck with displaced fragments. There is medial distraction and overriding of the humeral shaft. No additional acute fracture is identified. Arthritic change is seen at the glenohumeral and acromioclavicular joints. Soft tissue edema is noted in the left arm. The imaged left lung parenchyma appears clear. IMPRESSION: Age indeterminant fracture of the left humeral head and neck as above. This may be acute to subacute. Correlate clinically. Electronically signed by: Amrit Delgado M.D. 05/16/2023 7:35 AM
[2023-05-16] MEDS: MULTIVITAMIN TAB PO SCH (10:37)
[2023-05-16] MEDS: ATORVASTATIN 20 MG TAB PO SCH (10:37)
[2023-05-16] MEDS: CHOLECALCIFEROL 25 MCG (1000 UNITS) TAB PO SCH (10:37)
--- NOTE | 2023-05-16 11:49 | Hospitalist Progress Note ---
Date of Service May 16, 2023 Assessment & Plan (1) UTI (urinary tract infection): (2) Rhabdomyolysis: (3) Proximal humeral fracture: (4) Clavicular fracture: (5) Traumatic ecchymosis of left upper arm: (6) Acute metabolic encephalopathy: (7) Repeated falls: (8) CKD (chronic kidney disease), stage III: (9) HTN (hypertension): (10) Hypothyroidism: Plan This is a 78-year-old female with PMHx significant for hypertension, CKD 3, dyslipidemia, acquired hypothyroidism, chronic borderline hyponatremia who presents after multiple falls at home and acute metabolic encephalopathy in setting of UTI. Acute Metabolic Encephalopathy Likely in setting of UTI Mentation improving in ED, but unsure nature or details of falls CT head without acute intracranial abnormality Tox screen negative Biofire negative Chest XRAY with no pneumonia UA suggestive of infection, urine Cx currently growing gram positive cocci UTI (urinary tract infection) UA suggestive of infection Also noted calcium oxalate crystals and budding yeast urine Cx currently growing only gram positive cocci at this time Continue empiric Rocephin, follow urine culture Calcium Oxalate Crystals Abdominal Pain UA noting calcium oxalate crystals Pt with abdominal pain Hx of kidney stones Consider CT/abd pelvis for further evaluation CKD (chronic kidney disease), stage III [address] Stevens, h/o renal stones. Cr at baseline ~1. Continue to monitor with daily BMP Rhabdomyolysis CK >1000 in setting of falls Cr at baseline ~ 1 Initial HS trop mildly elevated at 35.7, downtrended to 27.5 No chest pain or acute EKG changes. Likely elevated in setting of rhabdo Continue IV fluids Continue to trend CK- currently downtrending Repeated falls Traumatic ecchymosis of left upper arm Clavicular fracture Proximal humeral fracture Has had at least 2 unwitnessed falls in the past few days with extensive bruising on L arm Lives alone and ambulates independently at baseline Evidence of displaced, comminuted and impacted left proximal humeral fracture, acute- subacute Comminuted R clavicle head fracture on CT cervical spine, XR right clavicle negative Ortho consulted, appreciate the following recs: For Left proximal humerus fracture: -RICE -Ji fracture brace with a shoulder cap, sling for comfort. -No heavy lifting. -Follow up in 2 weeks with x-rays in brace. For Clavicular fracture: -Sling for comfort -clavicle x-rays with serendipity views -Activities as tolerated -F/U in 2 weeks with x-rays 2 views right clavicle and Serendipity view Continue with pain control, fall precautions, PT/OT when able Anemia Hgb ~10 on admission currently downtrending Consider AM iron panel, ferritin, b12 and folate levels Osteopenia Noted Osteopenia on images DEXA Hx uncertain Consider Vit D levels Electrolyte Abnormalities Hyponatremia: Na 128 on admission. Urine osm, na levels. Gentle fluid hydration. Currently improving Hypomagnesemia: replete as needed Hypokalemia: replete as needed Hypophosphatemia: replete as needed Dietary consult for nutritional assessment. Appreciate recs HTN (hypertension) Home regimen includes carvedilol 12.5mg BID, hctz and lisinopril 40mg Given 1L NSS in ED but BP remains borderline low. Continue IV fluids overnight will hold antihypertensives Resume as able Hypothyroidism Continue levothyroxine Diet: HH DVT Ppx: SCDs in setting of anemia and bruising Code status: FULL PCP: Janes De La Rosa Dispo: Admitted to PCU Admission and Anticipated Discharge Date Admission Date: May 15, 2023 Subjective Pt was seen while she was still down in the emergency room. AAOx3. Denied acute concerns Still unable to move. Review of Systems Review of Systems: All systems reviewed & are unremarkable except as noted in Subjective Physical Exam Physical Exam: General: Alert, oriented. No acute distress Skin: Bruising on face and left shoulder/arm Psych: Appropriate mood and affect Neuro: difficulty with movements in the bed HEENT: Bruising on face Chest: Nontender to palpation. CV: RRR, Normal s1, s2. No murmurs appreciated Resp: Breath sounds clear bilaterally, no increased effort of breathing. Abdomen: Soft, mildly tender, nondistended. Extremities:bruising on lower extremities bilaterally. Results & Data Results & Data Vital Signs (Past 12 Hours) Vital Signs Pulse Pulse Resp BP Pulse Ox O2 Del Method 05/16/23 08:34 62 05/16/23 06:29 61 18 101/52 L 98 Room Air 05/16/23 02:37 66 18 104/56 L 98 Room Air Diagnostic Findings Chest X-Ray 05/15/23 16:20 XR chest 1V not portable HISTORY: 78 years-old Female Weakness weakness COMPARISON: None TECHNIQUE: AP view of the chest FINDINGS: Cardiomediastinal and hilar silhouettes are within normal limits. The patient is mildly rotated. No pneumothorax, pleural effusion, airspace consolidation or overt pulmonary edema. Displaced and impacted comminuted left proximal humeral fracture. IMPRESSION: 1. No acute cardiopulmonary abnormality. 2. Displaced, comminuted and impacted left proximal humeral fracture, possibly subacute. ACT 112: Negative or not required by law. The above report was generated using voice recognition software. It may contain grammatical, syntax or spelling errors. Electronically signed by: Socrates Copeland M.D. 05/15/2023 4:[address] 05/15/23 17:26 CT SCAN OF THE CERVICAL SPINE CLINICAL HISTORY: Fall. COMPARISON STUDY: No priors. TECHNIQUE: CT scan of the cervical spine is performed from the skull base to the upper thoracic spine. Images are reviewed in the axial, sagittal, and coronal planes. IV contrast was not administered for this examination. A dose lowering technique was utilized adhering to the principles of ALARA. FINDINGS: Skeletal structures: The skeletal structures are osteopenia. There is no evidence of fracture or subluxation involving the cervical spine. Vertebral body height and alignment are maintained. Tiny anterior osteophytes are seen throughout. The odontoid process and lateral masses are intact. The atlantoaxial articulation is preserved noting mild productive degenerative change. The spinous processes appear intact. A comminuted fracture of the right clavicle is partially imaged. Intervertebral discs: There is mild multilevel disc space narrowing, greatest at C5-C6 and C6-C7. Central canal: A posterior disc osteophyte complex at C5-C6 may contribute to mild acquired compromise of the central canal. Soft tissues: The prevertebral and paraspinous soft tissues are within normal li mits. The thyroid gland is atrophic. There is atherosclerotic calcification of the carotid bulbs. There is hemorrhage around a right clavicular fracture. Calvarium: The visualized calvarium at the skull base appears intact. Brain parenchyma: Partially visualized brain parenchyma at the skull base is within normal limits. Sinuses and mastoids: There is trace mucosal thickening in the right maxillary antrum. The mastoid air cells are well pneumatized. Lung apices: Clear as visualized. IMPRESSION: 1. There is no evidence of fracture or subluxation involving the cervical spine. 2. Osteopenia and spondylotic change as above. 3. A comminuted fracture of the right clavicular head is partially visualized. ACT 112: Negative or not required by law. Electronically signed by: Amrit Delgado M.D. 05/15/2023 6:56 PM Elbow X-Ray 05/15/23 17:26 LEFT ELBOW 2 VIEWS CLINICAL HISTORY: Fall. Left arm injury. FINDINGS: AP and lateral views of the left elbow are obtained. No prior studies are available for comparison at the time of dictation. The skeletal structures are osteopenic. There is no radiographic evidence of acute fracture or disloca tion on this 2 view examination. No joint effusion is identified. Soft tissue edema is seen throughout the left arm. IMPRESSION: Soft tissue swelling with no radiographic evidence of acute fracture. Electronically signed by: Amrit Delgado M.D. 05/15/2023 7:[address] 05/15/23 17:26 CT SCAN OF THE BRAIN WITHOUT IV CONTRAST CLINICAL HISTORY: Fall. COMPARISON STUDY: No priors. TECHNIQUE: Unenhanced axial CT scan of the brain is performed from the vertex to the skull base. A dose lowering technique was utilized adhering to the principles of ALARA. CT DOSE: 1601.13 mGy.cm FINDINGS: Brain parenchyma: There is age-related involutional change noting advanced confluent subcortical and periventricular microangiopathic disease. There is no hemorrhage, mass effect, or evidence of acute territorial ischemia by CT criteria. Frederick-white matter differentiation is preserved. No extra-axial fluid collection is seen. Ventricles, sulci, cisterns: Prominent secondary to involutional change. Intracranial vasculature: There is atherosclerotic calcification of the cavernous carotid and vertebral arteries. Calvarium: The skeletal structures are osteopenic. No depressed calvarial fracture is identified. Sinuses and mastoids: The visualized paranasal sinuses are clear. The mastoid air cells are well pneumatized. Orbits: The bony orbits are grossly intact. There are bilateral ocular lens implants. IMPRESSION: There is no hemorrhage, mass effect, or evidence of acute territorial ischemia by CT criteria. ACT 112: Negative or not required by law. Electronically signed by: Amrit Delgado M.D. 05/15/2023 6:38 PM Knee X-Ray 05/15/23 17:26 LEFT KNEE 3 VIEWS CLINICAL HISTORY: Fall. Left knee injury. FINDINGS: AP, crosstable lateral, and sunrise views of the left knee are obtained. No prior studies are available for comparison at the time of dictation. The skeletal structures are osteopenic. No fracture is seen. There is moderate degenerative narrowing in the medial and patellofemoral compartments. Mild narrowing is seen in the lateral compartment. There is chondrocalcinosis within the medial and lateral components. There are marginal osteophytes, patellar enthesophytes, and degenerative beaking of the tibial spine. A small joint effusion is observed. There is soft tissue edema around the knee. IMPRESSION: 1. Soft tissue swelling and small joint effusion with no fracture identified. 2. Osteopenia with degenerative change and chondrocalcinosis as above. Electronically signed by: Amrit Delgado M.D. 05/15/2023 7:11 PM Shoulder X-Ray 05/15/23 20:10 LEFT SHOULDER 2 VIEWS CLINICAL HISTORY: Fall. Fracture. FINDINGS: 2 portable views of the left shoulder are obtained. The skeletal structures are osteopenic. There is an age-indeterminant impacted and comminuted fracture of the left humeral head and neck with displaced fragments. There is medial distraction and overriding of the humeral shaft. No additional acute fracture is identified. Arthritic change is seen at the glenohumeral and acromioclavicular joints. Soft tissue edema is noted in the left arm. The imaged left lung parenchyma appears clear. IMPRESSION: Age indeterminant fracture of the left humeral head and neck as above. This may be acute to subacute. Correlate clinically. Electronically signed by: Amrit Delgado M.D. 05/16/2023 7:35 AM Clavicle X-Ray 05/16/23 10:02 XR clavicle 2 view RT CLINICAL HISTORY: fracture TECHNIQUE: 2 views of the right clavicle were obtained. Comparison: None available at the time of this dictation. FINDINGS: There is no evidence of acute fracture, subluxation, or dislocation. The overlying soft tissues are unremarkable. The visualized portions of the lungs are clear. IMPRESSION: No acute abnormality in particular no evidence of clavicular fracture. ACT 112: Negative or not required by law. Electronically signed by: Willis Mitchell M.D. 05/16/2023 12:29 PM
[2023-05-16] MEDS: POTASSIUM CHLORIDE 20 MEQ/15 ML UDC ONE (11:56)
[2023-05-16] MEDS: POTASSIUM CHLORIDE 20 MEQ/15 ML UDC PO STA (12:01)
--- NOTE | 2023-05-16 12:30 | XRay Report ---
XR clavicle 2 view RT CLINICAL HISTORY: fracture TECHNIQUE: 2 views of the right clavicle were obtained. Comparison: None available at the time of this dictation. FINDINGS: There is no evidence of acute fracture, subluxation, or dislocation. The overlying soft tissues are u nremarkable. The visualized portions of the lungs are clear. IMPRESSION: No acute abnormality in particular no evidence of clavicular fracture. ACT 112: Negative or not required by law. Electronically signed by: Willis Mitchell M.D. 05/16/2023 12:29 PM
[2023-05-17 06:48] LABS: Hematocrit (blood only) 26.1 % (37.0-47.0); Hemoglobin 8.5 g/dl (12.0-16.0); Mean Corpuscular Hemoglobin 29.5 pg (25.0-34.0); Mean Corpuscular Hgb Conc 32.6 g/dL (32.0-36.0); Mean Corpuscular Volume 90.6 fL (80.0-100.0); Mean Platelet Volume 10.7 fL (9.4-12.4); Platelet Count 182 K/uL (130-400); RDW Coefficient of Variation 15.3 % (11.5-14.5); RDW Standard Deviation 50.4 fL (36.4-46.3); Red Blood Count 2.88 M/uL (4.20-5.40); White Blood Count 7.27 K/ul (4.8-10.8)
[2023-05-17 07:06] LABS: BUN Creatinine Ratio 31.4 (10-20); Calcium 8.1 mg/dl (8.6-10.3); Creatinine Clr Calc Pharmacy 54.4 ml/min; Est GFR (African American) 75.5 ml/min; Est GFR (Non-African American) 65.2 ml/min; Magnesium 1.6 mg/dl (1.7-2.4); Potassium 4.2 mmol/L (3.5-5.1)
--- NOTE | 2023-05-17 16:16 | Orthopedic Progress Note ---
Date of Service May 17, 2023 Assessment & Plan (1) Proximal humeral fracture: Plan: IMPRESSION: Left proximal humerus fracture, impacted PLAN: RICE Ji brace with shoulder cap in place and comfortable. No heavy lifting. Pain control per primary service Continue care per primary service. Follow up in 2 weeks with x-rays in brace. (2) Clavicular fracture: Plan: IMPRESSION: Right medial clavicle fracture PLAN: See above Sling for comfort Will obtain clavicle x-rays with serendipity views Activities as tolerated F/U in 2 weeks with x-rays 2 views right clavicle and Serendipity view Admission and Anticipated Discharge Date Admission Date: May 15, 2023 Subjective 78-year-old female seen for follow-up of a left proximal humerus fracture and right clavicular fracture after sustaining a fall a few days ago. Patient states that she "blacked out." When she woke she was on the floor and is not sure how long she had been lying there. Patient states that she has no pain over the right clavicle and that it is an old injury. She states that most of her pain is in her left shoulder. She denies chest pain, shortness of breath, fever, chills, sweats, nausea, vomiting, diarrhea, difficulty voiding. She also denies headache, blurred vision, dizziness, lightheadedness or any neck pain. Review of Systems Review of Systems: All systems reviewed & are unremarkable except as noted in Subjective Physical Exam Physical Exam: General: Patient has a moderate-sized ecchymotic contusion to the mid forehead as well as multiple superficial abrasions to her nose. She has some visible edema under both eyes but no ecchymosis. Right clavicle: Patient has no tenderness over the entire clavicle or the AC joint or sternoclavicular joint. There is no palpable defect. There is no edema, erythema or ecchymosis. Left shoulder: Ji brace is in place. Patient states is very comfortable. I did not attempt to remove the brace. Patient is able to reach terminal flexion extension her elbow. Has full range of motion of her wrist. Appropriate dexterity of her fingers. She is able to to make complete fist. Protection Consultant strength is equal bilaterally. She is able to detect light sensation to touch over the pads of all digits. Results & Data Vital Signs (Past 12 Hours) Vital Signs Temp Pulse Pulse Resp BP Pulse Ox O2 Del Method 05/17/23 15:10 36.9 C 73 16 130/82 95 Room Air 05/17/23 11:17 36.8 C 70 19 133/77 97 Room Air 05/17/23 10:45 Room Air 05/17/23 07:51 36.4 C L 70 19 129/74 97 Room Air 05/17/23 07:14 66 Diagnostic Findings Laboratory Results WBC 7.27 K/ul (4.8-10.8) 05/17/23 05:37 RBC 2.88 M/uL (4.20-5.40) L 05/17/23 05:37 Hgb 8.5 g/dl (12.0-16.0) L 05/17/23 05:37 Hct 26.1 % (37.0-47.0) L 05/17/23 05:37 MCV 90.6 fL (80.0-100.0) 05/17/23 05:37 MCH 29.5 pg (25.0-34.0) 05/17/23 05:37 MCHC 32.6 g/dL (32.0-36.0) 05/17/23 05:37 RDW Std Deviation 50.4 fL (36.4-46.3) H 05/17/23 05:37 RDW Coeff of Nanci 15.3 % (11.5-14.5) H 05/17/23 05:37 Plt Count 182 K/uL (130-400) 05/17/23 05:37 MPV 10.7 fL (9.4-12.4) 05/17/23 05:37 Immature Gran % (Auto) 0.4 % 05/15/23 16:00 Neut % (Auto) 80.6 % 05/15/23 16:00 Lymph % (Auto) 6.2 % 05/15/23 16:00 Band[place] % (Auto) 12.5 % 05/15/23 16:00 Eos % (Auto) 0.1 % 05/15/23 16:00 Baso % (Auto) 0.2 % 05/15/23 16:00 Neut # (Auto) 10.23 K/uL (1.40-6.50) H 05/15/23 16:00 Lymph # (Auto) 0.79 K/uL (1.20-3.40) L 05/15/23 16:00 Bandera # (Auto) 1.59 K/uL (0.11-0.59) H 05/15/23 16:00 Eos # (Auto) 0.01 K/uL (0.00-0.50) 05/15/23 16:00 Baso # (Auto) 0.03 K/uL (0.00-0.20) 05/15/23 16:00 Immature Gran # (Auto) 0.05 K/uL (0.01-0.20) 05/15/23 16:00 PT 11.0 Seconds (9.0-12.0) 05/15/23 16:00 INR 1.0 (0.9-1.1) 05/15/23 16:00 APTT 22 Seconds (21-31) 05/15/23 16:00 PTT Ratio 0.8 05/15/23 16:00 Sodium 131 mmol/L (136-145) L 05/17/23 05:37 Potassium 4.2 mmol/L (3.5-5.1) D 05/17/23 05:37 Chloride 103 mmol/L (98-107) 05/17/23 05:37 Carbon Dioxide 24 mmol/L (21-32) 05/17/23 05:37 Anion Gap 4 (3-11) 05/17/23 05:37 BUN 27 mg/dl (6-23) H 05/17/23 05:37 Creatinine 0.86 mg/dl (0.6-1.2) 05/17/23 05:37 Est Cr Clr Drug Dosing 54.4 ml/min 05/17/23 05:37 Est GFR ( Amer) 75.5 ml/min 05/17/23 05:37 Est GFR (Non-Af Amer) 65.2 ml/min 05/17/23 05:37 BUN/Creatinine Ratio 31.4 (10-20) H 05/17/23 05:37 Glucose 75 mg/dl (70-99(Fasting)) 05/17/23 05:37 Osmolality 275 mOsm/kg (280-300) L 05/15/23 17:31 Calcium 8.1 mg/dl (8.6-10.3) L 05/17/23 05:37 Phosphorus 2.0 mg/dl (2.5-4.9) L 05/17/23 05:37 Magnesium 1.6 mg/dl (1.7-2.4) L 05/17/23 05:37 Total Bilirubin 1.9 mg/dl (0.2-1.0) H 05/15/23 16:00 AST 53 U/L (13-39) H 05/15/23 16:00 ALT 29 U/L (7-52) 05/15/23 16:00 Alkaline Phosphatase 52 U/L (34-104) 05/15/23 16:00 Total Creatine Kinase 596 U/L (26-192) H 05/16/23 03:29 Troponin I High Sens 27.5 pg/ml (0-14) H 05/15/23 22:30 Total Protein 6.1 gm/dl (6.0-8.3) 05/15/23 16:00 Albumin 3.9 gm/dl (3.4-5.0) 05/15/23 16:00 Globulin 2.2 gm/dl (2.5-4.0) L 05/15/23 16:00 Albumin/Globulin Ratio 1.8 (0.9-2) 05/15/23 16:00 TSH 0.755 uIu/ml (0.300-4.500) 05/15/23 16:00 Urine Color Dark Yellow 05/15/23 19:37 Urine Appearance Cloudy (Clear) A 05/15/23 19:37 Urine pH 5.5 (4.5-7.5) 05/15/23 19:37 Ur Specific [place] 1.022 (1.000-1.030) 05/15/23 19:37 Urine Protein Trace (Negative) H 05/15/23 19:37 Urine Glucose (UA) Negative (Negative) 05/15/23 19:37 Urine Ketones Trace (Negative) H 05/15/23 19:37 Urine Blood Negative (Negative) 05/15/23 19:37 Urine Nitrite Positive (Negative) A 05/15/23 19:37 Urine Bilirubin Negative (Negative) 05/15/23 19:37 Urine Urobilinogen Negative (Negative) 05/15/23 19:37 Ur Leukocyte Esterase 2+ (Negative) H 05/15/23 19:37 Urine WBC (Auto) 10-30 /hpf (0-5) H 05/15/23 19:37 Urine RBC (Auto) 0-4 /hpf (0-4) 05/15/23 19:37 U Hyaline Cast (Auto) 1-5 /lpf (0-5) 05/15/23 19:37 U Epithel Cells (Auto) >30 /lpf (0-5) H 05/15/23 19:37 Urine Bacteria (Auto) 1+ (Negative) H 05/15/23 19:37 Urine Crystals Calcium Oxalate (None Prsent) A 05/15/23 19:37 Calcium Oxalate Crystal Present (None Prsent) A 05/15/23 19:37 Urine Yeast Budding (None Prsent) A 05/15/23 19:37 Urine Osmolality 645 mOsm/kg (500-800) 05/15/23 19:37 Urine Opiates Screen Neg (Neg) 05/15/23 19:37 Ur Methadone, Qual Neg (Neg) 05/15/23 19:37 Urine Barbiturates Neg (Neg) 05/15/23 19:37 Ur Phencyclidine (PCP) Neg (Neg) 05/15/23 19:37 U Amphetamin/Meth Scrn Neg (Neg) 05/15/23 19:37 MDMA (Ecstasy) Screen Neg (Neg) 05/15/23 19:37 U Benzodiazepines Scrn Neg (Neg) 05/15/23 19:37 Ur Cocaine Metabolite Neg (Neg) 05/15/23 19:37 U Marijuana (THC) Screen Neg (Neg) 05/15/23 19:37 Impressions Chest X-Ray 05/15/23 16:20 XR chest 1V not portable HISTORY: 78 years-old Female Weakness weakness COMPARISON: None TECHNIQUE: AP view of the chest FINDINGS: Cardiomediastinal and hilar silhouettes are within normal limits. The patient is mildly rotated. No pneumothorax, pleural effusion, airspace consolidation or overt pulmonary edema. Displaced and impacted comminuted left proximal humeral fracture. IMPRESSION: 1. No acute cardiopulmonary abnormality. 2. Displaced, comminuted and impacted left proximal humeral fracture, possibly subacute. ACT 112: Negative or not required by law. The above report was generated using voice recognition software. It may contain grammatical, syntax or spelling errors. Electronically signed by: Socrates Copeland M.D. 05/15/2023 4:[address] 05/15/23 17:26 CT SCAN OF THE CERVICAL SPINE CLINICAL HISTORY: Fall. COMPARISON STUDY: No priors. TECHNIQUE: CT scan of the cervical spine is performed from the skull base to the upper thoracic spine. Images are reviewed in the axial, sagittal, and coronal planes. IV contrast was not administered for this examination. A dose lowering technique was utilized adhering to the principles of ALARA. FINDINGS: Skeletal structures: The skeletal structures are osteopenia. There is no evidence of fracture or subluxation involving the cervical spine. Vertebral body height and alignment are maintained. Tiny anterior osteophytes are seen throughout. The odontoid process and lateral masses are intact. The atlantoaxial articulation is preserved noting mild productive degenerative change. The spinous processes appear intact. A comminuted fracture of the right clavicle is partially imaged. Intervertebral discs: There is mild multilevel disc space narrowing, greatest at C5-C6 and C6-C7. Central canal: A posterior disc osteophyte complex at C5-C6 may contribute to mild acquired compromise of the central canal. Soft tissues: The prevertebral and paraspinous soft tissues are within normal limits. The thyroid gland is atrophic. There is atherosclerotic calcification of the carotid bulbs. There is hemorrhage around a right clavicular fracture. Calvarium: The visualized calvarium at the skull base appears intact. Brain parenchyma: Partially visualized brain parenchyma at the skull base is within normal limits. Sinuses and mastoids: There is trace mucosal thickening in the right maxillary antrum. The mastoid air cells are well pneumatized. Lung apices: Clear as visualized. IMPRESSION: 1. There is no evidence of fracture or subluxation involving the cervical spine. 2. Osteopenia and spondylotic change as above. 3. A comminuted fracture of the right clavicular head is partially visualized. ACT 112: Negative or not required by law. Electronically signed by: Amrit Delgado M.D. 05/15/2023 6:56 PM Elbow X-Ray 05/15/23 17:26 LEFT ELBOW 2 VIEWS CLINICAL HISTORY: Fall. Left arm injury. FINDINGS: AP and lateral views of the left elbow are obtained. No prior studies are available for comparison at the time of dictation. The skeletal structures are osteopenic. There is no radiographic evidence of acute fracture or dislocation on this 2 view examination. No joint effusion is identified. Soft tissue edema is seen throughout the left arm. IMPRESSION: Soft tissue swelling with no radiographic evidence of acute fracture. Electronically signed by: Amrit Delgado M.D. 05/15/2023 7:[address] 05/15/23 17:26 CT SCAN OF THE BRAIN WITHOUT IV CONTRAST CLINICAL HISTORY: Fall. COMPARISON STUDY: No priors. TECHNIQUE: Unenhanced axial CT scan of the brain is performed from the vertex to the skull base. A dose lowering technique was utilized adhering to the principles of ALARA. CT DOSE: 1601.13 mGy.cm FINDINGS: Brain parenchyma: There is age-related involutional change noting advanced confluent subcortical and periventricular microangiopathic disease. There is no hemorrhage, mass effect, or evidence of acute territorial ischemia by CT criteria. Frederick-white matter differentiation is preserved. No extra-axial fluid collection is seen. Ventricles, sulci, cisterns: Prominent secondary to involutional change. Intracranial vasculature: There is atherosclerotic calcification of the cavernous carotid and vertebral arteries. Calvarium: The skeletal structures are osteopenic. No depressed calvarial fracture is identified. Sinuses and mastoids: The visualized paranasal sinuses are clear. The mastoid air cells are well pneumatized. Orbits: The bony orbits are grossly intact. There are bilateral ocular lens implants. IMPRESSION: There is no hemorrhage, mass effect, or evidence of acute territorial ischemia by CT criteria. ACT 112: Negative or not required by law. Electronically signed by: Amrit Delgado M.D. 05/15/2023 6:38 PM Knee X-Ray 05/15/23 17:26 LEFT KNEE 3 VIEWS CLINICAL HISTORY: Fall. Left knee injury. FINDINGS: AP, crosstable lateral, and sunrise views of the left knee are obtained. No prior studies are available for comparison at the time of dictation. The skeletal structures are osteopenic. No fracture is seen. There is moderate degenerative narrowing in the medial and patellofemoral compartments. Mild narrowing is seen in the lateral compartment. There is chondrocalcinosis within the medial and lateral components. There are marginal osteophytes, patellar enthesophytes, and degenerative beaking of the tibial spine. A small joint effusion is observed. There is soft tissue edema around the knee. IMPRESSION: 1. Soft tissue swelling and small joint effusion with no fracture identified. 2. Osteopenia with degenerative change and chondrocalcinosis as above. Electronically signed by: Amrit Delgado M.D. 05/15/2023 7:11 PM Shoulder X-Ray 05/15/23 20:10 LEFT SHOULDER 2 VIEWS CLINICAL HISTORY: Fall. Fracture. FINDINGS: 2 portable views of the left shoulder are obtained. The skeletal structures are osteopenic. There is an age-indeterminant impacted and comminuted fracture of the left humeral head and neck with displaced fragments. There is medial distraction and overriding of the humeral shaft. No additional acute fracture is identified. Arthritic change is seen at the glenohumeral and acromioclavicular joints. Soft tissue edema is noted in the left arm. The imaged left lung parenchyma appears clear. IMPRESSION: Age indeterminant fracture of the left humeral head and neck as above. This may be acute to subacute. Correlate clinically. Electronically signed by: Amrit Delgado M.D. 05/16/2023 7:35 AM Clavicle X-Ray 05/16/23 10:02 XR clavicle 2 view RT CLINICAL HISTORY: fracture TECHNIQUE: 2 views of the right clavicle were obtained. Comparison: None available at the time of this dictation. FINDINGS: There is no evidence of acute fracture, subluxation, or dislocation. The overlying soft tissues are unremarkable. The visualized portions of the lungs are clear. IMPRESSION: No acute abnormality in particular no evidence of clavicular fracture. ACT 112: Negative or not required by law. Electronically signed by: Willis Mitchell M.D. 05/16/2023 12:29 PM
[2023-05-17] MEDS ORDERED: SODIUM PHOSPHATE 3 MMOL/1 ML INFUSION IV STA (17:22)
[2023-05-17] MEDS: MAGNESIUM SULFATE / D5W 1 GM/100 ML BAG IV SCH (18:04)
[2023-05-17] MEDS: SODIUM PHOSPHATE 15 MMOL in SODIUM CHLORIDE 0.9% 250 ML IV ONE (18:04)
--- NOTE | 2023-05-17 20:54 | Hospitalist Progress Note ---
Date of Service May 17, 2023 Assessment & Plan (1) UTI (urinary tract infection): (2) Rhabdomyolysis: (3) Proximal humeral fracture: (4) Clavicular fracture: (5) Traumatic ecchymosis of left upper arm: (6) Acute metabolic encephalopathy: (7) Repeated falls: (8) CKD (chronic kidney disease), stage III: (9) HTN (hypertension): (10) Hypothyroidism: Plan This is a 78-year-old female with PMHx significant for hypertension, CKD 3, dyslipidemia, acquired hypothyroidism, chronic borderline hyponatremia who presents after multiple falls at home and acute metabolic encephalopathy in setting of UTI. Acute Metabolic Encephalopathy Likely in setting of UTI Mentation improving in ED, but unsure nature or details of falls CT head without acute intracranial abnormality Tox screen negative Biofire negative Chest XRAY with no pneumonia UA suggestive of infection, urine Cx currently growing gram positive cocci Continue with IV Rocephin at this time Delirium precautions. Frequent reorientation, avoid sedating medications Pt currently AAOx3, mentation improved. UTI (urinary tract infection) UA suggestive of infection Also noted calcium oxalate crystals and budding yeast urine Cx currently growing only gram positive cocci at this time Continue empiric Rocephin, follow urine culture Calcium Oxalate Crystals Abdominal Pain UA noting calcium oxalate crystals Pt with abdominal pain Hx of kidney stones CT/abd pelvis ordered and pending CKD (chronic kidney disease), stage III Follow[address] Dr[address] Stevens, h/o renal stones. Cr at baseline ~1. Continue to monitor with daily BMP Currently wnl Rhabdomyolysis CK >1000 in setting of falls Cr at baseline ~ 1 Initial HS trop mildly elevated at 35.7, downtrended to 27.5 No chest pain or acute EKG changes. Likely elevated in setting of rhabdo Continue IV fluids Continue to trend CK- currently downtrending Repeated falls Traumatic ecchymosis of left upper arm Clavicular fracture Proximal humeral fracture Has had at least 2 unwitnessed falls in the past few days with extensive bruising on L arm Lives alone and ambulates independently at baseline Evidence of displaced, comminuted and impacted left proximal humeral fracture, acute- subacute Comminuted R clavicle head fracture on CT cervical spine, XR right clavicle negative Ortho consulted, appreciate the following recs: For Left proximal humerus fracture: -RICE -Ji fracture brace with a shoulder cap, sling for comfort. -No heavy lifting. -Follow up in 2 weeks with x-rays in brace. For Clavicular fracture: -Sling for comfort -clavicle x-rays with serendipity views -Activities as tolerated -F/U in 2 weeks with x-rays 2 views right clavicle and Serendipity view Continue with pain control, fall precautions, PT/OT when able Anemia Hgb ~10 on admission currently downtrending AM iron panel, ferritin, b12 and folate levels ordered Osteopenia Noted Osteopenia on images DEXA Hx uncertain AM Vit D levels With Hx of fracture + osteopenia, might need to start osteoporosis rx Electrolyte Abnormalities Hyponatremia: Na 128 on admission. Urine osm, na levels. Gentle fluid hydration. Currently improving Hypomagnesemia: replete as needed Hypokalemia: replete as needed Hypophosphatemia: replete as needed Dietary consult for nutritional assessment. Appreciate recs Aspiration Event Pt notes possible aspiration event on 05/16 States that she was eating and talking at the same time Speech consult placed Currently on RA Consider chest XRAY for further eval On rocephin as above, consider a po Augmentin switch to cover for anaerobes + gram positives noted on Cx HTN (hypertension) Home regimen includes carvedilol 12.5mg BID, hctz and lisinopril 40mg Given 1L NSS in ED but BP remains borderline low. Continue IV fluids will hold antihypertensives Resume as BP tolerates Hypothyroidism Continue levothyroxine Diet: HH DVT Ppx: SCDs in setting of anemia and bruising Code status: FULL PCP: Janes De La Rosa Dispo: Admitted to PCU Admission and Anticipated Discharge Date Admission Date: May 15, 2023 Subjective Pt was seen in her room. States that she had a possible aspiration event while trying to talk and eat. Was feeling better at the time of discussion. Review of Systems Review of Systems: All systems reviewed & are unremarkable except as noted in Subjective Physical Exam Physical Exam: General: Alert, oriented. No acute distress Skin: Bruising on face and left shoulder/arm Psych: Appropriate mood and affect Neuro: difficulty with movements in the bed HEENT: Bruising on face Chest: Nontender to palpation. CV: RRR, Normal s1, s2. No murmurs appreciated Resp: Breath sounds clear bilaterally, no increased effort of breathing. Abdomen: Soft, mildly tender, nondistended. Extremities:bruising on lower extremities bilaterally. Results & Data Results & Data Vital Signs (Past 12 Hours) Vital Signs Temp Pulse Pulse Resp BP Pulse Ox O2 Del Method 05/17/23 15:10 36.9 C 73 16 130/82 95 Room Air 05/17/23 15:00 79 05/17/23 11:17 36.8 C 70 19 133/77 97 Room Air 05/17/23 10:45 Room Air 05/17/23 07:51 36.4 C L 70 19 129/74 97 Room Air 05/17/23 07:14 66
[2023-05-17] MEDS: OPTIRAY 320 100ml IV ONE (21:17)
--- NOTE | 2023-05-17 21:42 | CT Scan Report ---
Exam(s): CT ABDOMEN + PELVIS With Contrast IV Amt: 91 ml opti 320 EXAM: CT Abdomen and Pelvis With Intravenous Contrast CLINICAL HISTORY: Reason for exam: abd pain, calcium ox crystal r/o kidney stones. TECHNIQUE: Axial computed tomography images of the abdomen and pelvis with intravenous contrast. CTDI is 19.77 mGy and DLP is 925.21 mGy-cm. Automated exposure control was utilized for the study. A dose lowering technique was utilized adhering to the principles of ALARA. CONTRAST: Patient received 91 ml opti 320 of IV contrast COMPARISON: No relevant prior studies available. FINDINGS: Lung bases: Mild lung base emphysemas changes with bibasilar atelectasis versus scarring. ABDOMEN: Liver: See below. Gallbladder and bile ducts: Distended gallbladder with mild intrahepatic and extra hepatic ductal dilatation. No calcified stones. Pancreas: Unremarkable. No mass. No ductal dilation. Spleen: Unremarkable. No splenomegaly. Adrenals: Unremarkable. No mass. Kidneys and ureters: There is severe right renal cortical thinning with severe hydronephrosis, this is likely chronic. Multiple calcifications within the right renal pelvis measuring up to 13 mm. Stomach and bowel: Unremarkable. No obstruction. No mucosal thickening. PELVIS: Appendix: Moderate stool throughout the colon and rectum. No invasion of the appendix. No secondary CT signs of acute appendicitis. Bladder: Resendiz catheter within the urinary bladder. Reproductive: Unremarkable as visualized. ABDOMEN and PELVIS: Intraperitoneal space: Unremarkable. No free air. No significant fluid collection. Bones/joints: Moderate multilevel degenerative changes of the lumbar spine with grade 1 anterolisthesis at L4/L5. No acute fracture. No dislocation. Soft tissues: Unremarkable. Vasculature: Severe atherosclerotic disease. No abdominal aortic aneurysm. Lymph nodes: Unremarkable. No enlarged lymph nodes. IMPRESSION: 1. There is severe right renal cortical thinning with severe hydronephrosis, this is likely chronic. Tiny subcentimeter left renal cyst. No follow-up imaging required. 2. Distended gallbladder with mild intrahepatic and extra hepatic ductal dilatation. Discussed with Jose Garcia PA-C on 05/16 21:40 (-05:00) Discussed with Dr. Garcia on 05/16 21:40 (-05:00) Electronically signed by: Nadja Harris MD 05/17/23 21:40 PM
[2023-05-18] MEDS: metroNIDAZOLE 500 MG/100 ML BAG IV SCH (00:18)
[2023-05-18 06:40] LABS: Hematocrit (blood only) 23.8 % (37.0-47.0); Hemoglobin 7.8 g/dl (12.0-16.0); Mean Corpuscular Hemoglobin 29.9 pg (25.0-34.0); Mean Corpuscular Hgb Conc 32.8 g/dL (32.0-36.0); Mean Corpuscular Volume 91.2 fL (80.0-100.0); Mean Platelet Volume 10.2 fL (9.4-12.4); Platelet Count 175 K/uL (130-400); RDW Coefficient of Variation 15.4 % (11.5-14.5); RDW Standard Deviation 50.6 fL (36.4-46.3); Red Blood Count 2.61 M/uL (4.20-5.40); White Blood Count 5.88 K/ul (4.8-10.8)
[2023-05-18 07:07] LABS: Albumin Globulin Ratio 1.8 (0.9-2); Albumin Level 2.8 gm/dl (3.4-5.0); BUN Creatinine Ratio 21.1 (10-20); Bilirubin,Total 0.9 mg/dl (0.2-1.0); Calcium 7.9 mg/dl (8.6-10.3); Creatinine Clr Calc Pharmacy 64.7 ml/min; Est GFR (African American) 95.2 ml/min; Est GFR (Non-African American) 82.2 ml/min; Globulin 1.6 gm/dl (2.5-4.0); Magnesium 1.9 mg/dl (1.7-2.4); Phosphorus 2.5 mg/dl (2.5-4.9); Potassium 3.8 mmol/L (3.5-5.1); Total Protein 4.4 gm/dl (6.0-8.3)
[2023-05-18 07:26] LABS: Ferritin 107.9 ng/ml (8-388)
[2023-05-18 07:29] LABS: Folate (Folic Acid),Ser orPlas 13.03 ng/ml (>5.38)
--- NOTE | 2023-05-18 08:15 | Gastrointestinal Consultation ---
Date of Consultation May 18, 2023 Assessment & Plan (1) Dilation of biliary tract: (2) Proximal humeral fracture: (3) Rhabdomyolysis: Plan This is a 78 y/o female with PMhx CKD, HTN, DLD, admitted after presenting 05/14 with multiple falls at home, UTI, NIDA, found to have rhabdomyolysis, clavicular and proximal humeral fracture, extensive bruising on L arm. We are consulted for incidentally found distended GB and IHDD/EHDD seen on CTAP. Total bili was initially 1.9 but is now normal at 0.9; AST only very slightly elevated at 42, otherwise LFTs normal with ALT 29, ALP 35. HGB 10->7.8 today (reports no GIB; likely from recent fall/fracture/bruising). US ABD today shows distended GB w/ sludge, but no stones, no IHDD; CBD noted to be up to 1.2 cm. Abd soft, nontender. - Recommended and offered MRCP for further evaluation of the biliary tree; she would rather hold off on this given her recent fractures. This is reasonable given she has no GI symptoms and her labs do not show evidence of biliary obstruction. - Should have eventual biliary imaging to make sure no mass/stone/stricture near the CBD. - If she develops biliary colic such as abd pain, n/v would consider general surgery eval for cholecystectomy and more urgent biliary imaging/repeat LFTs Thank you for allowing us to participate in the care of this patient. Please call with any acute changes, questions or concerns. Please see addendum below with additional recommendation from my supervising physician. Supervising Physician Co-Signing Physician Notes I personally saw and evaluated the patient on 05/18/2023 with Lili Bryan PA-C and agree with her findings and plan of care. Abdomen soft and non-tender. 78 y/o F admitted after multiple falls at home resulting in a humeral and clavicular facture as well as rhabdomyolysis. GI was consulted for a distended gallbladder and concern for biliary dilation. She had an initial CT abd/pelvis yesterday which showed a distended gallbladder with mild intrahepatic and extrahepatic biliary dilation. A follow up abdominal ultrasound was done today showing a distended gallbladder with sludge but no intrahepatic biliary dilation and CBD of 1.2 cm. No CBD stone seen. LFTs are all normal other than a mildly elevated AST to 42. Bilirubin and ALP normal. Suspicion for any biliary pathology is low. Would recommend an MRCP to better evaluate the biliary tree however patient reports she does not want to do this at this current time given her recent fractures. Would continue to trend LFTs and if they start to rise obtain MRCP. Sarah Mariscal DO Gastroenterology and Hepatology History of Present Illness Reason for Consultation: distended gallbladder, hepatic intraductal dilatio Requesting Physician: Dr. Owens Attending Physician: Cheyenne Owens MD History of Present Illness This is a 78 y/o female with PMhx CKD, HTN, DLD, admitted after presenting 3/ with multiple falls at home, UTI, NIDA, found to have rhabdomyolysis, clavicular and proximal humeral fracture, extensive bruising on L arm. We are consulted for distended GB and IHDD/EHDD seen on CTAP; with severe likely chronic hydronephrosis. No stones seen. Total bili was initially 1.9 but is now 0.9; AST 42, ALT 29, ALP 35. HGB 10->7.8 today. WBC 12->5.8 today. INR WNL. Cr WNL. Had BM yesterday, brown. US ABD today shows distended GB w/ sludge, no stones, no IHDD; CBD up to 1.2 cm. She denies any GI symptoms. No abd pain, nausea, vomiting, jaundice, icterus, weight loss, dark urine, bajwa stools, melena, hematochezia, hematemesis, CP, SOB. No ETOH, tobacco, NSAIDs. Colonoscopy 2014: - One 6 mm polyp in the ascending colon. Resected and retrieved. - Diverticulosis from sigmoid to transverse colon. - Otherwise normal to the terminal ileum, with retroflexed views of the ascending colon and rectum. Repeat 10 years Colonoscopy 2004: - Two 6 mm polyps in the transverse colon and in the distal ascending colon. Resected and retrieved. - Diverticulosis. - Internal hemorrhoids were found. Allergies Allergy/AdvReac Type Severity Reaction Status Date / Time Penicillins Allergy Intermediate HX ASTHMA, Verified 05/15/23 16:52 MADE ASTHMA LIKE SYMPTOMS WORSE Home Medications Medication Instructions Recorded Confirmed Type aspirin 81 mg tablet,delayed 81 mg PO DAILY 04/25/19 05/15/23 History release (Adult Low Dose Aspirin) hydrochlorothiazide 25 mg tablet 25 mg PO QAM 04/25/19 05/15/23 History latanoprost 0.005 % eye drops 1 drops OPB QPM 04/25/19 05/15/23 History lisinopril 40 mg tablet 40 mg PO QAM 04/25/19 05/15/23 History atorvastatin 20 mg tablet 20 mg PO QAM 05/15/23 05/15/23 History carvedilol 12.5 mg tablet 12.5 mg PO BID 05/15/23 05/15/23 History cholecalciferol (vitamin D3) 25 25 mcg PO DAILY 05/15/23 05/15/23 History mcg (1,000 unit) capsule (Vitamin D3) levothyroxine 112 mcg tablet 112 mcg PO DAILYBB 05/15/23 05/15/23 History vitamin B complex-vitamin C-folic 1 tab PO DAILY 05/15/23 05/15/23 History acid 1 mg tablet Patient History Medical History CKD (chronic kidney disease), stage III Hypothyroidism History of colon polyps Endometrial cancer HX HYSTERECTOMY 20 YR AGO , HX RADIATION HTN (hypertension) Surgical History Status post EDY-BSO History of cataract surgery LEFT History of colonoscopy History of hysterectomy Family History Family/Other Hypertension Grandmother Breast cancer Brother Cancer Brother Cancer Social History Smoking Status: Never smoker Second Hand Exposure: No; Do You Dip or Chew Tobacco: No; Hx Alcohol Use: No Hx Substance Use: No Preferred Language: Setswana Communication Ability: Effective Visual Impairment: Limited Hearing Ability: Normal Patient Companion Required: No Beliefs That Will Affect Care: None marital status: Single Current Living Situation: Alone current occupational status: retired Other Information That Helps Us Care for You: No Feels Safe at Home: Yes Safety Concerns: Feels Safe At This Time Assistive Devices: Cane and Other Review of Systems Review of Systems: All systems reviewed & are unremarkable except as noted in HPI & below Physical Exam Constitutional: well developed, well nourished and comfortable; no acute d istress Eyes: Sclera anicteric, no conjunctival injection ENMT: moist mucous membranes, no pallor Neck: trachea midline supple Respiratory: normal respiratory effort, lungs clear to auscultation Cardiovascular: RRR, no murmur, no edema Gastrointestinal (Abdomen): normal bowel sounds, soft, nontender, no hepatosplenomegaly Inspection/Auscultation: abdomen not distended Musculoskeletal: Extensive bruising left arm, left hand; left arm in a brace. R forehead with bruising Skin: no rashes, warm and dry Neurologic: alert and oriented x 3; doesn't recall all the details surrounding her recent falls Psychiatric: normal mood and affect Results & Data Vital Signs (Past 12 Hours) Vital Signs Temp Pulse Pulse Resp BP Pulse Ox O2 Del Method 05/18/23 03:50 36.8 C 69 18 111/72 95 Room Air 05/18/23 00:00 67 05/17/23 23:34 36.7 C 73 18 117/76 96 Room Air Laboratory Results 05/18/23 Range/Units 05:36 WBC 5.88 (4.8-10.8) K/ul RBC 2.61 L (4.20-5.40) M/uL Hgb 7.8 L (12.0-16.0) g/dl Hct 23.8 L (37.0-47.0) % MCV 91.2 (80.0-100.0) fL MCH 29.9 (25.0-34.0) pg MCHC 32.8 (32.0-36.0) g/dL RDW Std Deviation 50.6 H (36.4-46.3) fL RDW Coeff of Nanci 15.4 H (11.5-14.5) % Plt Count 175 (130-400) K/uL MPV 10.2 (9.4-12.4) fL Sodium 133 L (136-145) mmol/L Potassium 3.8 (3.5-5.1) mmol/L Chloride 104 (98-107) mmol/L Carbon Dioxide 26 (21-32) mmol/L Anion Gap 3 (3-11) BUN 15 (6-23) mg/dl Creatinine 0.71 (0.6-1.2) mg/dl Est Cr Clr Drug Dosing 64.7 ml/min Est GFR ( Amer) 95.2 ml/min Est GFR (Non-Af Amer) 82.2 ml/min BUN/Creatinine Ratio 21.1 H (10-20) Glucose 81 (70-99(Fasting)) mg/dl Calcium 7.9 L (8.6-10.3) mg/dl Phosphorus 2.5 (2.5-4.9) mg/dl Magnesium 1.9 (1.7-2.4) mg/dl Iron 127 (35-150) mcg/dl TIBC 259 (250-450) mcg/dl Unsaturated IBC 132 L (155-355) mcg/dl Transferrin % Sat 49 (15-50) % Ferritin 107.9 (8-388) ng/ml Total Bilirubin 0.9 (0.2-1.0) mg/dl AST 42 H (13-39) U/L ALT 29 (7-52) U/L Alkaline Phosphatase 35 (34-104) U/L Total Creatine Kinase 754 H (26-192) U/L Total Protein 4.4 L (6.0-8.3) gm/dl Albumin 2.8 L (3.4-5.0) gm/dl Globulin 1.6 L (2.5-4.0) gm/dl Albumin/Globulin Ratio 1.8 (0.9-2) Vitamin B12 984 H (180-914) pg/ml 25-OH Vitamin D Total 11.8 L (30-100) ng/ml Folate 13.03 (>5.38) ng/ml Diagnostic Findings CTAP: FINDINGS: Lung bases: Mild lung base emphysemas changes with bibasilar atelectasis versus scarring. ABDOMEN: Liver: See below. Gallbladder and bile ducts: Distended gallbladder with mild intrahepatic and extra hepatic ductal dilatation. No calcified stones. Pancreas: Unremarkable. No mass. No ductal dilation. Spleen: Unremarkable. No splenomegaly. Adrenals: Unremarkable. No mass. Kidneys and ureters: There is severe right renal cortical thinning with severe hydronephrosis, this is likely chronic. Multiple calcifications within the right renal pelvis measuring up to 13 mm. Stomach and bowel: Unremarkable. No obstruction. No mucosal thickening. PELVIS: Appendix: Moderate stool throughout the colon and rectum. No invasion of the appendix. No secondary CT signs of acute appendicitis. Bladder: Resendiz catheter within the urinary bladder. Reproductive: Unremarkable as visualized. ABDOMEN and PELVIS: Intraperitoneal space: Unremarkable. No free air. No significant fluid collection. Bones/joints: Moderate multilevel degenerative changes of the lumbar spine with grade 1 anterolisthesis at L4/L5. No acute fracture. No dislocation. Soft tissues: Unremarkable. Vasculature: Severe atherosclerotic disease. No abdominal aortic aneurysm. Lymph nodes: Unremarkable. No enlarged lymph nodes. IMPRESSION: 1. There is severe right renal cortical thinning with severe hydronephrosis, this is likely chronic. Tiny subcentimeter left renal cyst. No follow-up imaging required. 2. Distended gallbladder with mild intrahepatic and extra hepatic ductal dilatation. US ABD: FINDINGS: Liver: The liver is normal in size and echotexture. There is no intrahepatic biliary ductal dilatation. The main portal vein is patent. Gallbladder: The gallbladder is distended and contains biliary sludge. No shadow gallstones are identified. There is trace pericholecystic fluid. No gallbladder wall thickening is identified. A sonographic Acevedo's sign is reportedly absent. The common bile duct measures up to 1.2 cm in diameter. Pancreas: Visualized portions of the pancreatic head and body are normal in appearance. Right kidney: Survey images of the right kidney shows severe cortical atrophy and severe hydronephrosis. Ascites: There is trace perihepatic fluid. Pleural spaces: There is a trace right pleural effusion. IMPRESSION: 1. Distended gallbladder containing sludge. No shadowing stones are identified and there is no sonographic evidence of acute cholecystitis. 2. Severely atrophic and hydronephrotic right kidney. 3. There is no intrahepatic biliary ductal dilatation. 4. Trace pericholecystic fluid is noted and there is a small right pleural effusion.
--- NOTE | 2023-05-18 09:15 | Ultrasound Report ---
ULTRASOUND RIGHT UPPER QUADRANT ABDOMEN CLINICAL HISTORY: Generalized abdominal pain. Distended gallbladder. COMPARISON STUDY: Abdominal CT dated 05/17/2023 TECHNIQUE: Real-time, grayscale, and color flow sonography of the right upper quadrant of the abdomen was performed. Images are reviewed in the transverse and longitudinal planes. FINDINGS: Liver: The liver is normal in size and echotexture. There is no intrahepatic biliary ductal dilatatio n. The main portal vein is patent. Gallbladder: The gallbladder is distended and contains biliary sludge. No shadow gallstones are ident ified. There is trace pericholecystic fluid. No gallbladder wall thickening is identified. A sonograp hic Acevedo's sign is reportedly absent. The common bile duct measures up to 1.2 cm in diameter. Pancreas: Visualized portions of the pancreatic head and body are normal in appearance. Right kidney: Survey images of the right kidney shows severe cortical atrophy and severe hydronephros is. Ascites: There is trace perihepatic fluid. Pleural spaces: There is a trace right pleural effusion. IMPRESSION: 1. Distended gallbladder containing sludge. No shadowing stones are identified and there is no sonogr aphic evidence of acute cholecystitis. 2. Severely atrophic and hydronephrotic right kidney. 3. There is no intrahepatic biliary ductal dilatation. 4. Trace pericholecystic fluid is noted and there is a small right pleural effusion. ACT 112: Negative or not required by law. Electronically signed by: Amrit Delgado M.D. 05/18/2023 9:12 AM
--- NOTE | 2023-05-18 13:57 | Hospitalist Progress Note ---
Date of Service May 18, 2023 Assessment & Plan (1) UTI (urinary tract infection): (2) Rhabdomyolysis: (3) Proximal humeral fracture: (4) Clavicular fracture: (5) Traumatic ecchymosis of left upper arm: (6) Acute metabolic encephalopathy: (7) Repeated falls: (8) CKD (chronic kidney disease), stage III: (9) HTN (hypertension): (10) Hypothyroidism: Plan This is a 78-year-old female with PMHx significant for hypertension, CKD 3, dyslipidemia, acquired hypothyroidism, chronic borderline hyponatremia who presents after multiple falls at home and acute metabolic encephalopathy in setting of UTI. Acute Metabolic Encephalopathy Likely in setting of UTI Mentation improving in ED, but unsure nature or details of falls CT head without acute intracranial abnormality Tox screen negative Biofire negative Chest XRAY with no pneumonia UA suggestive of infection, urine Cx currently growing coag neg staph not saprophyticus Rocephin (3 days of rx) switched to macrobid to which urine is susceptible Delirium precautions. Frequent reorientation, avoid sedating medications Pt currently AAOx3, mentation improved. UTI (urinary tract infection) UA suggestive of infection Also noted calcium oxalate crystals and budding yeast urine Cx currently growing growing coag neg staph not saprophyticus Rocephin switched to macrobid to which urine is susceptible Day 4 of 7 Calcium Oxalate Crystals Abdominal Pain UA noting calcium oxalate crystals Pt with abdominal pain Hx of kidney stones CT/abd pelvis ordered -noted severe R hydronephrosis -Distended gallbladder with mild intrahepatic and extra hepatic ductal dilatation. Severe R hydronephrosis Seen on CT abd/pelvis Per pt, known Hx, follows with nephrology. No Urology Urology consult placed, appreciate recs -no acute intervention -Urology outpt f/u Distended gallbladder with mild intrahepatic and extra hepatic ductal dilatation noted on CT abd/pelvis LFTs initially elevated on admission US gallbladder ordered noting no acute cholecystitis GI consulted, appreciate recs -discussion of MRCP, pt declining Continue with po cipro and flagyl Day 1 of 10 CKD (chronic kidney disease), stage III [address] Stevens, h/o renal stones. Cr at baseline ~1. Continue to monitor with daily BMP Currently wnl Rhabdomyolysis CK >1000 in setting of falls Cr at baseline ~ 1 Initial HS trop mildly elevated at 35.7, downtrended to 27.5 No chest pain or acute EKG changes. Likely elevated in setting of rhabdo Continue IV fluids Continue to trend CK- currently downtrending Repeated falls Traumatic ecchymosis of left upper arm Clavicular fracture Proximal humeral fracture Has had at least 2 unwitnessed falls in the past few days with extensive bruising on L arm Lives alone and ambulates independently at baseline Evidence of displaced, comminuted and impacted left proximal humeral fracture, acute- subacute Comminuted R clavicle head fracture on CT cervical spine, XR right clavicle negative Ortho consulted, appreciate the following recs: For Left proximal humerus fracture: -RICE -Ji fracture brace with a shoulder cap, sling for comfort. -No heavy lifting. -Follow up in 2 weeks with x-rays in brace. For Clavicular fracture: -Sling for comfort -clavicle x-rays with serendipity views -Activities as tolerated -F/U in 2 weeks with x-rays 2 views right clavicle and Serendipity view Continue with pain control, fall precautions, PT/OT when able Anemia Hgb ~10 on admission currently downtrending iron panel, ferritin, b12 and folate levels currently supplemented Osteopenia Noted Osteopenia on images DEXA Hx uncertain Vit D level low, increased to D3 125mcg With Hx of fracture + osteopenia, might need to start osteoporosis rx Electrolyte Abnormalities Hyponatremia: Na 128 on admission. Urine osm, na levels. Gentle fluid hydration. Currently improving Hypomagnesemia: replete as needed Hypokalemia: replete as needed Hypophosphatemia: replete as needed Dietary consult for nutritional assessment. Appreciate recs Aspiration Event Pt notes possible aspiration event on 05/16 States that she was eating and talking at the same time Speech consult placed Currently on RA Consider chest XRAY for further eval On Flagyl and cipro as noted above HTN (hypertension) Home regimen includes carvedilol 12.5mg BID, hctz and lisinopril 40mg Given 1L NSS in ED but BP remains borderline low. Continue IV fluids Coreg resumed, as well as as HCTZ and lisinopril Continue to monitor BP Hypothyroidism Continue levothyroxine Diet: HH DVT Ppx: SCDs in setting of anemia and bruising Code status: FULL PCP: Janes De La Rosa Dispo: PT recommending rehab Admission and Anticipated Discharge Date Admission Date: May 15, 2023 Subjective States that she was feeling much better. Able to sit up on her own now and move her head. Has been keeping notes as to who came in to see her. Denied acute concerns. Review of Systems Review of Systems: All systems reviewed & are unremarkable except as noted in Subjective Physical Exam Physical Exam: General: Alert, oriented. No acute distress Skin: Bruising on face and left shoulder/arm Psych: Appropriate mood and affect Neuro: difficulty with movements in the bed HEENT: Bruising on face Chest: Nontender to palpation. CV: RRR, Normal s1, s2. No murmurs appreciated Resp: Breath sounds clear bilaterally, no increased effort of breathing. Abdomen: Soft, mildly tender, nondistended. Extremities:bruising on lower extremities bilaterally. left shoulder in sling Results & Data Results & Data Vital Signs (Past 12 Hours) Vital Signs Temp Pulse Resp BP Pulse Ox O2 Del Method 05/18/23 11:28 36.7 C 67 16 125/70 93 Room Air 05/18/23 09:25 Room Air 05/18/23 03:50 36.8 C 69 18 111/72 95 Room Air Diagnostic Findings Chest X-Ray 05/15/23 16:20 XR chest 1V not portable HISTORY: 78 years-old Female Weakness weakness COMPARISON: None TECHNIQUE: AP view of the chest FINDINGS: Cardiomediastinal and hilar silhouettes are within normal limits. The patient is mildly rotated. No pneumothorax, pleural effusion, airspace consolidation or overt pulmonary edema. Displaced and impacted comminuted left proximal humeral fracture. IMPRESSION: 1. No acute cardiopulmonary abnormality. 2. Displaced, comminuted and impacted left proximal humeral fracture, possibly subacute. ACT 112: Negative or not required by law. The above report was generated using voice recognition software. It may contain grammatical, syntax or spelling errors. Electronically signed by: Socrates Copeland M.D. 05/15/2023 4:[address] 05/15/23 17:26 CT SCAN OF THE CERVICAL SPINE CLINICAL HISTORY: Fall. COMPARISON STUDY: No priors. TECHNIQUE: CT scan of the cervical spine is performed from the skull base to the upper thoracic spine. Images are reviewed in the axial, sagittal, and coronal planes. IV contrast was not administered for this examination. A dose lowering technique was utilized adhering to the principles of ALARA. FINDINGS: Skeletal structures: The skeletal structures are osteopenia. There is no evidence of fracture or subluxation involving the cervical spine. Vertebral body height and alignment are maintained. Tiny anterior osteophytes are seen throughout. The odontoid process and lateral masses are intact. The atlantoaxial articulation is preserved noting mild productive degenerative change. The spinous processes appear intact. A comminuted fracture of the right clavicle is partially imaged. Intervertebral discs: There is mild multilevel disc space narrowing, greatest at C5-C6 and C6-C7. Central canal: A posterior disc osteophyte complex at C5-C6 may contribute to mild acquired compromise of the central canal. Soft tissues: The prevertebral and paraspinous soft tissues are within normal limits. The thyroid gland is atrophic. There is atherosclerotic calcification of the carotid bulbs. There is hemorrhage around a right clavicular fracture. Calvarium: The visualized calvarium at the skull base appears intact. Brain parenchyma: Partially visualized brain parenchyma at the skull base is within normal limits. Sinuses and mastoids: There is trace mucosal thickening in the right maxillary antrum. The mastoid air cells are well pneumatized. Lung apices: Clear as visualized. IMPRESSION: 1. There is no evidence of fracture or subluxation involving the cervical spine. 2. Osteopenia and spondylotic change as above. 3. A comminuted fracture of the right clavicular head is partially visualized. ACT 112: Negative or not required by law. Electronically signed by: Amrit Delgado M.D. 05/15/2023 6:56 PM Elbow X-Ray 05/15/23 17:26 LEFT ELBOW 2 VIEWS CLINICAL HISTORY: Fall. Left arm injury. FINDINGS: AP and lateral views of the left elbow are obtained. No prior studies are available for comparison at the time of dictation. The skeletal structures are osteopenic. There is no radiographic evidence of acute fracture or dislocation on this 2 view examination. No joint effusion is identified. Soft tissue edema is seen throughout the left arm. IMPRESSION: Soft tissue swelling with no radiographic evidence of acute fracture. Electronically signed by: Amrit Delgado M.D. 05/15/2023 7:[address] 05/15/23 17:26 CT SCAN OF THE BRAIN WITHOUT IV CONTRAST CLINICAL HISTORY: Fall. COMPARISON STUDY: No priors. TECHNIQUE: Unenhanced axial CT scan of the brain is performed from the vertex to the skull base. A dose lowering technique was utilized adhering to the principles of ALARA. CT DOSE: 1601.13 mGy.cm FINDINGS: Brain parenchyma: There is age-related involutional change noting advanced confluent subcortical and periventricular microangiopathic disease. There is no hemorrhage, mass effect, or evidence of acute territorial ischemia by CT criteria. Frederick-white matter differentiation is preserved. No extra-axial fluid collection is seen. Ventricles, sulci, cisterns: Prominent secondary to involutional change. Intracranial vasculature: There is atherosclerotic calcification of the cavernous carotid and vertebral arteries. Calvarium: The skeletal structures are osteopenic. No depressed calvarial fracture is identified. Sinuses and mastoids: The visualized paranasal sinuses are clear. The mastoid air cells are well pneumatized. Orbits: The bony orbits are grossly intact. There are bilateral ocular lens implants. IMPRESSION: There is no hemorrhage, mass effect, or evidence of acute territorial ischemia by CT criteria. ACT 112: Negative or not required by law. Electronically signed by: Amrit Delgado M.D. 05/15/2023 6:38 PM Knee X-Ray 05/15/23 17:26 LEFT KNEE 3 VIEWS CLINICAL HISTORY: Fall. Left knee injury. FINDINGS: AP, crosstable lateral, and sunrise views of the left knee are obtained. No prior studies are available for comparison at the time of dictation. The skeletal structures are osteopenic. No fracture is seen. There is moderate degenerative narrowing in the medial and patellofemoral compartments. Mild narrowing is seen in the lateral compartment. There is chondrocalcinosis within the medial and lateral components. There are marginal osteophytes, patellar enthesophytes, and degenerative beaking of the tibial spine. A small joint effusion is observed. There is soft tissue edema around the knee. IMPRESSION: 1. Soft tissue swelling and small joint effusion with no fracture identified. 2. Osteopenia with degenerative change and chondrocalcinosis as above. Electronically signed by: Amrit Delgado M.D. 05/15/2023 7:11 PM Shoulder X-Ray 05/15/23 20:10 LEFT SHOULDER 2 VIEWS CLINICAL HISTORY: Fall. Fracture. FINDINGS: 2 portable views of the left shoulder are obtained. The skeletal structures are osteopenic. There is an age-indeterminant impacted and comminuted fracture of the left humeral head and neck with displaced fragments. There is medial distraction and overriding of the humeral shaft. No additional acute fracture is identified. Arthritic change is seen at the glenohumeral and acromioclavicular joints. Soft tissue edema is noted in the left arm. The imaged left lung parenchyma appears clear. IMPRESSION: Age indeterminant fracture of the left humeral head and neck as above. This may be acute to subacute. Correlate clinically. Electronically signed by: Amrit Delgado M.D. 05/16/2023 7:35 AM Clavicle X-Ray 05/16/23 10:02 XR clavicle 2 view RT CLINICAL HISTORY: fracture TECHNIQUE: 2 views of the right clavicle were obtained. Comparison: None available at the time of this dictation. FINDINGS: There is no evidence of acute fracture, subluxation, or dislocation. The overlying soft tissues are unremarkable. The visualized portions of the lungs are clear. IMPRESSION: No acute abnormality in particular no evidence of clavicular fracture. ACT 112: Negative or not required by law. Electronically signed by: Willis Mitchell M.D. 05/16/2023 12:29 PM Abdomen/Pelvis CT 05/17/23 20:10 Exam(s): CT ABDOMEN + PELVIS With Contrast IV Amt: 91 ml opti 320 EXAM: CT Abdomen and Pelvis With Intravenous Contrast CLINICAL HISTORY: Reason for exam: abd pain, calcium ox crystal r/o kidney stones. TECHNIQUE: Axial computed tomography images of the abdomen and pelvis with intravenous contrast. CTDI is 19.77 mGy and DLP is 925.21 mGy-cm. Automated exposure control was utilized for the study. A dose lowering technique was utilized adhering to the principles of ALARA. CONTRAST: Patient received 91 ml opti 320 of IV contrast COMPARISON: No relevant prior studies available. FINDINGS: Lung bases: Mild lung base emphysemas changes with bibasilar atelectasis versus scarring. ABDOMEN: Liver: See below. Gallbladder and bile ducts: Distended gallbladder with mild intrahepatic and extra hepatic ductal dilatation. No calcified stones. Pancreas: Unremarkable. No mass. No ductal dilation. Spleen: Unremarkable. No splenomegaly. Adrenals: Unremarkable. No mass. Kidneys and ureters: There is severe right renal cortical thinning with severe hydronephrosis, this is likely chronic. Multiple calcifications within the right renal pelvis measuring up to 13 mm. Stomach and bowel: Unremarkable. No obstruction. No mucosal thickening. PELVIS: Appendix: Moderate stool throughout the colon and rectum. No invasion of the appendix. No secondary CT signs of acute appendicitis. Bladder: Resendiz catheter within the urinary bladder. Reproductive: Unremarkable as visualized. ABDOMEN and PELVIS: Intraperitoneal space: Unremarkable. No free air. No significant fluid collection. Bones/joints: Moderate multilevel degenerative changes of the lumbar spine with grade 1 anterolisthesis at L4/L5. No acute fracture. No dislocation. Soft tissues: Unremarkable. Vasculature: Severe atherosclerotic disease. No abdominal aortic aneurysm. Lymph nodes: Unremarkable. No enlarged lymph nodes. IMPRESSION: 1. There is severe right renal cortical thinning with severe hydronephrosis, this is likely chronic. Tiny subcentimeter left renal cyst. No follow-up imaging required. 2. Distended gallbladder with mild intrahepatic and extra hepatic ductal dilatation. Discussed with Jose Garcia PA-C on 05/16 21:40 (-05:00) Discussed with Dr. Garcia on 05/16 21:40 (-05:00) Electronically signed by: Nadja Harris MD 05/17/23 21:40 PM Gallbladder Ultrasound 05/18/23 00:00 ULTRASOUND RIGHT UPPER QUADRANT ABDOMEN CLINICAL HISTORY: Generalized abdominal pain. Distended gallbladder. COMPARISON STUDY: Abdominal CT dated 05/17/2023 TECHNIQUE: Real-time, grayscale, and color flow sonography of the right upper quadrant of the abdomen was performed. Images are reviewed in the transverse and longitudinal planes. FINDINGS: Liver: The liver is normal in size and echotexture. There is no intrahepatic biliary ductal dilatation. The main portal vein is patent. Gallbladder: The gallbladder is distended and contains biliary sludge. No shadow gallstones are identified. There is trace pericholecystic fluid. No gallbladder wall thickening is identified. A sonographic Acevedo's sign is reportedly absent. The common bile duct measures up to 1.2 cm in diameter. Pancreas: Visualized portions of the pancreatic head and body are normal in appearance. Right kidney: Survey images of the right kidney shows severe cortical atrophy and severe hydronephrosis. Ascites: There is trace perihepatic fluid. Pleural spaces: There is a trace right pleural effusion. IMPRESSION: 1. Distended gallbladder containing sludge. No shadowing stones are identified and there is no sonographic evidence of acute cholecystitis. 2. Severely atrophic and hydronephrotic right kidney. 3. There is no intrahepatic biliary ductal dilatation. 4. Trace pericholecystic fluid is noted and there is a small right pleural effusion. ACT 112: Negative or not required by law. Electronically signed by: Amrit Delgado M.D. 05/18/2023 9:12 AM
--- NOTE | 2023-05-18 14:51 | Urology Consultation ---
Date of Consultation May 18, 2023 Assessment & Plan (1) UTI (urinary tract infection): (2) Hydronephrosis: Plan 78yo F admitted after presenting 3/5 with multiple falls at home, UTI, NIDA, found to have rhabdomyolysis, clavicular and proximal humeral fracture, extensive bruising on L arm. Urology asked to evaluate patient due to severe hydronephrosis on CT imaging. She is afebrile and hemodynamically stable. Labs today show no leukocytosis and normal renal function. Urine culture is final with coag negative staph not saprophytic. She is on ceftriaxone. Resendiz draining clear yellow urine. CT A/P reviewed Severe right renal cortical thinning with severe hydronephros is, this is likely chronic. She reports a known history of nonfunctioning right kidney. Follows with [facility] nephrology per her report. No acute intervention warranted. Continue supportive care and antibiotic therapy. Resendiz catheter per primary team. Will arrange follow-up with our service. Urology will sign off. Please call with any further questions, concerns, or changes in patient status. Plan of care and imaging reviewed with Dr. Warner, on-call urologist. History of Present Illness Attending Physician: Cheyenne Owens MD History of Present Illness 78-year-old female with PMH of hypertension, CKD 3, dyslipidemia, acquired hypothyroidism, chronic borderline hyponatremia and other medical problems listed below who presented to the ED after multiple falls at home and altered mental status. Patient is admitted to medicine service with UTI, rhabdomyol ysis, and left proximal humerus fracture and right clavicular fracture. Urology was asked to evaluate patient due to severe right-sided hydronephrosis on CT imaging. CT abdomen pelvis 1. There is severe right renal cortical thinning with severe hydronephrosis, this is likely chronic. Tiny subcentimeter left renal cyst. No follow-up imaging required. 2. Distended gallbladder with mild intrahepatic and extra hepatic ductal dilatation. Patient was examined at bedside today. Awake, resting in bed on arrival. No acute distress. Resendiz draining clear yellow urine. Denies flank or suprapubic pain. Denies f/c/n/v. Patient reports a history of nonfunctioning right kidney. She follows with nephrology at [facility] - Dr. Stevens per her report. She denies a prior urological history. She does not follow with a urologist. Allergies Allergy/AdvReac Type Severity Reaction Status Date / Time Penicillins Allergy Intermediate HX ASTHMA, Verified 05/15/23 16:52 MADE ASTHMA LIKE SYMPTOMS WORSE Home Medications Medication Instructions Recorded Confirmed Type aspirin 81 mg tablet,delayed 81 mg PO DAILY 04/25/19 05/15/23 History release (Adult Low Dose Aspirin) hydrochlorothiazide 25 mg tablet 25 mg PO QAM 04/25/19 05/15/23 History latanoprost 0.005 % eye drops 1 drops OPB QPM 04/25/19 05/15/23 History lisinopril 40 mg tablet 40 mg PO QAM 04/25/19 05/15/23 History atorvastatin 20 mg tablet 20 mg PO QAM 05/15/23 05/15/23 History carvedilol 12.5 mg tablet 12.5 mg PO BID 05/15/23 05/15/23 History cholecalciferol (vitamin D3) 25 25 mcg PO DAILY 05/15/23 05/15/23 History mcg (1,000 unit) capsule (Vitamin D3) levothyroxine 112 mcg tablet 112 mcg PO DAILYBB 05/15/23 05/15/23 History vitamin B complex-vitamin C-folic 1 tab PO DAILY 05/15/23 05/15/23 History acid 1 mg tablet Patient History Medical History CKD (chronic kidney disease), stage III Hypothyroidism History of colon polyps Endometrial cancer HX HYSTERECTOMY 20 YR AGO , HX RADIATION HTN (hypertension) Surgical History Status post EDY-BSO History of cataract surgery LEFT History of colonoscopy History of hysterectomy Family History Family/Other Hypertension Grandmother Breast cancer Brother Cancer Brother Cancer Social History Smoking Status: Never smoker Second Hand Exposure: No; Do You Dip or Chew Tobacco: No; Hx Alcohol Use: No Hx Substance Use: No Preferred Language: Uzbek Communication Ability: Effective Visual Impairment: Limited Hearing Ability: Normal 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 Beliefs That Will Affect Care: None marital status: Single Current Living Situation: Alone current occupational status: retired Other Information That Helps Us Care for You: No Feels Safe at Home: Yes Safety Concerns: Feels Safe At This Time Assistive Devices: Cane and Other Review of Systems Review of Systems: All systems reviewed & are unremarkable except as noted in HPI & below Physical Exam Constitutional: no acute distress Neck: normal visual inspection Respiratory: no respiratory distress and no labored breathing Musculoskeletal: Head/Neck/Chest: normocephalic Skin: Bruising on face and left shoulder/arm Neurologic: awake Psychiatric: A+Ox3, euthymic affect Genitourinary: Resenidz intact Results & Data Vital Signs (Past 12 Hours) Vital Signs Temp Pulse Resp BP Pulse Ox O2 Del Method 05/18/23 11:28 36.7 C 67 16 125/70 93 Room Air 05/18/23 09:25 Room Air 05/18/23 03:50 36.8 C 69 18 111/72 95 Room Air PG Care Time/CCT Total # of Minutes Spent Total Time Spent with Patient: Total time spent is greater than 50% in coordination of care (as documented) at patient's floor/unit and/or counseling patient: Coding Level of Care Code 56694 INT INP/OBS CARE MIN Diagnoses UTI (urinary tract infection) N39.0 Hydronephrosis N13.30
--- NOTE | 2023-05-18 15:48 | Orthopedic Progress Note ---
Date of Service May 18, 2023 Assessment & Plan (1) Proximal humeral fracture: Plan: IMPRESSION: Left proximal humerus fracture, impacted PLAN: RICE Ji brace with shoulder cap in place and comfortable. No heavy lifting. Pain control per primary service Continue care per primary service. Sling for comfort Follow up in 2 weeks with x-rays in brace. Please recall if any ortho issue. Present on Admission?: Yes (2) Clavicular fracture: Plan: IMPRESSION: Questionable right medial clavicle fracture, x-rays were negative PLAN: See above Activities as tolerated F/U in 2 weeks, if having pain over right SC joint will obtain x-rays 2 views right clavicle and Serendipity view Admission and Anticipated Discharge Date Admission Date: May 15, 2023 Subjective feeling better Physical Exam Physical Exam: Sitting comfortably in chair. BUE: sensation to light touch intact distally. 2+ radial pulse. Motor to: median, radial, ulnar, AIN, PIN, musculocutaneous nerves intact. RUE: minimal TTP medial clavicle. minimal swelling SC joint. Shoulder ROM FF 160 degrees with mild crepitus at SC joint, without pain. LUE: Significant swelling & bruising shoulder down to elbow and hand with various stages of healing green and purple discoloration. Ji brace in place.. + Bruising right forehead. Results & Data Vital Signs (Past 12 Hours) Vital Signs Temp Pulse Pulse Resp BP Pulse Ox O2 Del Method 05/18/23 15:37 81 05/18/23 11:28 36.7 C 67 16 125/70 93 Room Air 05/18/23 09:25 Room Air 05/18/23 03:50 36.8 C 69 18 111/72 95 Room Air Laboratory Results Laboratory Results WBC 5.88 K/ul (4.8-10.8) 05/18/23 05:36 RBC 2.61 M/uL (4.20-5.40) L 05/18/23 05:36 Hgb 7.8 g/dl (12.0-16.0) L 05/18/23 05:36 Hct 23.8 % (37.0-47.0) L 05/18/23 05:36 MCV 91.2 fL (80.0-100.0) 05/18/23 05:36 MCH 29.9 pg (25.0-34.0) 05/18/23 05:36 MCHC 32.8 g/dL (32.0-36.0) 05/18/23 05:36 RDW Std Deviation 50.6 fL (36.4-46.3) H 05/18/23 05:36 RDW Coeff of Nanci 15.4 % (11.5-14.5) H 05/18/23 05:36 Plt Count 175 K/uL (130-400) 05/18/23 05:36 MPV 10.2 fL (9.4-12.4) 05/18/23 05:36 Immature Gran % (Auto) 0.4 % 05/15/23 16:00 Neut % (Auto) 80.6 % 05/15/23 16:00 Lymph % (Auto) 6.2 % 05/15/23 16:00 Cannon % (Auto) 12.5 % 05/15/23 16:00 Eos % (Auto) 0.1 % 05/15/23 16:00 Baso % (Auto) 0.2 % 05/15/23 16:00 Neut # (Auto) 10.23 K/uL (1.40-6.50) H 05/15/23 16:00 Lymph # (Auto) 0.79 K/uL (1.20-3.40) L 05/15/23 16:00 Cannon # (Auto) 1.59 K/uL (0.11-0.59) H 05/15/23 16:00 Eos # (Auto) 0.01 K/uL (0.00-0.50) 05/15/23 16:00 Baso # (Auto) 0.03 K/uL (0.00-0.20) 05/15/23 16:00 Immature Gran # (Auto) 0.05 K/uL (0.01-0.20) 05/15/23 16:00 PT 11.0 Seconds (9.0-12.0) 05/15/23 16:00 INR 1.0 (0.9-1.1) 05/15/23 16:00 APTT 22 Seconds (21-31) 05/15/23 16:00 PTT Ratio 0.8 05/15/23 16:00 Sodium 133 mmol/L (136-145) L 05/18/23 05:36 Potassium 3.8 mmol/L (3.5-5.1) 05/18/23 05:36 Chloride 104 mmol/L (98-107) 05/18/23 05:36 Carbon Dioxide 26 mmol/L (21-32) 05/18/23 05:36 Anion Gap 3 (3-11) 05/18/23 05:36 BUN 15 mg/dl (6-23) 05/18/23 05:36 Creatinine 0.71 mg/dl (0.6-1.2) 05/18/23 05:36 Est Cr Clr Drug Dosing 64.7 ml/min 05/18/23 05:36 Est GFR ( Amer) 95.2 ml/min 05/18/23 05:36 Est GFR (Non-Af Amer) 82.2 ml/min 05/18/23 05:36 BUN/Creatinine Ratio 21.1 (10-20) H 05/18/23 05:36 Glucose 81 mg/dl (70-99(Fasting)) 05/18/23 05:36 Osmolality 275 mOsm/kg (280-300) L 05/15/23 17:31 Calcium 7.9 mg/dl (8.6-10.3) L 05/18/23 05:36 Phosphorus 2.5 mg/dl (2.5-4.9) 05/18/23 05:36 Magnesium 1.9 mg/dl (1.7-2.4) 05/18/23 05:36 Iron 127 mcg/dl (35-150) 05/18/23 05:36 TIBC 259 mcg/dl (250-450) 05/18/23 05:36 Unsaturated IBC 132 mcg/dl (155-355) L 05/18/23 05:36 Transferrin % Sat 49 % (15-50) 05/18/23 05:36 Ferritin 107.9 ng/ml (8-388) 05/18/23 05:36 Total Bilirubin 0.9 mg/dl (0.2-1.0) 05/18/23 05:36 AST 42 U/L (13-39) H 05/18/23 05:36 ALT 29 U/L (7-52) 05/18/23 05:36 Alkaline Phosphatase 35 U/L (34-104) 05/18/23 05:36 Total Creatine Kinase 754 U/L (26-192) H 05/18/23 05:36 Troponin I High Sens 27.5 pg/ml (0-14) H 05/15/23 22:30 Total Protein 4.4 gm/dl (6.0-8.3) L 05/18/23 05:36 Albumin 2.8 gm/dl (3.4-5.0) L 05/18/23 05:36 Globulin 1.6 gm/dl (2.5-4.0) L 05/18/23 05:36 Albumin/Globulin Ratio 1.8 (0.9-2) 05/18/23 05:36 Vitamin B12 984 pg/ml (180-914) H 05/18/23 05:36 25-OH Vitamin D Total 11.8 ng/ml (30-100) L 05/18/23 05:36 Folate 13.03 ng/ml (>5.38) 05/18/23 05:36 TSH 0.755 uIu/ml (0.300-4.500) 05/15/23 16:00 Urine Color Dark Yellow 05/15/23 19:37 Urine Appearance Cloudy (Clear) A 05/15/23 19:37 Urine pH 5.5 (4.5-7.5) 05/15/23 19:37 Ur Specific Alkol 1.022 (1.000-1.030) 05/15/23 19:37 Urine Protein Trace (Negative) H 05/15/23 19:37 Urine Glucose (UA) Negative (Negative) 05/15/23 19:37 Urine Ketones Trace (Negative) H 05/15/23 19:37 Urine Blood Negative (Negative) 05/15/23 19:37 Urine Nitrite Positive (Negative) A 05/15/23 19:37 Urine Bilirubin Negative (Negative) 05/15/23 19:37 Urine Urobilinogen Negative (Negative) 05/15/23 19:37 Ur Leukocyte Esterase 2+ (Negative) H 05/15/23 19:37 Urine WBC (Auto) 10-30 /hpf (0-5) H 05/15/23 19:37 Urine RBC (Auto) 0-4 /hpf (0-4) 05/15/23 19:37 U Hyaline Cast (Auto) 1-5 /lpf (0-5) 05/15/23 19:37 U Epithel Cells (Auto) >30 /lpf (0-5) H 05/15/23 19:37 Urine Bacteria (Auto) 1+ (Negative) H 05/15/23 19:37 Urine Crystals Calcium Oxalate (None Prsent) A 05/15/23 19:37 Calcium Oxalate Crystal Present (None Prsent) A 05/15/23 19:37 Urine Yeast Budding (None Prsent) A 05/15/23 19:37 Urine Osmolality 645 mOsm/kg (500-800) 05/15/23 19:37 Urine Opiates Screen Neg (Neg) 05/15/23 19:37 Ur Methadone, Qual Neg (Neg) 05/15/23 19:37 Urine Barbiturates Neg (Neg) 05/15/23 19:37 Ur Phencyclidine (PCP) Neg (Neg) 05/15/23 19:37 U Amphetamin/Meth Scrn Neg (Neg) 05/15/23 19:37 MDMA (Ecstasy) Screen Neg (Neg) 05/15/23 19:37 U Benzodiazepines Scrn Neg (Neg) 05/15/23 19:37 Ur Cocaine Metabolite Neg (Neg) 05/15/23 19:37 U Marijuana (THC) Screen Neg (Neg) 05/15/23 19:37 Impressions Chest X-Ray 05/15/23 16:20 XR chest 1V not portable HISTORY: 78 years-old Female Weakness weakness COMPARISON: None TECHNIQUE: AP view of the chest FINDINGS: Cardiomediastinal and hilar silhouettes are within normal limits. The patient is mildly rotated. No pneumothorax, pleural effusion, airspace consolidation or overt pulmonary edema. Displaced and impacted comminuted left proximal humeral fracture. IMPRESSION: 1. No acute cardiopulmonary abnormality. 2. Displaced, comminuted and impacted left proximal humeral fracture, possibly subacute. ACT 112: Negative or not required by law. The above report was generated using voice recognition software. It may contain grammatical, syntax or spelling errors. Electronically signed by: Socrates Copeland M.D. 05/15/2023 4:[address] 05/15/23 17:26 CT SCAN OF THE CERVICAL SPINE CLINICAL HISTORY: Fall. COMPARISON STUDY: No priors. TECHNIQUE: CT scan of the cervical spine is performed from the skull base to the upper thoracic spine. Images are reviewed in the axial, sagittal, and coronal planes. IV contrast was not administered for this examination. A dose lowering technique was utilized adhering to the principles of ALARA. FINDINGS: Skeletal structures: The skeletal structures are osteopenia. There is no evidence of fracture or subluxation involving the cervical spine. Vertebral body height and alignment are maintained. Tiny anterior osteophytes are seen throughout. The odontoid process and lateral masses are intact. The atlantoaxial articulation is preserved noting mild productive degenerative change. The spinous processes appear intact. A comminuted fracture of the right clavicle is partially imaged. Intervertebral discs: There is mild multilevel disc space narrowing, greatest at C5-C6 and C6-C7. Central canal: A posterior disc osteophyte complex at C5-C6 may contribute to mild acquired compromise of the central canal. Soft tissues: The prevertebral and paraspinous soft tissues are within normal limits. The thyroid gland is atrophic. There is atherosclerotic calcification of the carotid bulbs. There is hemorrhage around a right clavicular fracture. Calvarium: The visualized calvarium at the skull base appears intact. Brain parenchyma: Partially visualized brain parenchyma at the skull base is within normal limits. Sinuses and mastoids: There is trace mucosal thickening in the right maxillary antrum. The mastoid air cells are well pneumatized. Lung apices: Clear as visualized. IMPRESSION: 1. There is no evidence of fracture or subluxation involving the cervical spine. 2. Osteopenia and spondylotic change as above. 3. A comminuted fracture of the right clavicular head is partially visualized. ACT 112: Negative or not required by law. Electronically signed by: Amrit Delgado M.D. 05/15/2023 6:56 PM Elbow X-Ray 05/15/23 17:26 LEFT ELBOW 2 VIEWS CLINICAL HISTORY: Fall. Left arm injury. FINDINGS: AP and lateral views of the left elbow are obtained. No prior studies are available for comparison at the time of dictation. The skeletal structures are osteopenic. There is no radiographic evidence of acute fracture or dislocation on this 2 view examination. No joint effusion is identified. Soft tissue edema is seen throughout the left arm. IMPRESSION: Soft tissue swelling with no radiographic evidence of acute fracture. Electronically signed by: Amrit Delgado M.D. 05/15/2023 7:[address] 05/15/23 17:26 CT SCAN OF THE BRAIN WITHOUT IV CONTRAST CLINICAL HISTORY: Fall. COMPARISON STUDY: No priors. TECHNIQUE: Unenhanced axial CT scan of the brain is performed from the vertex to the skull base. A dose lowering technique was utilized adhering to the principles of ALARA. CT DOSE: 1601.13 mGy.cm FINDINGS: Brain parenchyma: There is age-related involutional change noting advanced confluent subcortical and periventricular microangiopathic disease. There is no hemorrhage, mass effect, or evidence of acute territorial ischemia by CT criteria. Frederick-white matter differentiation is preserved. No extra-axial fluid collection is seen. Ventricles, sulci, cisterns: Prominent secondary to involutional change. Intracranial vasculature: There is atherosclerotic calcification of the cavernous carotid and vertebral arteries. Calvarium: The skeletal structures are osteopenic. No depressed calvarial fracture is identified. Sinuses and mastoids: The visualized paranasal sinuses are clear. The mastoid air cells are well pneumatized. Orbits: The bony orbits are grossly intact. There are bilateral ocular lens implants. IMPRESSION: There is no hemorrhage, mass effect, or evidence of acute territorial ischemia by CT criteria. ACT 112: Negative or not required by law. Electronically signed by: Amrit Delgado M.D. 05/15/2023 6:38 PM Knee X-Ray 05/15/23 17:26 LEFT KNEE 3 VIEWS CLINICAL HISTORY: Fall. Left knee injury. FINDINGS: AP, crosstable lateral, and sunrise views of the left knee are obtained. No prior studies are available for comparison at the time of dictation. The skeletal structures are osteopenic. No fracture is seen. There is moderate degenerative narrowing in the medial and patellofemoral compartments. Mild narrowing is seen in the lateral compartment. There is chondrocalcinosis within the medial and lateral components. There are marginal osteophytes, patellar enthesophytes, and degenerative beaking of the tibial spine. A small joint effusion is observed. There is soft tissue edema around the knee. IMPRESSION: 1. Soft tissue swelling and small joint effusion with no fracture identified. 2. Osteopenia with degenerative change and chondrocalcinosis as above. Electronically signed by: Amrit Delgado M.D. 05/15/2023 7:11 PM Shoulder X-Ray 05/15/23 20:10 LEFT SHOULDER 2 VIEWS CLINICAL HISTORY: Fall. Fracture. FINDINGS: 2 portable views of the left shoulder are obtained. The skeletal structures are osteopenic. There is an age-indeterminant impacted and comminuted fracture of the left humeral head and neck with displaced fragments. There is medial distraction and overriding of the humeral shaft. No additional acute fracture is identified. Arthritic change is seen at the glenohumeral and acromioclavicular joints. Soft tissue edema is noted in the left arm. The imaged left lung parenchyma appears clear. IMPRESSION: Age indeterminant fracture of the left humeral head and neck as above. This may be acute to subacute. Correlate clinically. Electronically signed by: Amrit Delgado M.D. 05/16/2023 7:35 AM Clavicle X-Ray 05/16/23 10:02 XR clavicle 2 view RT CLINICAL HISTORY: fracture TECHNIQUE: 2 views of the right clavicle were obtained. Comparison: None available at the time of this dictation. FINDINGS: There is no evidence of acute fracture, subluxation, or dislocation. The overlying soft tissues are unremarkable. The visualized portions of the lungs are clear. IMPRESSION: No acute abnormality in particular no evidence of clavicular fracture. ACT 112: Negative or not required by law. Electronically signed by: Willis Mitchell M.D. 05/16/2023 12:29 PM Abdomen/Pelvis CT 05/17/23 20:10 Exam(s): CT ABDOMEN + PELVIS With Contrast IV Amt: 91 ml opti 320 EXAM: CT Abdomen and Pelvis With Intravenous Contrast CLINICAL HISTORY: Reason for exam: abd pain, calcium ox crystal r/o kidney stones. TECHNIQUE: Axial computed tomography images of the abdomen and pelvis with intravenous contrast. CTDI is 19.77 mGy and DLP is 925.21 mGy-cm. Automated exposure control was utilized for the study. A dose lowering technique was utilized adhering to the principles of ALARA. CONTRAST: Patient received 91 ml opti 320 of IV contrast COMPARISON: No relevant prior studies available. FINDINGS: Lung bases: Mild lung base emphysemas changes with bibasilar atelectasis versus scarring. ABDOMEN: Liver: See below. Gallbladder and bile ducts: Distended gallbladder with mild intrahepatic and extra hepatic ductal dilatation. No calcified stones. Pancreas: Unremarkable. No mass. No ductal dilation. Spleen: Unremarkable. No splenomegaly. Adrenals: Unremarkable. No mass. Kidneys and ureters: There is severe right renal cortical thinning with severe hydronephrosis, this is likely chronic. Multiple calcifications within the right renal pelvis measuring up to 13 mm. Stomach and bowel: Unremarkable. No obstruction. No mucosal thickening. PELVIS: Appendix: Moderate stool throughout the colon and rectum. No invasion of the appendix. No secondary CT signs of acute appendicitis. Bladder: Resendiz catheter within the urinary bladder. Reproductive: Unremarkable as visualized. ABDOMEN and PELVIS: Intraperitoneal space: Unremarkable. No free air. No significant fluid collection. Bones/joints: Moderate multilevel degenerative changes of the lumbar spine with grade 1 anterolisthesis at L4/L5. No acute fracture. No dislocation. Soft tissues: Unremarkable. Vasculature: Severe atherosclerotic disease. No abdominal aortic aneurysm. Lymph nodes: Unremarkable. No enlarged lymph nodes. IMPRESSION: 1. There is severe right renal cortical thinning with severe hydronephrosis, this is likely chronic. Tiny subcentimeter left renal cyst. No follow-up imaging required. 2. Distended gallbladder with mild intrahepatic and extra hepatic ductal dilatation. Discussed with Jose Garcia PA-C on 05/16 21:40 (-05:00) Discussed with Dr. Garcia on 05/16 21:40 (-05:00) Electronically signed by: Nadja Harris MD 05/17/23 21:40 PM Gallbladder Ultrasound 05/18/23 00:00 ULTRASOUND RIGHT UPPER QUADRANT ABDOMEN CLINICAL HISTORY: Generalized abdominal pain. Distended gallbladder. COMPARISON STUDY: Abdominal CT dated 05/17/2023 TECHNIQUE: Real-time, grayscale, and color flow sonography of the right upper quadrant of the abdomen was performed. Images are reviewed in the transverse and longitudinal planes. FINDINGS: Liver: The liver is normal in size and echotexture. There is no intrahepatic biliary ductal dilatation. The main portal vein is patent. Gallbladder: The gallbladder is distended and contains biliary sludge. No shadow gallstones are identified. There is trace pericholecystic fluid. No gallbladder wall thickening is identified. A sonographic Acevedo's sign is reportedly absent. The common bile duct measures up to 1.2 cm in diameter. Pancreas: Visualized portions of the pancreatic head and body are normal in appearance. Right kidney: Survey images of the right kidney shows severe cortical atrophy and severe hydronephrosis. Ascites: There is trace perihepatic fluid. Pleural spaces: There is a trace right pleural effusion. IMPRESSION: 1. Distended gallbladder containing sludge. No shadowing stones are identified and there is no sonographic evidence of acute cholecystitis. 2. Severely atrophic and hydronephrotic right kidney. 3. There is no intrahepatic biliary ductal dilatation. 4. Trace pericholecystic fluid is noted and there is a small right pleural effusion. ACT 112: Negative or not required by law. Electronically signed by: Amrit Delgado M.D. 05/18/2023 9:12 AM
[2023-05-18] MEDS: NITROFURANTOIN MONOHYDRATE 100 MG CAP PO SCH (21:20)
[2023-05-19 06:59] LABS: Hematocrit (blood only) 25.1 % (37.0-47.0); Hemoglobin 8.4 g/dl (12.0-16.0); Mean Corpuscular Hemoglobin 29.8 pg (25.0-34.0); Mean Corpuscular Hgb Conc 33.5 g/dL (32.0-36.0); Mean Platelet Volume 9.9 fL (9.4-12.4); Platelet Count 179 K/uL (130-400); RDW Coefficient of Variation 15.4 % (11.5-14.5); Red Blood Count 2.82 M/uL (4.20-5.40); White Blood Count 6.65 K/ul (4.8-10.8)
[2023-05-19 07:27] LABS: Magnesium 1.7 mg/dl (1.7-2.4); Phosphorus 2.1 mg/dl (2.5-4.9)
[2023-05-19 09:07] LABS: BUN Creatinine Ratio 18.6 (10-20); Calcium 8.1 mg/dl (8.6-10.3); Creatinine Clr Calc Pharmacy 67.9 ml/min; Est GFR (African American) 96.9 ml/min; Est GFR (Non-African American) 83.6 ml/min; Potassium 4.1 mmol/L (3.5-5.1)
[2023-05-19] MEDS: POLYETHYLENE (MIRALAX) 17 GM PACK PO PRN (17:00)
[2023-05-19] MEDS ORDERED: POTASSIUM PHOS 3 MMOL/1 ML INFUSION IV STA (17:34)
[2023-05-19] MEDS: POTASSIUM PHOSPHATE 21 MMOL in SODIUM CHLORIDE 0.9% 500 ML IV ONE (18:00)
[2023-05-19] MEDS: POT PHOSPHATE MONOBASIC W/ SOD TAB PO SCH (21:04)
[2023-05-19] MEDS: metroNIDAZOLE 500 MG TAB PO SCH (21:08)
[2023-05-19] MEDS: CIPROFLOXACIN 500 MG TAB PO SCH (21:09)
--- NOTE | 2023-05-19 22:54 | Hospitalist Progress Note ---
Date of Service May 19, 2023 Assessment & Plan (1) UTI (urinary tract infection): (2) Rhabdomyolysis: (3) Proximal humeral fracture: (4) Clavicular fracture: (5) Traumatic ecchymosis of left upper arm: (6) Acute metabolic encephalopathy: (7) Repeated falls: (8) CKD (chronic kidney disease), stage III: (9) HTN (hypertension): (10) Hypothyroidism: Plan This is a 78-year-old female with PMHx significant for hypertension, CKD 3, dyslipidemia, acquired hypothyroidism, chronic borderline hyponatremia who presents after multiple falls at home and acute metabolic encephalopathy in setting of UTI. Acute Metabolic Encephalopathy Likely in setting of UTI Mentation improving in ED, but unsure nature or details of falls CT head without acute intracranial abnormality Tox screen negative Biofire negative Chest XRAY with no pneumonia UA suggestive of infection, urine Cx currently growing coag neg staph not saprophyticus Rocephin (3 days of rx) switched to macrobid to which urine is susceptible Delirium precautions. Frequent reorientation, avoid sedating medications Pt currently AAOx3, mentation improved. UTI (urinary tract infection) UA suggestive of infection Also noted calcium oxalate crystals and budding yeast urine Cx currently growing growing coag neg staph not saprophyticus Rocephin switched to macrobid to which urine is susceptible Day 5 of 7 Calcium Oxalate Crystals Abdominal Pain UA noting calcium oxalate crystals Pt with abdominal pain Hx of kidney stones CT/abd pelvis ordered -noted severe R hydronephrosis -Distended gallbladder with mild intrahepatic and extra hepatic ductal dilatation. Severe R hydronephrosis Seen on CT abd/pelvis Per pt, known Hx, follows with nephrology. No Urology Urology consult placed, appreciate recs -no acute intervention -Urology outpt f/u Distended gallbladder with mild intrahepatic and extra hepatic ductal dilatation noted on CT abd/pelvis LFTs initially elevated on admission US gallbladder ordered noting no acute cholecystitis GI consulted, appreciate recs -discussion of MRCP, pt declining Continue with po cipro and flagyl Day 1 of 10 CKD (chronic kidney disease), stage III Follow[address] Stevens, h/o renal stones. Cr at baseline ~1. Continue to monitor with daily BMP Currently wnl Rhabdomyolysis CK >1000 in setting of falls Cr at baseline ~ 1 Initial HS trop mildly elevated at 35.7, downtrended to 27.5 No chest pain or acute EKG changes. Likely elevated in setting of rhabdo Continue IV fluids Continue to trend CK- currently downtrending Repeated falls Traumatic ecchymosis of left upper arm Clavicular fracture Proximal humeral fracture Has had at least 2 unwitnessed falls in the past few days with extensive bruising on L arm Lives alone and ambulates independently at baseline Evidence of displaced, comminuted and impacted left proximal humeral fracture, acute- subacute Comminuted R clavicle head fracture on CT cervical spine, XR right clavicle negative Ortho consulted, appreciate the following recs: For Left proximal humerus fracture: -RICE -Ji fracture brace with a shoulder cap, sling for comfort. -No heavy lifting. -Follow up in 2 weeks with x-rays in brace. For Clavicular fracture: -Sling for comfort -clavicle x-rays with serendipity views -Activities as tolerated -F/U in 2 weeks with x-rays 2 views right clavicle and Serendipity view Continue with pain control, fall precautions, PT/OT when able Anemia Hgb ~10 on admission currently downtrending iron panel, ferritin, b12 and folate levels currently supplemented Osteopenia Noted Osteopenia on images DEXA Hx uncertain Vit D level low, increased to D3 125mcg With Hx of fracture + osteopenia, might need to start osteoporosis rx Electrolyte Abnormalities Hyponatremia: Na 128 on admission. Urine osm, na levels. Gentle fluid hydration. Currently improving Hypomagnesemia: replete as needed Hypokalemia: replete as needed Hypophosphatemia: replete as needed Dietary consult for nutritional assessment. Appreciate recs Aspiration Event Pt notes possible aspiration event on 05/16 States that she was eating and talking at the same time Speech consult placed Currently on RA Consider chest XRAY for further eval On Flagyl and cipro as noted above HTN (hypertension) Home regimen includes carvedilol 12.5mg BID, hctz and lisinopril 40mg Given 1L NSS in ED but BP remains borderline low. Continue IV fluids Coreg resumed, as well as as HCTZ and lisinopril Continue to monitor BP Hypothyroidism Continue levothyroxine Diet: HH DVT Ppx: SCDs in setting of anemia and bruising Code status: FULL PCP: Janes De La Rosa Dispo: PT recommending rehab Admission and Anticipated Discharge Date Admission Date: May 15, 2023 Subjective States that she was feeling much better. Able to sit up on her own now and move her head. Wanted to sit up in chair. Reading occasionally. Review of Systems Review of Systems: All systems reviewed & are unremarkable except as noted in Subjective Physical Exam Physical Exam: General: Alert, oriented. No acute distress Skin: Bruising on face and left shoulder/arm Psych: Appropriate mood and affect Neuro: difficulty with movements in the bed HEENT: Bruising on face Chest: Nontender to palpation. CV: RRR, Normal s1, s2. No murmurs appreciated Resp: Breath sounds clear bilaterally, no increased effort of breathing. Abdomen: Soft, mildly tender, nondistended. Extremities:bruising on lower extremities bilaterally. left shoulder in sling Results & Data Results & Data Vital Signs (Past 12 Hours) Vital Signs Temp Pulse Resp BP Pulse Ox O2 Del Method 05/19/23 06:57 36.4 C L 81 16 121/74 97 Room Air 05/19/23 02:55 36.6 C 77 15 122/63 97 Room Air 05/18/23 23:20 36.3 C L 72 17 118/66 93 Room Air
[2023-05-20 06:36] LABS: Basophils # (auto) 0.02 K/uL (0.00-0.20); Basophils % (auto) 0.3 %; Eosinophils # (auto) 0.39 K/uL (0.00-0.50); Eosinophils % (auto) 6.2 %; Hematocrit (blood only) 26.3 % (37.0-47.0); Hemoglobin 8.5 g/dl (12.0-16.0); Immature Granulocytes # (auto) 0.03 K/uL (0.01-0.20); Immature Granulocytes % (auto) 0.5 %; Lymphocytes # (auto) 0.86 K/uL (1.20-3.40); Lymphocytes % (auto) 13.6 %; Mean Corpuscular Hemoglobin 29.3 pg (25.0-34.0); Mean Corpuscular Hgb Conc 32.3 g/dL (32.0-36.0); Mean Corpuscular Volume 90.7 fL (80.0-100.0); Mean Platelet Volume 9.5 fL (9.4-12.4); Monocytes % (auto) 15.8 %; Neutrophils # (auto) 4.04 K/uL (1.40-6.50); Neutrophils % (auto) 63.6 %; Platelet Count 192 K/uL (130-400); RDW Coefficient of Variation 15.9 % (11.5-14.5); RDW Standard Deviation 52.6 fL (36.4-46.3); White Blood Count 6.34 K/ul (4.8-10.8)
[2023-05-20 07:06] LABS: Albumin Globulin Ratio 1.9 (0.9-2); BUN Creatinine Ratio 13.1 (10-20); Calcium 8.2 mg/dl (8.6-10.3); Creatinine Clr Calc Pharmacy 77.9 ml/min; Est GFR (African American) 101.3 ml/min; Est GFR (Non-African American) 87.4 ml/min; Globulin 1.6 gm/dl (2.5-4.0); Magnesium 1.6 mg/dl (1.7-2.4); Phosphorus 3.8 mg/dl (2.5-4.9); Potassium 4.1 mmol/L (3.5-5.1); Total Protein 4.6 gm/dl (6.0-8.3)
[2023-05-20] MEDS: hydroCHLOROthiazide 25 MG TAB PO SCH (08:04)
[2023-05-20] MEDS: CHOLECALCIFEROL 125 MCG (5,000 UNITS) TAB PO SCH (08:04)
[2023-05-20] MEDS: lisinopril 40 MG TAB PO SCH (08:04)
[2023-05-20] MEDS: MAGNESIUM SULFATE / D5W 1 GM/100 ML BAG IV SCH (12:07)
[2023-05-20] MEDS: MAGNESIUM OXIDE 400 MG TAB PO SCH (12:07)
--- NOTE | 2023-05-20 14:49 | Hospitalist Progress Note ---
Date of Service May 20, 2023 Assessment & Plan (1) UTI (urinary tract infection): (2) Rhabdomyolysis: (3) Proximal humeral fracture: (4) Clavicular fracture: (5) Traumatic ecchymosis of left upper arm: (6) Acute metabolic encephalopathy: (7) Repeated falls: (8) CKD (chronic kidney disease), stage III: (9) HTN (hypertension): (10) Hypothyroidism: Plan This is a 78-year-old female with PMHx significant for hypertension, CKD 3, dyslipidemia, acquired hypothyroidism, chronic borderline hyponatremia who presents after multiple falls at home and acute metabolic encephalopathy in setting of UTI. Acute Metabolic Encephalopathy Likely in setting of UTI Mentation improving in ED, but unsure nature or details of falls CT head without acute intracranial abnormality Tox screen negative Biofire negative Chest XRAY with no pneumonia UA suggestive of infection, urine Cx currently growing coag neg staph not saprophyticus Rocephin (3 days of rx) switched to macrobid to which urine is susceptible Delirium precautions. Frequent reorientation, avoid sedating medications Pt currently AAOx3, mentation improved. UTI (urinary tract infection) UA suggestive of infection Also noted calcium oxalate crystals and budding yeast urine Cx currently growing growing coag neg staph not saprophyticus Rocephin switched to macrobid to which urine is susceptible Day 5 of 7 Calcium Oxalate Crystals Abdominal Pain UA noting calcium oxalate crystals Pt with abdominal pain Hx of kidney stones CT/abd pelvis ordered -noted severe R hydronephrosis -Distended gallbladder with mild intrahepatic and extra hepatic ductal dilatation. Severe R hydronephrosis Seen on CT abd/pelvis Per pt, known Hx, follows with nephrology. No Urology Urology consult placed, appreciate recs -no acute intervention -Urology outpt f/u Distended gallbladder with mild intrahepatic and extra hepatic ductal dilatation noted on CT abd/pelvis LFTs initially elevated on admission US gallbladder ordered noting no acute cholecystitis GI consulted, appreciate recs -discussion of MRCP, pt declining Continue with po cipro and flagyl Day 2 of 10 CKD (chronic kidney disease), stage III Follows with Dr. Stevens, h/o renal stones. Cr at baseline ~1. Continue to monitor with daily BMP Currently wnl Rhabdomyolysis CK >1000 in setting of falls Cr at baseline ~ 1 Initial HS trop mildly elevated at 35.7, downtrended to 27.5 No chest pain or acute EKG changes. Likely elevated in setting of rhabdo IV fluids discontinued, taking po Continue to trend CK- currently normal Repeated falls Traumatic ecchymosis of left upper arm Clavicular fracture Proximal humeral fracture Has had at least 2 unwitnessed falls in the past few days with extensive bruising on L arm Lives alone and ambulates independently at baseline Evidence of displaced, comminuted and impacted left proximal humeral fracture, acute- subacute Comminuted R clavicle head fracture on CT cervical spine, XR right clavicle negative Ortho consulted, appreciate the following recs: For Left proximal humerus fracture: -RICE -Ji fracture brace with a shoulder cap, sling for comfort. -No heavy lifting. -Follow up in 2 weeks with x-rays in brace. For Clavicular fracture: -Sling for comfort -clavicle x-rays with serendipity views -Activities as tolerated -F/U in 2 weeks with x-rays 2 views right clavicle and Serendipity view Continue with pain control, fall precautions, PT/OT when able Anemia Hgb ~10 on admission currently downtrending iron panel, ferritin, b12 and folate levels currently supplemented Osteopenia Noted Osteopenia on images DEXA Hx uncertain Vit D level low, increased to D3 125mcg With Hx of fracture + osteopenia, might need to start osteoporosis rx Electrolyte Abnormalities Hyponatremia: Na 128 on admission. Urine osm, na levels. Gentle fluid hydration. Currently improving Hypomagnesemia: replete as needed Hypokalemia: replete as needed Hypophosphatemia: replete as needed Dietary consult for nutritional assessment. Appreciate recs Aspiration Event Pt notes possible aspiration event on 05/16 States that she was eating and talking at the same time Speech consult placed Currently on RA Consider chest XRAY for further eval On Flagyl and cipro as noted above HTN (hypertension) Home regimen includes carvedilol 12.5mg BID, hctz and lisinopril 40mg Given 1L NSS in ED but BP remains borderline low. Continue IV fluids Coreg resumed, as well as as HCTZ and lisinopril Continue to monitor BP Hypothyroidism Continue levothyroxine Diet: HH DVT Ppx: SCDs in setting of anemia and bruising Code status: FULL PCP: Janes De La Rosa Dispo: PT recommending rehab Admission and Anticipated Discharge Date Admission Date: May 15, 2023 Subjective States that she was feeling much better. Able to sit up on her own now and move her head. Was sitting in chair at bedside. Reading occasionally. Review of Systems Review of Systems: All systems reviewed & are unremarkable except as noted in Subjective Physical Exam Physical Exam: General: Alert, oriented. No acute distress Skin: Bruising on face and left shoulder/arm Psych: Appropriate mood and affect Neuro: difficulty with movements in the bed HEENT: Bruising on face Chest: Nontender to palpation. CV: RRR, Normal s1, s2. No murmurs appreciated Resp: Breath sounds clear bilaterally, no increased effort of breathing. Abdomen: Soft, mildly tender, nondistended. Extremities:bruising on lower extremities bilaterally. left shoulder in sling Results & Data Results & Data Vital Signs (Past 12 Hours) Vital Signs Temp Pulse Pulse Resp BP Pulse Ox O2 Del Method 05/20/23 11:15 36.8 C 81 18 104/68 95 Room Air 05/20/23 08:00 77 05/20/23 07:29 36.8 C 73 18 164/76 H 95 Room Air 05/20/23 03:27 36.6 C 70 16 152/81 H 95 Room Air
[2023-05-21 07:37] LABS: Basophils # (auto) 0.04 K/uL (0.00-0.20); Basophils % (auto) 0.7 %; Hematocrit (blood only) 25.9 % (37.0-47.0); Hemoglobin 8.6 g/dl (12.0-16.0); Immature Granulocytes # (auto) 0.04 K/uL (0.01-0.20); Immature Granulocytes % (auto) 0.7 %; Lymphocytes % (auto) 13.3 %; Mean Corpuscular Hemoglobin 29.7 pg (25.0-34.0); Mean Corpuscular Hgb Conc 33.2 g/dL (32.0-36.0); Mean Corpuscular Volume 89.3 fL (80.0-100.0); Mean Platelet Volume 9.5 fL (9.4-12.4); Monocytes % (auto) 16.7 %; Neutrophils # (auto) 3.82 K/uL (1.40-6.50); Neutrophils % (auto) 63.6 %; Platelet Count 195 K/uL (130-400); RDW Coefficient of Variation 16.1 % (11.5-14.5); RDW Standard Deviation 50.8 fL (36.4-46.3)
[2023-05-21 07:59] LABS: Albumin Globulin Ratio 1.8 (0.9-2); BUN Creatinine Ratio 12.7 (10-20); Calcium 8.1 mg/dl (8.6-10.3); Creatinine Clr Calc Pharmacy 75.4 ml/min; Est GFR (African American) 100.3 ml/min; Est GFR (Non-African American) 86.5 ml/min; Globulin 1.7 gm/dl (2.5-4.0); Magnesium 1.8 mg/dl (1.7-2.4); Phosphorus 3.9 mg/dl (2.5-4.9); Potassium 3.9 mmol/L (3.5-5.1); Total Protein 4.7 gm/dl (6.0-8.3)
--- NOTE | 2023-05-21 10:21 | Nephrology Consultation ---
Date of Consultation May 21, 2023 Assessment & Plan (1) Hyponatremia: Have to stop HCTZ from now on. If needed will use Loop diuretics but never HCTZ. Also BP goal need to be higher given her frailness and recurrent falls. Also give NS 1000 ml . effect of HCTZ will be present for about a week so low Na will not get to normal quickly. as long as they are 128+ and stable will not hold up the discharge. (2) Hydronephrosis: (3) CKD (chronic kidney disease), stage III: Chronic hydro and CKD. already evaluated by urology. No acute intervention needed. (4) UTI (urinary tract infection): being treated. on Cipro and NTFN also History of Present Illness Reason for Consultation: Hyponatremia Attending Physician: Cheyenne Owens MD History of Present Illness 78/F being seen for Hyponatremia . She has hypertension, CKD 3, dyslipidemia, acquired hypothyroidism, chronic borderline hyponatremia and other medical problems listed below who presented few days ago after multiple falls at home and acute metabolic encephalopathy in setting of UTI and rhabdomyolysis.She had Hyponatremia mild type even before admission--is on HCTZ. On admission was 129 then got up to 133 and now dropping gain. seems still getting HCTZ. also low mag and low phos and getting replacement. Does have Fracture and already evaluated by Orthopedics. Had Hydronephrosis on CT--Seen by urology and is chronic with known rt renal atrophy. Not eating much ROS---C/o some pain and swelling of the LEft arm. Poor appetite. otherwise 12 systems reviewed and negative Physical Exam Physical Exam: General: Alert, oriented. No acute distress Skin: Bruising on face and left shoulder/arm Psych: Appropriate mood and affect Neuro: difficulty with movements in the bed HEENT: Bruising on face Chest: Nontender to palpation. CV: RRR, Normal s1, s2. No murmurs appreciated Resp: Breath sounds clear bilaterally, no increased effort of breathing. Abdomen: Soft, mildly tender, nondistended. Extremities:bruising on lower extremities bilaterally. left shoulder in sling Allergies Allergy/AdvReac Type Severity Reaction Status Date / Time Penicillins Allergy Intermediate HX ASTHMA, Verified 05/15/23 16:52 MADE ASTHMA LIKE SYMPTOMS WORSE Home Medications Medication Instructions Recorded Confirmed Type aspirin 81 mg tablet,delayed 81 mg PO DAILY 04/25/19 05/15/23 History release (Adult Low Dose Aspirin) hydrochlorothiazide 25 mg tablet 25 mg PO QAM 04/25/19 05/15/23 History latanoprost 0.005 % eye drops 1 drops OPB QPM 04/25/19 05/15/23 History lisinopril 40 mg tablet 40 mg PO QAM 04/25/19 05/15/23 History atorvastatin 20 mg tablet 20 mg PO QAM 05/15/23 05/15/23 History carvedilol 12.5 mg tablet 12.5 mg PO BID 05/15/23 05/15/23 History cholecalciferol (vitamin D3) 25 25 mcg PO DAILY 05/15/23 05/15/23 History mcg (1,000 unit) capsule (Vitamin D3) levothyroxine 112 mcg tablet 112 mcg PO DAILYBB 05/15/23 05/15/23 History vitamin B complex-vitamin C-folic 1 tab PO DAILY 05/15/23 05/15/23 History acid 1 mg tablet Patient History Medical History CKD (chronic kidney disease), stage III Hypothyroidism History of colon polyps Endometrial cancer HX HYSTERECTOMY 20 YR AGO , HX RADIATION HTN (hypertension) Surgical History Status post EDY-BSO History of cataract surgery LEFT History of colonoscopy History of hysterectomy Family History Family/Other Hypertension Grandmother Breast cancer Brother Cancer Brother Cancer Social History Smoking Status: Never smoker Second Hand Exposure: No; Do You Dip or Chew Tobacco: No; Hx Alcohol Use: No Hx Substance Use: No Preferred Language: [place] Communication Ability: Effective Visual Impairment: Limited Hearing Ability: Normal Stucco Applicator Required: No Beliefs That Will Affect Care: None marital status: Single Current Living Situation: Alone current occupational status: retired Other Information That Helps Us Care for You: No Feels Safe at Home: Yes Safety Concerns: Feels Safe At This Time Assistive Devices: Cane and Other Results & Data Vital Signs (Past 12 Hours) Vital Signs Temp Pulse Pulse Resp BP Pulse Ox O2 Del Method 05/21/23 07:06 37.1 C 76 16 124/75 92 Room Air 05/21/23 07:00 75 05/21/23 03:00 36.5 C 78 16 127/70 93 Room Air 05/21/23 00:30 85 05/20/23 22:43 37 C 73 16 143/78 H 94 Room Air
[2023-05-21] MEDS: SODIUM CHLORIDE 0.9% 1,000 ML IV SCH (13:24)
--- NOTE | 2023-05-21 17:57 | Hospitalist Progress Note ---
Date of Service May 21, 2023 Assessment & Plan (1) UTI (urinary tract infection): (2) Rhabdomyolysis: (3) Proximal humeral fracture: (4) Clavicular fracture: (5) Traumatic ecchymosis of left upper arm: (6) Acute metabolic encephalopathy: (7) Repeated falls: (8) CKD (chronic kidney disease), stage III: (9) HTN (hypertension): (10) Hypothyroidism: Plan This is a 78-year-old female with PMHx significant for hypertension, CKD 3, dyslipidemia, acquired hypothyroidism, chronic borderline hyponatremia who presents after multiple falls at home and acute metabolic encephalopathy in setting of UTI. Acute Metabolic Encephalopathy Likely in setting of UTI Mentation improving in ED, but unsure nature or details of falls CT head without acute intracranial abnormality Tox screen negative Biofire negative Chest XRAY with no pneumonia UA suggestive of infection, urine Cx currently growing coag neg staph not saprophyticus Received 3 days of Rocephin Switched to macrobid (day 3/7) to which urine is susceptible Delirium precautions. Frequent reorientation, avoid sedating medications Pt currently AAOx3, mentation improved. UTI (urinary tract infection) UA suggestive of infection Also noted calcium oxalate crystals and budding yeast urine Cx grew coag neg staph not saprophyticus Received 3 days of Rocephin Rocephin switched to macrobid (day 3/7) to which urine is susceptible Hyponatremia Noted low sodium Follows with nephrology outpt Nephrology consulted on 05/20 with Na of 128 Appreciate recs Calcium Oxalate Crystals Abdominal Pain UA noting calcium oxalate crystals Pt with abdominal pain Hx of kidney stones CT/abd pelvis ordered -noted severe R hydronephrosis -Distended gallbladder with mild intrahepatic and extra hepatic ductal dilatation. Severe R hydronephrosis Seen on CT abd/pelvis Per pt, known Hx, follows with nephrology. No Urology Urology consult placed, appreciate recs -no acute intervention -Urology outpt f/u Distended gallbladder with mild intrahepatic and extra hepatic ductal dilatation noted on CT abd/pelvis LFTs initially elevated on admission US gallbladder ordered noting no acute cholecystitis GI consulted, appreciate recs -discussion of MRCP, pt declining Continue with po cipro and flagyl Day 3 of 10 CKD (chronic kidney disease), stage [address] Stevens, h/o renal stones. Cr at baseline ~1. Continue to monitor with daily BMP Currently wnl Rhabdomyolysis CK >1000 in setting of falls Cr at baseline ~ 1 Initial HS trop mildly elevated at 35.7, downtrended to 27.5 No chest pain or acute EKG changes. Likely elevated in setting of rhabdo IV fluids discontinued, taking po Continue to trend CK- currently normal Repeated falls Traumatic ecchymosis of left upper arm Clavicular fracture Proximal humeral fracture Has had at least 2 unwitnessed falls in the past few days with extensive bruising on L arm Lives alone and ambulates independently at baseline Evidence of displaced, comminuted and impacted left proximal humeral fracture, acute- subacute Comminuted R clavicle head fracture on CT cervical spine, XR right clavicle negative Ortho consulted, appreciate the following recs: For Left proximal humerus fracture: -RICE -Ji fracture brace with a shoulder cap, sling for comfort. -No heavy lifting. -Follow up in 2 weeks with x-rays in brace. For Clavicular fracture: -Sling for comfort -clavicle x-rays with serendipity views -Activities as tolerated -F/U in 2 weeks with x-rays 2 views right clavicle and Serendipity view Continue with pain control, fall precautions, PT/OT when able Anemia Hgb ~10 on admission currently downtrending iron panel, ferritin, b12 and folate levels currently supplemented Osteopenia Noted Osteopenia on images DEXA Hx uncertain Vit D level low, increased to D3 125mcg With Hx of fracture + osteopenia, might need to start osteoporosis rx Electrolyte Abnormalities Hyponatremia: Na 128 on admission. Urine osm, na levels. Gentle fluid hydration. Currently improving Hypomagnesemia: replete as needed Hypokalemia: replete as needed Hypophosphatemia: replete as needed Dietary consult for nutritional assessment. Appreciate recs Aspiration Event Pt notes possible aspiration event on 05/16 States that she was eating and talking at the same time Speech consult placed Currently on RA Consider chest XRAY for further eval On Flagyl and cipro as noted above HTN (hypertension) Home regimen includes carvedilol 12.5mg BID, hctz and lisinopril 40mg Given 1L NSS in ED but BP remains borderline low. Continue IV fluids Coreg resumed, as well as as HCTZ and lisinopril Continue to monitor BP Hypothyroidism Continue levothyroxine Diet: HH DVT Ppx: SCDs in setting of anemia and bruising Code status: FULL PCP: Janes De La Rosa Dispo: PT recommending rehab Admission and Anticipated Discharge Date Admission Date: May 15, 2023 Subjective States that she was feeling much better. Able to sit up on her own now and move her head. Was sitting in chair at bedside. Reading occasionally. states she worked with PT, they are recommending use of a cane. Review of Systems Review of Systems: All systems reviewed & are unremarkable except as noted in Subjective Physical Exam Physical Exam: General: Alert, oriented. No acute distress Skin: Bruising on face and left shoulder/arm Psych: Appropriate mood and affect Neuro: difficulty with movements in the bed HEENT: Bruising on face Chest: Nontender to palpation. CV: RRR, Normal s1, s2. No murmurs appreciated Resp: Breath sounds clear bilaterally, no increased effort of breathing. Abdomen: Soft, mildly tender, nondistended. Extremities:bruising on lower extremities bilaterally. left shoulder in sling Results & Data Results & Data Vital Signs (Past 12 Hours) Vital Signs Temp Pulse Pulse Resp BP Pulse Ox O2 Del Method 05/21/23 15:10 37.2 C 80 17 106/66 96 Room Air 05/21/23 11:51 36.9 C 81 17 98/63 L 95 Room Air 05/21/23 07:06 37.1 C 76 16 124/75 92 Room Air 05/21/23 07:00 75
[2023-05-22 07:02] LABS: Basophils # (auto) 0.01 K/uL (0.00-0.20); Basophils % (auto) 0.2 %; Eosinophils # (auto) 0.23 K/uL (0.00-0.50); Hematocrit (blood only) 24.5 % (37.0-47.0); Hemoglobin 8.3 g/dl (12.0-16.0); Immature Granulocytes # (auto) 0.04 K/uL (0.01-0.20); Immature Granulocytes % (auto) 0.7 %; Lymphocytes # (auto) 0.79 K/uL (1.20-3.40); Lymphocytes % (auto) 13.9 %; Mean Corpuscular Hemoglobin 30.4 pg (25.0-34.0); Mean Corpuscular Hgb Conc 33.9 g/dL (32.0-36.0); Mean Corpuscular Volume 89.7 fL (80.0-100.0); Mean Platelet Volume 9.2 fL (9.4-12.4); Monocytes # (auto) 0.96 K/uL (0.11-0.59); Monocytes % (auto) 16.8 %; Neutrophils # (auto) 3.67 K/uL (1.40-6.50); Neutrophils % (auto) 64.4 %; Platelet Count 188 K/uL (130-400); RDW Coefficient of Variation 16.6 % (11.5-14.5); RDW Standard Deviation 51.1 fL (36.4-46.3); Red Blood Count 2.73 M/uL (4.20-5.40)
[2023-05-22 07:21] LABS: Albumin Globulin Ratio 1.8 (0.9-2); Albumin Level 2.9 gm/dl (3.4-5.0); BUN Creatinine Ratio 14.9 (10-20); Creatinine Clr Calc Pharmacy 70.9 ml/min; Est GFR (African American) 98.3 ml/min; Est GFR (Non-African American) 84.8 ml/min; Globulin 1.6 gm/dl (2.5-4.0); Magnesium 1.6 mg/dl (1.7-2.4); Potassium 3.8 mmol/L (3.5-5.1); Total Protein 4.5 gm/dl (6.0-8.3)
[2023-05-22] MEDS: MAGNESIUM SULFATE / D5W 1 GM/100 ML BAG IV SCH (09:17)
--- NOTE | 2023-05-22 10:51 | Nephrology Progress Note ---
Date of Service May 22, 2023 Assessment & Plan Admission and Anticipated Discharge Date Admission Date: May 15, 2023 Subjective Assessment & Plan (1) Hyponatremia: Have to stop HCTZ from now on. She was getting HCTZ also for renal Stone prevention not just HTN. Also BP goal need to be higher given her frailness and recurrent falls. Continue NS at 80 ml/hr. urine osm was 645 so does need some lasix iv also to lower urine osm and Cause free water diuresis. effect of HCTZ will be present for about a week so low Na will not get to normal quickly. as long as they are 128+ and stable will not hold up the discharge. (2) Hydronephrosis: (3) CKD (chronic kidney disease), stage III: Chronic hydro and CKD. already evaluated by urology. No acute intervention needed. (4) UTI (urinary tract infection): being treated. on Cipro and NTFN also S--C/o some pain. No new issues. Physical Exam Physical Exam: General: Alert, oriented. No acute distress Skin: Bruising on face and left shoulder/arm Psych: Appropriate mood and affect Neuro: difficulty with movements in the bed HEENT: Bruising on face Chest: Nontender to palpation. CV: RRR, Normal s1, s2. No murmurs appreciated Resp: Breath sounds clear bilaterally, no increased effort of breathing. Abdomen: Soft, mildly tender, nondistended. Extremities:bruising on lower extremities bilaterally. left shoulder in sling Results & Data Vital Signs (Past 12 Hours) Vital Signs Temp Pulse Pulse Resp BP Pulse Ox O2 Del Method 05/22/23 09:00 72 05/22/23 09:00 Room Air 05/22/23 07:57 37 C 82 20 135/75 95 Room Air 05/22/23 02:44 36.6 C 74 20 126/70 90 Room Air 05/21/23 23:40 81 05/21/23 23:17 36.7 C 75 18 108/72 94 Room Air
[2023-05-22] MEDS: POTASSIUM CHLORIDE CRTAB 20 MEQ TABCR PO SCH (10:59)
[2023-05-22] MEDS: FUROSEMIDE INJ 20 MG/2 ML VIAL IV SCH (10:59)
--- NOTE | 2023-05-22 12:05 | Discharge Summary ---
Discharge Summary Date of Service May 22, 2023 Notes For Next Care Provider Please ensure followup with Urology Please ensure followup with Nephrology Please ensure followup with Orthopedics Please continue to monitor electrolytes (sodium, magnesium and potassium) in the next week after discharge. Per Orthopedics: "Sling for comfort RUE, activities as tolerated with RUE Ji with shoulder cap LUE, sling for comfort, okay to do gentle range of m otion exercises with hand and wrist Ice and elevate hand to help with LUE distal swelling F/u in office in 2 weeks with SHANICE Lopez PA-C 06/04 @ 3:30 with x-rays 3 views L shoulder in brace & if pain R SC jt 2 view R clavicle + Serindipity view" Medication Changes From Visit STOP hydrochlorothiazide per nephrology Macrobid BID x 3 more days for UTI cipro 500mg BID and Flagyl 500mg q8h x 7 more days for possible gallbladder infection Admission HPI Per Admitting Provider This is a 78-year-old female with PMH of hypertension, CKD 3, dyslipidemia, acquired hypothyroidism, chronic borderline hyponatremia and other medical problems listed below who presents after multiple falls at home and altered mental status. History primarily obtained from [facility] as patient does not remember events from the past few days other than she felt that she has been in a "black hole". Patient lives in [facility] and predominantly student housing and has lived in the building for the past 40 years. He is close to both the landlord and maintenance staff, who check in on her a few times per week. At baseline, patient is alert and oriented, independent with ADLs and walks a few miles a day. [facility] or walking home when she fell a few days ago. Does not remember any details of the fall. When the maintenance staff checked on patient earlier today, she was found on the ground in between the bathroom in her bedroom and was brought to the ED for further evaluation. Patient does not remember any details of this fall or how long she was on the ground. Endorses pain in areas with bruising such as left arm, left knee and right forehead. Denies any fever, chills, lightheadedness, chest pain, shortness of breath, nausea, vomiting, abdominal pain, dysuria, hematuria, diarrhea or constipation. Does not have any close living family but does have a cousin who resides in [place]. Otherwise considers [place] as close his family. 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 Principal Dx & Hospital Course #1 = Principal Diagnosis (1) UTI (urinary tract infection): (2) Rhabdomyolysis: (3) Proximal humeral fracture: (4) Clavicular fracture: (5) Traumatic ecchymosis of left upper arm: (6) Acute metabolic encephalopathy: (7) Repeated falls: (8) CKD (chronic kidney disease), stage III: (9) HTN (hypertension): (10) Hypothyroidism: Plan This is a 78-year-old female with PMHx significant for hypertension, CKD 3, dyslipidemia, acquired hypothyroidism, chronic borderline hyponatremia who presents after multiple falls at home and acute metabolic encephalopathy in setting of UTI. Acute Metabolic Encephalopathy Likely in setting of UTI Mentation improving in ED, but unsure nature or details of falls CT head without acute intracranial abnormality Tox screen negative Biofire negative Chest XRAY with no pneumonia UA suggestive of infection, urine Cx currently growing coag neg staph not sapro phyticus Received 3 days of Rocephin Switched to macrobid (day 3/7) to which urine is susceptible Delirium precautions. Frequent reorientation, avoid sedating medications Pt currently AAOx3, mentation improved. UTI (urinary tract infection) UA suggestive of infection Also noted calcium oxalate crystals and budding yeast urine Cx grew coag neg staph not saprophyticus Received 3 days of Rocephin Rocephin switched to macrobid (day 3/7) to which urine is susceptible Hyponatremia Noted low sodium Follows with nephrology outpt Nephrology consulted on 05/20 with Na of 128 Appreciate recs Calcium Oxalate Crystals Abdominal Pain UA noting calcium oxalate crystals Pt with abdominal pain Hx of kidney stones CT/abd pelvis ordered -noted severe R hydronephrosis -Distended gallbladder with mild intrahepatic and extra hepatic ductal dilatation. Severe R hydronephrosis Seen on CT abd/pelvis Per pt, known Hx, follows with nephrology. No Urology Urology consult placed, appreciate recs -no acute intervention -Urology outpt f/u Distended gallbladder with mild intrahepatic and extra hepatic ductal dilatation noted on CT abd/pelvis LFTs initially elevated on admission US gallbladder ordered noting no acute cholecystitis GI consulted, appreciate recs -discussion of MRCP, pt declining Continue with po cipro and flagyl Day 3 of 10 CKD (chronic kidney disease), stage III Follow[address] Dr[address] Stevens, h/o renal stones. Cr at baseline ~1. Continue to monitor with daily BMP Currently wnl Rhabdomyolysis CK >1000 in setting of falls Cr at baseline ~ 1 Initial HS trop mildly elevated at 35.7, downtrended to 27.5 No chest pain or acute EKG changes. Likely elevated in setting of rhabdo IV fluids discontinued, taking po Continue to trend CK- currently normal Repeated falls Traumatic ecchymosis of left upper arm Clavicular fracture Proximal humeral fracture Has had at least 2 unwitnessed falls in the past few days with extensive bruising on L arm Lives alone and ambulates independently at baseline Evidence of displaced, comminuted and impacted left proximal humeral fracture, acute- subacute Comminuted R clavicle head fracture on CT cervical spine, XR right clavicle negative Ortho consulted, appreciate the following recs: For Left proximal humerus fracture: -RICE -Ji fracture brace with a shoulder cap, sling for comfort. -No heavy lifting. -Follow up in 2 weeks with x-rays in brace. For Clavicular fracture: -Sling for comfort -clavicle x-rays with serendipity views -Activities as tolerated -F/U in 2 weeks with x-rays 2 views right clavicle and Serendipity view Continue with pain control, fall precautions, PT/OT when able Anemia Hgb ~10 on admission currently downtrending iron panel, ferritin, b12 and folate levels currently supplemented Osteopenia Noted Osteopenia on images DEXA Hx uncertain Vit D level low, increased to D3 125mcg With Hx of fracture + osteopenia, might need to start osteoporosis rx Electrolyte Abnormalities Hyponatremia: Na 128 on admission. Urine osm, na levels. Gentle fluid hyd ration. Currently improving Hypomagnesemia: replete as needed Hypokalemia: replete as needed Hypophosphatemia: replete as needed Dietary consult for nutritional assessment. Appreciate recs Aspiration Event Pt notes possible aspiration event on 05/16 States that she was eating and talking at the same time Speech consult placed Currently on RA Consider chest XRAY for further eval On Flagyl and cipro as noted above HTN (hypertension) Home regimen includes carvedilol 12.5mg BID, hctz and lisinopril 40mg Given 1L NSS in ED but BP remains borderline low. Continue IV fluids Coreg resumed, as well as as HCTZ and lisinopril Continue to monitor BP Hypothyroidism Continue levothyroxine Diet: HH DVT Ppx: SCDs in setting of anemia and bruising Code status: FULL PCP: Janes De La Rosa Dispo: PT recommending rehab Discharge Exam General: Alert, oriented. No acute distress Skin: Bruising on face and left shoulder/arm Psych: Appropriate mood and affect Neuro: difficulty with movements in the bed HEENT: Bruising on face Chest: Nontender to palpation. CV: RRR, Normal s1, s2. No murmurs appreciated Resp: Breath sounds clear bilaterally, no increased effort of breathing. Abdomen: Soft, mildly tender, nondistended. Extremities:bruising on lower extremities bilaterally. left shoulder in sling Updated Medication List Medication Instructions Recorded Confirmed Type aspirin 81 mg tablet,delayed 81 mg PO DAILY 04/25/19 05/15/23 History release (Adult Low Dose Aspirin) hydrochlorothiazide 25 mg tablet 25 mg PO QAM 04/25/19 05/15/23 History latanoprost 0.005 % eye drops 1 drops OPB QPM 04/25/19 05/15/23 History lisinopril 40 mg tablet 40 mg PO QAM 04/25/19 05/15/23 History atorvastatin 20 mg tablet 20 mg PO QAM 05/15/23 05/15/23 History carvedilol 12.5 mg tablet 12.5 mg PO BID 05/15/23 05/15/23 History cholecalciferol (vitamin D3) 25 25 mcg PO DAILY 05/15/23 05/15/23 History mcg (1,000 unit) capsule (Vitamin D3) levothyroxine 112 mcg tablet 112 mcg PO DAILYBB 05/15/23 05/15/23 History vitamin B complex-vitamin C-folic 1 tab PO DAILY 05/15/23 05/15/23 History acid 1 mg tablet ciprofloxacin HCl 500 mg tablet 500 mg PO BID #14 tabs 05/22/23 Rx magnesium oxide 400 mg (241.3 mg 400 mg PO BID #14 tabs 05/22/23 Rx magnesium) tablet metronidazole 500 mg tablet 500 mg PO TID #21 tabs 05/22/23 Rx nitrofurantoin 100 mg PO BID #6 caps 05/22/23 Rx monohydrate/macrocrystals 100 mg capsule Hospital Stay Data Consultations 05/15/23 17:44 ED Decision to Admit Stat 05/15/23 20:10 Consult Orthopedic Surgery Routine 05/17/23 23:39 Consult Urology Routine 05/17/23 23:43 Consult Gastroenterology Routine 05/21/23 08:45 Consult Nephrology Routine Diagnostic Imagining Performed 05/15/23 17:26 CT cervical spine wo con Stat CT head/brain wo con Stat 05/17/23 20:10 CT abd pelvis IV con only Urgent 05/18/23 US gallbladder Urgent Discharge Instructions Given to Patient (Per Discharging Provider) Holli, You fell at home and broke your left arm and possibly your right clavicle as well. You were also treated for a urinary tract infection. We were concerned that there was an infection of your gallbladder as well but you declined further testing for that. We treated you with antibiotics for a possible infection there. We are discharging you home with 3 more days of antibiotics for the urinary tract infection. We are also discharging you home with 7 more days of antibiotics for the possible gallbladder infection. Your orthopedic surgeon has placed further instructions for you below for your fractures. It was also noted that you had chronic hydronephrosis of one of your kidneys. You were seen by Urology and they will follow up with you as an outpatient. You were also seen by Nephrology for your low sodium levels. You followed with this provider before and he indicated that it is ok for you to be discharged home with close follow up with his office. He would like you to STOP taking your home hydrochlorothiazide. Your magnesium levels were also very low so we are discharging you home with supplements. Your primary care provider will monitor your levels. Please keep close follow up with your primary care provider after discharge. Please do not hesitate to come back to the emergency room if your symptoms worsen or return. It was a pleasure taking care of you while you were here.
== END 2023-05-22 14:03 | DRG 689 ==
LOC: ED 15:33 → EDINP 18:00 → 2S 20:10
DX: D64.9 Anemia, unspecified; Z87.891 Personal history of nicotine dependence; N13.6 Pyonephrosis; E87.1 Hypo-osmolality and hyponatremia; N18.30 Chronic kidney disease, stage 3 unspecified; I12.9 Hypertensive chronic kidney disease with stage 1 through stage 4 chronic kidney disease, or unspecified chronic kidney disease; Z79.890 Hormone replacement therapy; G93.41 Metabolic encephalopathy; E03.9 Hypothyroidism, unspecified; E83.42 Hypomagnesemia; E87.6 Hypokalemia; B95.8 Unspecified staphylococcus as the cause of diseases classified elsewhere; Z92.3 Personal history of irradiation; Z88.0 Allergy status to penicillin; S42.021A Displaced fracture of shaft of right clavicle, initial encounter for closed fracture; W18.30XA Fall on same level, unspecified, initial encounter; S42.292A Other displaced fracture of upper end of left humerus, initial encounter for closed fracture; M85.80 Other specified disorders of bone density and structure, unspecified site; Z79.82 Long term (current) use of aspirin; M62.82 Rhabdomyolysis; R29.6 Repeated falls; E83.39 Other disorders of phosphorus metabolism